=== PATIENT | female | born 1960 | race Caucasian/White ===

== ENCOUNTER → 2020-02-06 08:36 | Outpatient (BNVA) | payer BC, SELFPAY | PROVIDERS: PCP Internal Medicine; Referring Provider Internal Medicine; Visit Provider Student in an Organized Health Care Education/Training Program | DX: Z76.89 Persons encountering health services in other specified circumstances (principal) ==

== ENCOUNTER → 2020-05-09 08:37 | Outpatient (BNVA) | payer BC, SELFPAY | PROVIDERS: PCP Internal Medicine; Referring Provider Internal Medicine; Visit Provider Student in an Organized Health Care Education/Training Program | DX: Z13.89 Encounter for screening for other disorder (principal) | CPT/HCPCS: 20610 ==

== ENCOUNTER 2020-07-23 15:04 | Outpatient (REF) | payer BC, SELFPAY ==
--- NOTE | ~2020-07-23 | XR_ITS ---
EXAMINATION: XR SHOULDER, RIGHT CLINICAL INFORMATION: Rheumatoid arthritis. COMPARISON: None TECHNIQUE: AP external rotation, Grashey, scapular Y, and axillary views of the right shoulder. FINDINGS: Severe glenohumeral joint space narrowing with bony remodeling including flattening of the humeral head and glenoid. Subchondral sclerosis and underlying subchondral cystic change with large marginal osteophytes. No acute fracture or dislocation. No abnormal soft tissue calcification. XR/XR shoulder RT min 2V IMPRESSION: Severe glenohumeral osteoarthritis with prominent bony remodeling.
[2020-07-23 16:40] LABS: MANUAL DIFF FLAG NO
[2020-07-23 16:47] LABS: Basophils Absolute Auto 0.1 X10*3/uL (0.0-0.2); Basophils Percent Auto 0.4 % (0-2); Eosinophils Absolute Auto 0.2 X10*3/uL (0.0-0.4); Eosinophils Percent Auto 1.7 % (0-4); Hematocrit 41.8 % (37-47); Imm Gran Abs Auto 0.08 X10*3/uL (0.00-0.03); Imm Gran Pct Auto 0.7 % (0.0-0.4); Lymphocytes Absolute Auto 1.7 X10*3/uL (1.2-4.9); Lymphocytes Percent Auto 14.9 % (20-40); Mean Corpuscular HGB Conc 31.1 g/dl (31.0-35.0); Mean Corpuscular Hemoglobin 30.1 pg (27.0-33.0); Mean Corpuscular Volume 96.8 fL (80-98); Mean Platelet Volume 9.8 fL (9.4-12.3); Monocytes Absolute Auto 0.8 X10*3/uL (0.1-1.2); Monocytes Percent Auto 7.3 % (2-11); Neutrophils Absolute Auto 8.4 X10*3/uL (2.0-8.3); Platelet Count 311 X10*3/uL (160-400); Red Blood Count 4.32 X10*6/uL (4.20-5.50); Red Cell Distribution Width 12.5 % (11.0-16.0); White Blood Count 11.2 X10*3/uL (4.8-10.8)
[2020-07-23 17:03] LABS: Alanine Aminotransferase 19 U/L (0-31); Albumin Level 4.1 g/dL (3.5-5.0); Alkaline Phosphatase 94 U/L (39-117); Anion Gap 13 (12-20); Aspartate Amino Transferase 17 U/L (5-31); Bilirubin Total 0.4 mg/dL (0.0-1.0); Blood Urea Nitrogen 17 mg/dL (9-16); C Reactive Protein 2.76 mg/dL (< or = 0.50); Calcium 9.7 mg/dL (8.4-10.2); Carbon Dioxide 31 mmol/L (22-29); Chloride 103 mmol/L (96-108); Estimated Glomerular Filt Rate > 60; Glucose Random 81 mg/dL (60-115); Potassium 4.9 mmol/L (3.3-5.1); Sodium 142 mmol/L (135-145); Total Protein 7.2 g/dL (6.5-8.0)
[2020-07-23 17:41] LABS: Erythrocyte Sedimentation Rate 30 MM/HR (0-20)
== END 2020-07-23 15:05 | disposition home or self-care (01) ==
LOC: HO.LAB 15:04
PROVIDERS: PCP Internal Medicine; Visit Provider Student in an Organized Health Care Education/Training Program
DX: M05.9 Rheumatoid arthritis with rheumatoid factor, unspecified (principal)
CPT/HCPCS: 36415; 73030; 80053; 85025; 85652; 86140

== ENCOUNTER 2020-08-01 09:15 | Outpatient (REF) | payer BC, SELFPAY ==
--- NOTE | ~2020-08-01 | XR_ITS ---
EXAMINATION: XR BILATERAL KNEES CLINICAL INFORMATION: Knee pain COMPARISON: None TECHNIQUE: Bilateral knees one view. Right knee 2 views. FINDINGS: Right Knee: Severe medial compartment arthritis, moderate to severe lateral compartment arthritis, mild patellofemoral arthritis. This is characterized by joint space loss, osteophytes, sclerosis. Small suprapatellar joint fluid. No visible acute fracture or dislocation. Osteopenia. Ossific densities projected in the intercondylar region, could reflect osteophytes or loose bodies. Left Knee: Medial and lateral compartment joint spaces are relatively maintained. XR/XR knee standing BI IMPRESSION: Right knee tricompartment osteoarthritis. Severe medial compartment arthritis. Possible loose bodies.
--- NOTE | ~2020-08-01 | XR_ITS ---
EXAMINATION: XR BILATERAL KNEES CLINICAL INFORMATION: Knee pain COMPARISON: None TECHNIQUE: Bilateral knees one view. Right knee 2 views. FINDINGS: Right Knee: Severe medial compartment arthritis, moderate to severe lateral compartment arthritis, mild patellofemoral arthritis. This is characterized by joint space loss, osteophytes, sclerosis. Small suprapatellar joint fluid. No visible acute fracture or dislocation. Osteopenia. Ossific densities projected in the intercondylar region, could reflect osteophytes or loose bodies. Left Knee: Medial and lateral compartment joint spaces are relatively maintained. XR/XR knee RT 2V IMPRESSION: Right knee tricompartment osteoarthritis. Severe medial compartment arthritis. Possible loose bodies.
== END 2020-08-01 09:16 | disposition home or self-care (01) ==
LOC: HO.HOSX 09:15
PROVIDERS: Visit Provider Orthopaedic Surgery
DX: M19.211 Secondary osteoarthritis, right shoulder (principal); M05.9 Rheumatoid arthritis with rheumatoid factor, unspecified; M17.5 Other unilateral secondary osteoarthritis of knee
CPT/HCPCS: 73560; 73565; J1100

== ENCOUNTER 2020-09-23 14:07 | Outpatient (REF) | payer MEDICARE, SELFPAY ==
[2020-09-23 14:42] LABS: MANUAL DIFF FLAG NO
[2020-09-23 14:45] LABS: Basophils Absolute Auto 0.1 X10*3/uL (0.0-0.2); Basophils Percent Auto 0.5 % (0-2); Eosinophils Absolute Auto 0.3 X10*3/uL (0.0-0.4); Eosinophils Percent Auto 2.7 % (0-4); Hematocrit 41.6 % (37-47); Hemoglobin 13.2 g/dl (12.0-16.0); Imm Gran Abs Auto 0.07 X10*3/uL (0.00-0.03); Imm Gran Pct Auto 0.7 % (0.0-0.4); Lymphocytes Absolute Auto 1.3 X10*3/uL (1.2-4.9); Lymphocytes Percent Auto 12.2 % (20-40); Mean Corpuscular HGB Conc 31.7 g/dl (31.0-35.0); Mean Corpuscular Hemoglobin 30.7 pg (27.0-33.0); Mean Corpuscular Volume 96.7 fL (80-98); Mean Platelet Volume 9.8 fL (9.4-12.3); Monocytes Absolute Auto 0.7 X10*3/uL (0.1-1.2); Monocytes Percent Auto 6.9 % (2-11); Neutrophils Absolute Auto 8.2 X10*3/uL (2.0-8.3); Platelet Count 221 X10*3/uL (160-400); Red Cell Distribution Width 13.4 % (11.0-16.0); White Blood Count 10.7 X10*3/uL (4.8-10.8)
[2020-09-23 15:13] LABS: Alanine Aminotransferase 23 U/L (0-31); Albumin Level 4.5 g/dL (3.5-5.0); Alkaline Phosphatase 70 U/L (39-117); Anion Gap 11 (12-20); Aspartate Amino Transferase 21 U/L (5-31); Bilirubin Total 0.4 mg/dL (0.0-1.0); Blood Urea Nitrogen 14 mg/dL (9-16); C Reactive Protein 0.73 mg/dL (< or = 0.50); Calcium 10.1 mg/dL (8.4-10.2); Carbon Dioxide 31 mmol/L (22-29); Chloride 103 mmol/L (96-108); Estimated Glomerular Filt Rate > 60; Glucose Random 90 mg/dL (60-115); Sodium 140 mmol/L (135-145); Total Protein 7.1 g/dL (6.5-8.0)
[2020-09-23 15:29] LABS: Erythrocyte Sedimentation Rate 7 MM/HR (0-20)
== END 2020-09-23 14:08 | disposition home or self-care (01) ==
LOC: HO.LAB 14:07
PROVIDERS: Visit Provider Student in an Organized Health Care Education/Training Program
DX: M05.9 Rheumatoid arthritis with rheumatoid factor, unspecified (principal)
CPT/HCPCS: 36415; 80053; 85025; 85652; 86140

== ENCOUNTER 2020-09-24 09:19 | Outpatient (REF) | payer MEDICARE, SELFPAY ==
[2020-09-24 11:12] LABS: Glucose Urine UA NEG (NEG); Leukocyte Esterase Urine NEG (NEG); Nitrite Urine NEG (NEG); PH 5.5 (5.0-8.0); Specific Gravity - Urine >= 1.030 (1.005-1.025); Urine Blood NEG (NEG); Urine Ketones 5 MG/DL (NEG); Urine Protein NEG (NEG-TRACE)
[2020-09-24 11:18] LABS: Appearance Urine HAZY; Color Urine DARK YELLOW
[2020-09-24 12:32] LABS: Amorphous Sediment Urine 4+ /LPF; RBC Urine 0 /HPF (0); Squamous Epithelial Cell Urine TRACE /LPF; WBC Urine 0 /HPF (0-4)
== END 2020-09-24 09:20 | disposition home or self-care (01) ==
LOC: HO.LAB 09:19
PROVIDERS: PCP Internal Medicine; Visit Provider Student in an Organized Health Care Education/Training Program
DX: M05.9 Rheumatoid arthritis with rheumatoid factor, unspecified (principal); L40.9 Psoriasis, unspecified; Z79.52 Long term (current) use of systemic steroids; Z79.899 Other long term (current) drug therapy
CPT/HCPCS: 81001; 99212

== ENCOUNTER → 2020-11-06 09:57 | Outpatient (BNVA) | payer MEDICARE, MEDICAID, SELFPAY | PROVIDERS: PCP Internal Medicine; Visit Provider Orthopaedic Surgery | DX: Z01.812 Encounter for preprocedural laboratory examination (principal); Z01.810 Encounter for preprocedural cardiovascular examination ==

== ENCOUNTER → 2020-12-06 11:31 | Outpatient (BNVA) | payer MEDICARE, MEDICAID, SELFPAY | PROVIDERS: Visit Provider Physician Assistant | CPT/HCPCS: 99212 ==

== ENCOUNTER 2020-12-10 13:19 | Inpatient (IN) | payer MEDICARE, MEDICAID, SELFPAY ==
[2020-11-27 17:39] LABS: MANUAL DIFF FLAG NO
[2020-11-27 17:45] LABS: Basophils Absolute Auto 0.1 X10*3/uL (0.0-0.2); Basophils Percent Auto 0.5 % (0-2); Eosinophils Absolute Auto 0.2 X10*3/uL (0.0-0.4); Eosinophils Percent Auto 1.8 % (0-4); Hematocrit 38.4 % (37-47); Hemoglobin 11.9 g/dl (12.0-16.0); Imm Gran Abs Auto 0.07 X10*3/uL (0.00-0.03); Imm Gran Pct Auto 0.7 % (0.0-0.4); Lymphocytes Absolute Auto 1.3 X10*3/uL (1.2-4.9); Lymphocytes Percent Auto 13.2 % (20-40); Mean Corpuscular Hemoglobin 30.3 pg (27.0-33.0); Mean Corpuscular Volume 97.7 fL (80-98); Mean Platelet Volume 9.7 fL (9.4-12.3); Monocytes Absolute Auto 0.6 X10*3/uL (0.1-1.2); Monocytes Percent Auto 5.6 % (2-11); Neutrophils Absolute Auto 7.8 X10*3/uL (2.0-8.3); Neutrophils Percent Auto 78.2 % (45-73); Platelet Count 338 X10*3/uL (160-400); Red Blood Count 3.93 X10*6/uL (4.20-5.50); Red Cell Distribution Width 12.1 % (11.0-16.0)
[2020-11-27 18:12] LABS: Alanine Aminotransferase 20 U/L (0-31); Albumin Level 3.9 g/dL (3.5-5.0); Alkaline Phosphatase 84 U/L (39-117); Anion Gap 16 (12-20); Aspartate Amino Transferase 16 U/L (5-31); Bilirubin Total 0.4 mg/dL (0.0-1.0); Blood Urea Nitrogen 10 mg/dL (9-16); C Reactive Protein 3.57 mg/dL (< or = 0.50); Calcium 9.9 mg/dL (8.4-10.2); Carbon Dioxide 29 mmol/L (22-29); Chloride 101 mmol/L (96-108); Estimated Glomerular Filt Rate > 60; Glucose Random 171 mg/dL (60-115); Sodium 141 mmol/L (135-145); Total Protein 6.8 g/dL (6.5-8.0)
[2020-11-27 18:34] LABS: Erythrocyte Sedimentation Rate 44 MM/HR (0-20)
--- NOTE | 2020-12-04 10:55 | ECG_ITS ---
Test Reason : preop Blood Pressure : / mmHG Vent. Rate : 059 BPM Atrial Rate : 059 BPM P-R Int : 158 ms QRS Dur : 090 ms QT Int : 406 ms P-R-T Axes : 063 010 055 degrees QTc Int : 401 ms Sinus bradycardia Otherwise normal ECG No previous ECGs available Referred By: Asher Reese Electronically Signed By:JANIE FULTON
[2020-12-04 11:16] VITALS: BP 166/87; PULSE 61; RESP 20; O2SAT 97; BMI 33.6
--- NOTE | 2020-12-04 11:46 | P.CONAN_ITS ---
Documented by User: Brittany Carrion NP 12/06/20 14:31 HPI - Anesthesia Eval Consult details Narrative: 60yo F for Right Knee Replacement Total PCP cleared Daily prednisone for RA - also Orencia injections weekly Severe PONV *Multiple Med allergies - NSAIDs = Anaphylaxis* PMFSH Active Problems Active Problems: All Active Problems (Updated 12/04/20 @ 11:32 by Stefania Panchal RN) [facility] systemic steroid user (Acute) [facility] methotrexate user (Acute) Tendinopathy of right rotator cuff (Acute) Secondary osteoarthritis of right shoulder (Acute) Psoriasis (Acute) Seropositive rheumatoid arthritis (Acute) Past Medical History Medical History COVID-19 vaccine series completed Hiatal hernia Post-operative nausea and vomiting Psoriasis Seropositive rheumatoid arthritis Family History Family History Mother Diabetes Father Alzheimer disease Family history of problems with anesthesia: No Surgical History Surgical History H/O colonoscopy Hx of appendectomy Hx of right knee surgery Hx of tubal ligation History of Problems with Anesthesia: No Social History Social History Are you a primary director of health care marketing to a significant other at home: No Do you presently have visiting nurse or other home services: No Alcohol intake: never Patient Tobacco Use Status: Former Tobacco user Quit Date: 32 years ago Tobacco use type: Cigarette Cigarettes Per Day: 15 Years Smoked: 10 Use of substances other than those prescribed or required for medical reasons: Yes Substance Use Type Other:: edible for pain control Have you been hit, kicked, punched, or otherwise hurt by someone within the past year? If so, by whom?: No Are you DNR?: No Advance Directives: No Advance Directives Information Provided: Yes (does not have a HCP) Advance Directives on File: No Recently lost weight without trying: No Eating poorly because of decreased appetite: No Nutrition Risks: No Nutritional Risk Patient : No FDLMP: N/A Poor oral hygiene: No Narrative Narrative: No recent illness No CP/SOB with >4 mets Meds Allergies Allergy/AdvReac Type Severity Reaction Status Date / Time amoxicillin [Augmentin] Allergy Severe Anaphylaxis Verified 12/10/20 07:29 clavulanic acid [Augmentin] Allergy Severe Anaphylaxis Verified 12/10/20 07:29 NSAIDS (Non-Steroidal Allergy Severe Anaphylaxis Verified 12/10/20 07:29 Anti-Inflamma penicillin V Allergy Severe Rash Verified 12/10/20 07:29 hydroxychloroquine Allergy Intermediate rash Verified 12/10/20 07:29 [Plaquenil] Home Medications Medication Instructions Recorded Confirmed Last Taken Type calcium carbonate 600 mg calcium 600 mg PO DAILY 02/06/20 12/04/20 Unknown History (1,500 mg) tablet (Calcium) cholecalciferol (vitamin D3) 10 10 mcg PO DAILY 02/06/20 12/04/20 Unknown History mcg (400 unit) chewable tablet (Vitamin D3) acetaminophen 650 mg 1,300 mg PO QAM 12/04/20 12/04/20 Unknown History tablet,extended release multivitamin 1 tab PO DAILY 12/04/20 12/04/20 Unknown History sertraline 25 mg tablet 25 mg PO DAILY 12/04/20 12/04/20 12/10/20 05:30 History Exam Exam Date and Time: December 04, 2020 1146 Height,Weight and Vital Signs: Height 5 ft 7 in Weight 97.522 kg Last Vital Signs Pulse 61 12/04/20 11:16 Resp 20 12/04/20 11:16 BP 166/87 H 12/04/20 11:16 Pulse Ox 97 12/04/20 11:16 Pertinent Lab Results Pertinent Lab Results: Laboratory Tests 11/27/20 11/27/20 11/27/20 16:15 16:15 16:15 WBC 10.0 RBC 3.93 L Hgb 11.9 L Hct 38.4 MCV 97.7 MCH 30.3 MCHC 31.0 RDW 12.1 Plt Count 338 D MPV 9.7 Immature Gran % (Auto) 0.7 H Neut % (Auto) 78.2 H Lymph % (Auto) 13.2 L [place] % (Auto) 5.6 Eos % (Auto) 1.8 Baso % (Auto) 0.5 Lymph # (Auto) 1.3 [place] # (Auto) 0.6 Eos # (Auto) 0.2 Baso # (Auto) 0.1 Abs Immat Gran (auto) 0.07 H Absolute Neuts (auto) 7.8 Absolute Nucleated RBC 0.000 Nucleated RBC % (auto) 0.0 ESR 44 H Sodium 141 Potassium 5.0 Chloride 101 Carbon Dioxide 29 Anion Gap 16 BUN 10 Creatinine 0.78 Estim Creat Clear Calc TNP Estimated GFR > 60 Random Glucose 171 H D Calcium 9.9 Total Bilirubin 0.4 AST 16 ALT 20 Alkaline Phosphatase 84 C-Reactive Protein 3.57 H Total Protein 6.8 Albumin 3.9 Narrative Narrative: EKG 12/04/20 Vent. Rate : 059 BPM ? ? Atrial Rate : 059 BPM ?? P-R Int : 158 ms? QRS Dur : 090 ms ? ? QT Int : 406 ms ? ? ? P-R-T Axes : 063 010 055 degrees ?? QTc Int : 401 ms ? Sinus bradycardia Otherwise normal ECG No previous ECGs available Airway Mallampati Class: I TM Dist: >3cm Neck ROM: Full Loose/Missing/Broken Teeth: No (Capped molars, perm bridge left lower) Heart: RRR Lungs: CTAB Assessment and Plan Assessment Anesthesia Assessment: Anesthesia Plan Discussed and PAT Visit Final Anesthetic Review Family History of Problems with Anesthesia: No History of Problems with Anesthesia: No Documented by User: Griffin Benz MD 12/10/20 10:35 [facility] Past Medical History Medical History COVID-19 vaccine series completed Hiatal hernia Post-operative nausea and vomiting Psoriasis Seropositive rheumatoid arthritis Family History Family History Mother Diabetes Father Alzheimer disease Surgical History Surgical History H/O colonoscopy Hx of appendectomy Hx of right knee surgery Hx of tubal ligation History of Problems with Anesthesia: Yes (PONV) Social History Social History (Reviewed 12/06/20 @ 11:48 by Jessica Louis [facility] Are you a primary director of health care marketing to a significant other at home: No Do you presently have visiting nurse or other home services: No Alcohol intake: never Patient Tobacco Use Status: Former Tobacco user Quit Date: 32 years ago Tobacco use type: Cigarette Cigarettes Per Day: 15 Years Smoked: 10 Use of substances other than those prescribed or required for medical reasons: Yes Substance Use Type Other:: edible for pain control Have you been hit, kicked, punched, or otherwise hurt by someone within the past year? If so, by whom?: No Are you DNR?: No Advance Directives: No Advance Directives Information Provided: Yes (does not have a HCP) Advance Directives on File: No Recently lost weight without trying: No Eating poorly because of decreased appetite: No Nutrition Risks: No Nutritional Risk Patient : No FDLMP: N/A Poor oral hygiene: No Meds Allergies Allergy/AdvReac Type Severity Reaction Status Date / Time amoxicillin [Augmentin] Allergy Severe Anaphylaxis Verified 12/10/20 07:29 clavulanic acid [Augmentin] Allergy Severe Anaphylaxis Verified 12/10/20 07:29 NSAIDS (Non-Steroidal Allergy Severe Anaphylaxis Verified 12/10/20 07:29 Anti-Inflamma penicillin V Allergy Severe Rash Verified 12/10/20 07:29 hydroxychloroquine Allergy Intermediate rash Verified 12/10/20 07:29 [Plaquenil] Home Medications Medication Instructions Recorded Confirmed Last Taken Type calcium carbonate 600 mg calcium 600 mg PO DAILY 02/06/20 12/04/20 Unknown History (1,500 mg) tablet (Calcium) cholecalciferol (vitamin D3) 10 10 mcg PO DAILY 02/06/20 12/04/20 Unknown History mcg (400 unit) chewable tablet (Vitamin D3) acetaminophen 650 mg 1,300 mg PO QAM 12/04/20 12/04/20 Unknown History tablet,extended release multivitamin 1 tab PO DAILY 12/04/20 12/04/20 Unknown History sertraline 25 mg tablet 25 mg PO DAILY 12/04/20 12/04/20 12/10/20 05:30 History Assessment and Plan Final Anesthetic Review History of Problems with Anesthesia: Yes (PONV) NPO: Yes ASA Class: III Final Preanesthetic Review: No Changes in Pt Med Stat, Meds/Allgs Chart Reviewed, Consent Obtained/Reviewed and Anes Risks/Benef Reviewed Patient Risk: Intermediate Procedure Risk: Low Anesthetic Plan Anesthetic Plan: MAC:, Spinal, Regional Block and Agree w/ Assess. and Plan Disposition: Standard PACU
[2020-12-04 15:00] LABS: MRSA Nasal PCR NEGATIVE (Negative); SA Nasal PCR NEGATIVE (Negative)
[2020-12-10] VITALS (17 sets, daily range): BP systolic 116–187; BP diastolic 49–89; PULSE 53–72; RESP 15–20; TEMP 36.1–37.1; O2SAT 94–99
--- NOTE | ~2020-12-10 | XR_ITS ---
EXAMINATION: XR KNEE, RIGHT CLINICAL INFORMATION: Status post right total knee arthroplasty COMPARISON: Radiographs right knee 08/01/2020. TECHNIQUE: AP and 2 cross table lateral views of the right knee are obtained portably for 3 views. FINDINGS: Patient is status post right total knee arthroplasty. The hardware is intact and in expected alignment. There is no fracture or dislocation. No destructive process. There is subcutaneous emphysema and overlying skin jl as expected. XR/XR knee RT 2V IMPRESSION: Status post total right knee arthroplasty. Hardware intact.
[2020-12-10 06:48] LABS: COVID-19 Test Negative (Negative)
[2020-12-10] MEDS: Scopolamine 1.5 MG PATCH.TD.3 TRANSDERMA (07:12)
--- NOTE | 2020-12-10 07:19 | MHC.SHP ---
Pre-Procedural Eval Section A Date of Service: 12/10/20 The patient is an INPATIENT: No Changes since office visit: Yes Patient answered all questions; No Cold of Flu in the past 2 weeks, No New Medical Problems and No Changes in Medication The History & Physical has been completed within 30 days and I have reviewed it.: Yes Section B Chief Complaint: right knee osteoarthritis Allergies: Allergies Allergy/AdvReac Type Severity Reaction Status Date / Time amoxicillin [Augmentin] Allergy Severe Anaphylaxis Verified 12/06/20 11:48 clavulanic acid [Augmentin] Allergy Severe Anaphylaxis Verified 12/06/20 11:48 NSAIDS (Non-Steroidal Allergy Severe Anaphylaxis Verified 12/06/20 11:48 Anti-Inflamma penicillin V Allergy Severe Rash Verified 12/06/20 11:48 hydroxychloroquine Allergy Intermediate rash Verified 12/06/20 11:48 [Plaquenil] Plan I have reviewed the history and physical and performed a pertinent physical examination on my patient. No changes have occurred unless specified.
[2020-12-10] MEDS: Lactated Ringers 1,000 ML 100 ML IVCONT (07:24)
--- NOTE | 2020-12-10 08:15 | PC.NURSE ---
Verified with Leslie from Pharmacy that 1500mg Vanco was the correct dosing for patients weight. Per Leslie, this dose can be mixed with 250ml NS or 500ml NS.
--- NOTE | 2020-12-10 09:24 | PM.OP ---
Brief Operative Note Date of Service: 12/10/20 Pre-op diagnosis: right knee OA Post-op diagnosis: same Procedure: Right TKA Implants: Lucia triathalon press fit CR 06/05/12 Surgeon: Asher Reese MD Anesthesia: GETA and regional Was an Tent Assembler used for this Procedure?: Yes Tent Assembler: Indira Lemus Estimated blood loss (mL): 200 IV fluids (mL): 1,000 Pathology: other Condition: stable Disposition: PACU
--- NOTE | 2020-12-10 09:25 | P.OP_ITS ---
Operative Note Operative Note Date of Service: 12/10/20 Narrative: Pre-op diagnosis: right knee OA Post-op diagnosis: same Procedure: Right TKA Implants: Se[place] triathalon press fit CR 06/05/12 Surgeon: Asher Reese MD Anesthesia: GETA and regional Was an Document Review Specialist used for this Procedure?: Yes Document Review Specialist: Indira Lemus Estimated blood loss (mL): 200 IV fluids (mL): 1,000 Pathology: other Condition: stable Disposition: PACU Procedure in detail: Patient was brought to the operating room and prepped and draped in standard sterile fashion. A time-out was called to identify proper site proper procedure proper surgeon IV antibiotics were administered. 1 g of IV tranexamic acid was also administered. I began by making a midline incision to the retinaculum and performed a sub-vastus approach. The patella was translated laterally and the knee was flexed up. The medial compartment was eburnated. I performed a medial peel and resected the infrapatellar fat pad. Stan's line was then used to drill an intramedullary femoral guide and my distal femur cut was made in 5 de grees of valgus. I then measured a # _3__ femur and placed my cutting guide and made my anterior posterior and chamfer cuts protecting the soft tissues at all times. Once I was satisfied with my cut I turned my attention to the tibia. I removed the meniscus and , using an external cutting guide, in line with the tibial crest and the third ray, I made my distal tibial cut ( 3 deg slope) while protecting the PCL the posterior soft tissues at all times. An extension block was used to confirm appropriate amount of bony resection. I then sized a #_3_ tibia and once I was satisfied that there was good tibial coverage I placed my trial and with the trial femur in place took the knee through range of motion. I was satisfied with the extension and flexion as well as the stability at 0, 30 and 90 degrees. I then turned my attention to the patella where I removed 1 cm from the undersurface of the patella and then trialed a ___29a___ patellar button. Again the knee was taken through range of motion I was satisfied with the tracking. I then returned to the femur and drilled my femoral lug holes and prepared the tibia. Femoral bone plug was then placed and the knee was irrigated copiously. I then press fit the patella, tibia and femur in standard fashion. I trialed different inserts until I selected a #__13__ insert. The final insert was placed and a 3 minutes iodine soak with local TXA was performed. The knee was then closed with a running Quill suture, a 3 0 Vicryl and jl on the skin. Patient was then placed in sterile dressing and brought to recovery room in stable condition there were no known complications.
[2020-12-10] MEDS: Dextrose 5 % and 0.45 % NaCl 1,000 ML 80 ML IVCONT ×2 (11:11→23:28)
[2020-12-10] MEDS: oxyCODONE HCl Immed Release 5 MG TABLET PO ×2 (13:08→17:34)
[2020-12-10] MEDS: HYDROmorphone HCl 0.5 MG/0.5 ML SYRINGE 0.25 MG IVPUSH (13:09)
--- NOTE | 2020-12-10 14:37 | PM.IMCN ---
History of Present Illness Data of Consult Service Date: 12/10/20 Requesting physician: Asher Reese Primary Care Provider: Unknown Physician HPI Reason for consult: Medical Management 60 year old women with history of depression admitted by Orthopedic surgery and is status post right total knee arthroplasty. At this point she is having minimal amount of pain. She has no acute medical problems. Her vital signs are stable. She is currently resting in bed. Medical consultation was placed. Review of Systems Review of Systems: Denies any recent fever chills or decrease in appetite respiratory denies any shortness of breath coverage production cardiovascular is adjustment of any PND or edema gastrointestinal denies any dysphagia abdominal pain nausea vomiting or diarrhea genitourinary denies any dysuria frequency or hematuria musculoskeletal denies any joint pain or swelling neuropsych denies any weakness or seizures all other systems reviewed are negative [facility] Medical History COVID-19 vaccine series completed Hiatal hernia Post-operative nausea and vomiting Psoriasis Seropositive rheumatoid arthritis Family History Mother Diabetes Father Alzheimer disease Surgical History H/O colonoscopy Hx of appendectomy Hx of right knee surgery Hx of tubal ligation Social History Household Members: Spouse Housing: House Are you a primary career discovery teacher to a significant other at home: No Do you presently have visiting nurse or other home services: No Alcohol intake: never Patient Tobacco Use Status: Former Tobacco user Quit Date: 30 years ago Tobacco use type: Cigarette Cigarettes Per Day: 15 Years Smoked: 6 Use of substances other than those prescribed or required for medical reasons: No Substance Use Type Other:: edible for pain control Have you been hit, kicked, punched, or otherwise hurt by someone within the past year? If so, by whom?: No Do you feel safe in your current relationship?: Yes Is there a partner from a previous relationship who is making you feel unsafe now?: No Are you made to feel afraid or neglected: No Restorationist Healthcare Practices: nondenominational Are you DNR?: No Advance Directives: No Advance Directives Information Provided: Yes (does not have a HCP) Advance Directives on File: No Do you have thoughts of harming others: None Do you have a plan to hurt others: No Plan Recently lost weight without trying: No Eating poorly because of decreased appetite: No Nutrition Risks: No Nutritional Risk Patient : No FDLMP: N/A : No Poor oral hygiene: No Meds Allergies Allergy/AdvReac Type Severity Reaction Status Date / Time amoxicillin [Augmentin] Allergy Severe Anaphylaxis Verified 12/10/20 07:29 clavulanic acid [Augmentin] Allergy Severe Anaphylaxis Verified 12/10/20 07:29 NSAIDS (Non-Steroidal Allergy Severe Anaphylaxis Verified 12/10/20 07:29 Anti-Inflamma penicillin V Allergy Severe Rash Verified 12/10/20 07:29 hydroxychloroquine Allergy Intermediate rash Verified 12/10/20 07:29 [Plaquenil] Active Medications: Current Medications Generic Name Dose Route Start Last Admin Trade Name Freq PRN Reason Stop Dose Admin Acetaminophen 650 mg 12/10/20 14:29 Acetaminophen 325 Mg Tablet PO Q6H PRN Pain, Mild (Pain Scale 1-3) Docusate Sodium 100 mg 12/10/20 21:00 Docusate Sodium 100 Mg Capsule PO BID KALIE Folic Acid 1 mg 12/11/20 09:00 Folic Acid 1 Mg Tablet PO DAILY KALIE Hydromorphone HCl 0.25 mg 12/10/20 10:35 12/10/20 13:09 Hydromorphone Hcl 0.5 Mg/0.5 Ml Syringe IVPUSH 0.25 mg Q5M PRN Administration Pain, Severe (Pain Scale 7-10) Protocol Hydromorphone HCl 0.25 mg 12/10/20 14:33 Hydromorphone Hcl 1 Mg/Ml Syringe IVPUSH Q4H PRN Pain, Severe (Pain Scale 7-10) Protocol Promethazine HCl 12.5 mg/ 50.5 mls @ 202 mls/hr 12/10/20 10:35 Sodium Chloride IV ONCE PRN Nausea and Vomiting Dextrose/Sodium Chloride 1,000 mls @ 80 mls/hr 12/10/20 11:08 12/10/20 11:11 D51/2ns IVCONT 80 mls/hr .[id number] KALIE Administration Vancomycin HCl 1,000 mg/ 270 mls @ 270 mls/hr 12/10/20 19:00 Sodium Chloride IV 12/10/20 19:59 POSTOP ONE Ondansetron HCl 4 mg 12/10/20 10:35 Ondansetron Hcl 4 Mg/2 Ml Vial IVPUSH ONCE PRN Nausea and Vomiting Ondansetron HCl 4 mg 12/10/20 14:29 Ondansetron Hcl 4 Mg/2 Ml Vial IVPUSH Q8H PRN Nausea and Vomiting Oxycodone HCl 5 mg 12/10/20 14:29 Oxycodone Hcl Immed Release 5 Mg Tablet PO Q4H PRN Pain, Moderate (Pain Scale 4-6 Oxycodone HCl 10 mg 12/10/20 21:00 Oxycodone Hcl Er 10 Mg Tab.Er.12h PO BID [facility] Sertraline HCl 25 mg 12/11/20 09:00 Sertraline Hcl 25 Mg Tablet PO DAILY [facility] Sodium Chloride 3 ml 12/10/20 16:00 0.9 % Sodium Chloride Flush 3 Ml Syringe IVFLUSH QSHIFT [facility] Home Medications Medication Instructions Recorded Confirmed Last Taken Type calcium carbonate 600 mg calcium 600 mg PO DAILY 02/06/20 12/04/20 Unknown History (1,500 mg) tablet (Calcium) cholecalciferol (vitamin D3) 10 10 mcg PO DAILY 02/06/20 12/04/20 Unknown History mcg (400 unit) chewable tablet (Vitamin D3) acetaminophen 650 mg 1,300 mg PO QAM 12/04/20 12/04/20 Unknown History tablet,extended release multivitamin 1 tab PO DAILY 12/04/20 12/04/20 Unknown History sertraline 25 mg tablet 25 mg PO DAILY 12/04/20 12/04/20 12/10/20 05:30 History Physical Exam Vital Signs and Narrative: Vital Signs: Last Vital Signs Temp 96.9 F 12/10/20 14:07 Pulse 58 12/10/20 14:07 Resp 18 12/10/20 14:07 BP 144/78 H 12/10/20 14:07 Pulse Ox 94 12/10/20 14:07 Body Mass Index 33.6 Appearing in no acute distress head is normocephalic atraumatic eyes pupils are PERRLA sclera is anicteric mouth throat mucous membranes are intact and moist neck is supple no lymphadenopathy, no JVD noted lung sounds are clear to auscultation heart regular rate rhythm, clear S1, S2 positive bowel sounds, abdomen is soft, nontender neuro patient is alert x3, no focal deficits MSK right knee dressing, surgical dressing present, incision of visualized Results Labs CBC and Chem 7: 11/27/20 16:15 11/27/20 16:15 Labs: Laboratory Results - last 24 hr 12/10/20 06:14 COVID-19 ([facility]) Negative COVID-19 Clin Com See Note Imaging Radiologist's Impressions: Impressions Knee X-Ray 12/10/20 09:46 IMPRESSION: Status post total right knee arthroplasty. Hardware intact. Assessment and Plan (1) Osteoarthritis of right knee: Status: Acute (2) Elevated blood pressure reading: Status: Acute (3) Depression: Status: Acute 60 year old women admitted by orthopedic surgery Right TKA Management as per surgical team pain managment Elevated blood pressure reading likely secondary to pain monitor mental health continue zoloft DVT prophylaxis with mechanical compression boots Attending Dr. Villalpando
[2020-12-10] MEDS: Acetaminophen 325 MG TABLET 650 MG PO (14:46)
[2020-12-10] MEDS: vancomycin HCL 1,000 MG in 0.9 % Sodium Chloride 250 ML 270 MG IV (19:34)
[2020-12-10] MEDS: HYDROmorphone HCl 1 MG/ML SYRINGE 0.25 MG IVPUSH ×2 (19:48→23:29)
[2020-12-10] MEDS: Docusate Sodium 100 MG CAPSULE PO (20:16)
[2020-12-10] MEDS: oxyCODONE HCl ER 10 MG TAB.ER.12H PO (20:16)
[2020-12-10] MEDS: 0.9 % Sodium Chloride Flush 3 ML SYRINGE IVFLUSH (23:29)
[2020-12-11] VITALS (11 sets, daily range): BP systolic 129–156; BP diastolic 58–84; PULSE 60–71; RESP 16–20; TEMP 36.3–37.1; O2SAT 92–98
[2020-12-11] MEDS: oxyCODONE HCl Immed Release 5 MG TABLET PO ×4 (00:12→20:31)
[2020-12-11] MEDS: Acetaminophen 325 MG TABLET 650 MG PO ×2 (00:12→06:03)
[2020-12-11 06:30] LABS: MANUAL DIFF FLAG NO
[2020-12-11 06:47] LABS: Anion Gap 15 (12-20); Blood Urea Nitrogen 7 mg/dL (9-16); Carbon Dioxide 27 mmol/L (22-29); Chloride 101 mmol/L (96-108); Creatinine Clr Calc Pharmacy 105.5; Estimated Glomerular Filt Rate > 60; Glucose Fasting 134 mg/dL (60-99); Potassium 4.1 mmol/L (3.3-5.1); Sodium 139 mmol/L (135-145)
[2020-12-11 06:50] LABS: Basophils Percent Auto 0.1 % (0-2); Eosinophils Percent Auto 0.1 % (0-4); Hematocrit 31.5 % (37-47); Hemoglobin 9.8 g/dl (12.0-16.0); Imm Gran Abs Auto 0.09 X10*3/uL (0.00-0.03); Lymphocytes Absolute Auto 1.4 X10*3/uL (1.2-4.9); Lymphocytes Percent Auto 16.5 % (20-40); Mean Corpuscular HGB Conc 31.1 g/dl (31.0-35.0); Mean Corpuscular Hemoglobin 30.3 pg (27.0-33.0); Mean Corpuscular Volume 97.5 fL (80-98); Mean Platelet Volume 9.4 fL (9.4-12.3); Monocytes Absolute Auto 1.1 X10*3/uL (0.1-1.2); Monocytes Percent Auto 12.9 % (2-11); Neutrophils Percent Auto 69.4 % (45-73); Platelet Count 298 X10*3/uL (160-400); Red Blood Count 3.23 X10*6/uL (4.20-5.50); Red Cell Distribution Width 12.1 % (11.0-16.0); White Blood Count 8.7 X10*3/uL (4.8-10.8)
[2020-12-11] MEDS: 0.9 % Sodium Chloride Flush 3 ML SYRINGE IVFLUSH (08:27)
[2020-12-11] MEDS: Enoxaparin Sodium 40 MG/0.4 ML SYRINGE SUBCUT (08:30)
[2020-12-11] MEDS: oxyCODONE HCl ER 10 MG TAB.ER.12H PO ×2 (08:32→20:31)
[2020-12-11] MEDS: Docusate Sodium 100 MG CAPSULE PO ×2 (08:32→20:31)
[2020-12-11] MEDS: Sertraline HCL 25 MG TABLET PO (08:32)
[2020-12-11] MEDS: Folic Acid 1 MG TABLET PO (08:32)
[2020-12-11] MEDS: HYDROmorphone HCl 1 MG/ML SYRINGE 0.25 MG IVPUSH ×3 (08:35→17:53)
--- NOTE | 2020-12-11 08:36 | PC.NURSE ---
Pt with multiple dilaudid orders one Q4 hours prn and one Q5 minutes PRN, pharmacy contacted and Q5 minutes PRN order DC'd. Dilaudid still linked to dc'd order, pharmacy contacted again and gave okay to administer medication using barcode will not scan override option.
--- NOTE | 2020-12-11 08:54 | P.PNOP_ITS ---
Subjective Subjective Date of Service: 12/11/20 Interval history: POD 1 s/p RT tka No overnight events resting in bed, has some discomfort but managing pain ok. Physical Exam Vital Signs: Vital Signs: Last Vital Signs Temp 97.6 F 12/11/20 07:00 Pulse 60 12/11/20 07:00 Resp 18 12/11/20 08:35 BP 145/67 H 12/11/20 07:00 Pulse Ox 94 12/11/20 07:00 Body Mass Index 33.6 Const: General: cooperative, healthy appearing and no acute distress Resp: Effort & Inspection: normal respiratory effort and able to speak in complete sentences Cardio: Rate: regular rate Peripheral pulses: Peripheral pulses 2+ throughout GI: Palpation (GI): Soft to palpation Skin: General skin exam: no rashes or lesions noted Extrem: Other: bandage clean dry and intact. Annette intact. No erythema or joint effusion. Calf supple nontender. Neurovascularly intact. Procedures Date of Service Date of Service: 12/11/20 Progress Note: A&P Assessment and plan (1) Status post total right knee replacement: Status: Acute Assessment and Plan: * Continue pain mgmnt * Begin lovenox for dvt ppx * begin PT for RT TKA * Dispo planning-Pending PT eval, pain mgmnt Fall Risk Details Current Medications: Current Medications Generic Name Dose Route Start Last Admin Trade Name Freq PRN Reason Stop Dose Admin Acetaminophen 650 mg 12/10/20 14:29 12/11/20 06:03 Acetaminophen 325 Mg Tablet PO 650 mg Q6H PRN Administration Pain, Mild (Pain Scale 1-3) Docusate Sodium 100 mg 12/10/20 21:00 12/11/20 08:32 Docusate Sodium 100 Mg Capsule PO 100 mg BID KALIE Administration Enoxaparin Sodium 40 mg 12/11/20 08:00 12/11/20 08:30 Enoxaparin Sodium 40 Mg/0.4 Ml Syringe SUBCUT 40 mg Q24H KALIE Administration Folic Acid 1 mg 12/11/20 09:00 12/11/20 08:32 Folic Acid 1 Mg Tablet PO 1 mg DAILY KALIE Administration Hydromorphone HCl 0.25 mg 12/10/20 14:33 12/11/20 08:35 Hydromorphone Hcl 1 Mg/Ml Syringe IVPUSH 0.25 mg Q4H PRN Administration Pain, Severe (Pain Scale 7-10) Protocol Promethazine HCl 12.5 mg/ 50.5 mls @ 202 mls/hr 12/10/20 10:35 Sodium Chloride IV ONCE PRN Nausea and Vomiting Dextrose/Sodium Chloride 1,000 mls @ 80 mls/hr 12/10/20 11:08 12/10/20 23:28 D51/2ns IVCONT 80 mls/hr .[id number] KALIE Administration Ondansetron HCl 4 mg 12/10/20 10:35 Ondansetron Hcl 4 Mg/2 Ml Vial IVPUSH ONCE PRN Nausea and Vomiting Ondansetron HCl 4 mg 12/10/20 14:29 Ondansetron Hcl 4 Mg/2 Ml Vial IVPUSH Q8H PRN Nausea and Vomiting Oxycodone HCl 5 mg 12/10/20 14:29 12/11/20 06:02 Oxycodone Hcl Immed Release 5 Mg Tablet PO 5 mg Q4H PRN Administration Pain, Moderate (Pain Scale 4-6 Oxycodone HCl 10 mg 12/10/20 21:00 12/11/20 08:32 Oxycodone Hcl Er 10 Mg Tab.Er.12h PO 10 mg BID KALIE Administration Sertraline HCl 25 mg 12/11/20 09:00 12/11/20 08:32 Sertraline Hcl 25 Mg Tablet PO 25 mg DAILY KALIE Administration Sodium Chloride 3 ml 12/10/20 16:00 12/11/20 08:27 0.9 % Sodium Chloride Flush 3 Ml Syringe IVFLUSH 3 ml QSHIFT KALIE Administration Time Spent With Patient Time: Total time spent is greater than 50% in coordination of care (as documented) at patient's floor/unit and/or counseling patient: Time with patient: less than 15 minutes Quality Stroke Does the patient have a stroke diagnosis?: No VTE Prior VTE?: No VTE Risk Level:: Surgical - high VTE Device Contraindication: N/A - Device Ordered VTE Drug Contraindication: N/A - Med Ordered
[2020-12-11] MEDS: predniSONE 5 MG TABLET PO (11:51)
[2020-12-11] MEDS: Dextrose 5 % and 0.45 % NaCl 1,000 ML 80 ML IVCONT (11:54)
--- NOTE | 2020-12-11 15:09 | HO.POSTANES ---
Post Anesthesia Evaluation Post Anesthesia Evaluation Vital Signs: Vital Signs Temp Pulse Resp BP Pulse Ox 12/11/20 13:33 18 12/11/20 11:00 98.6 F 61 20 129/58 L 97 12/11/20 09:06 60 145/67 H 94 12/11/20 08:35 18 12/11/20 07:00 97.6 F 60 18 145/67 H 94 Anesthesia: Spinal and Nerve Block Mental Status: Awake Pain Control: Satisfactory Nausea/Vomiting: None Hydration: Adequate Anesthesia-Related Issues: No Anes. Related Issues
[2020-12-12] VITALS (7 sets, daily range): BP systolic 138–153; BP diastolic 50–68; PULSE 68–86; RESP 14–18; TEMP 36.3–37.1; O2SAT 90–99
[2020-12-12] MEDS: HYDROmorphone HCl 1 MG/ML SYRINGE 0.25 MG IVPUSH ×4 (01:26→23:39)
[2020-12-12] MEDS: Dextrose 5 % and 0.45 % NaCl 1,000 ML 80 ML IVCONT ×3 (01:28→23:34)
[2020-12-12 06:35] LABS: MANUAL DIFF FLAG NO
[2020-12-12 06:48] LABS: Basophils Percent Auto 0.2 % (0-2); Eosinophils Percent Auto 0.4 % (0-4); Hematocrit 27.6 % (37-47); Hemoglobin 8.7 g/dl (12.0-16.0); Imm Gran Abs Auto 0.13 X10*3/uL (0.00-0.03); Imm Gran Pct Auto 1.4 % (0.0-0.4); Lymphocytes Absolute Auto 1.1 X10*3/uL (1.2-4.9); Lymphocytes Percent Auto 11.5 % (20-40); Mean Corpuscular HGB Conc 31.5 g/dl (31.0-35.0); Mean Corpuscular Hemoglobin 30.4 pg (27.0-33.0); Mean Corpuscular Volume 96.5 fL (80-98); Mean Platelet Volume 9.6 fL (9.4-12.3); Monocytes Absolute Auto 1.5 X10*3/uL (0.1-1.2); Monocytes Percent Auto 15.6 % (2-11); Neutrophils Absolute Auto 6.6 X10*3/uL (2.0-8.3); Neutrophils Percent Auto 70.9 % (45-73); Platelet Count 242 X10*3/uL (160-400); Red Blood Count 2.86 X10*6/uL (4.20-5.50); Red Cell Distribution Width 12.2 % (11.0-16.0); White Blood Count 9.3 X10*3/uL (4.8-10.8)
[2020-12-12 07:29] LABS: Anion Gap 10 (12-20); Blood Urea Nitrogen 4 mg/dL (9-16); Calcium 8.6 mg/dL (8.4-10.2); Carbon Dioxide 31 mmol/L (22-29); Chloride 103 mmol/L (96-108); Creatinine Clr Calc Pharmacy 110.3; Estimated Glomerular Filt Rate > 60; Glucose Fasting 133 mg/dL (60-99); Potassium 4.4 mmol/L (3.3-5.1); Sodium 140 mmol/L (135-145)
--- NOTE | 2020-12-12 08:35 | P.PNOP_ITS ---
Subjective Subjective Date of Service: 12/12/20 Interval history: POD 2 s/p RT tka No overnight events resting in bed, has some discomfort but managing pain ok.Has been out of bed with PT and did some stairs. Physical Exam Vital Signs: Vital Signs: Last Vital Signs Temp 97.3 F 12/12/20 07:53 Pulse 86 12/12/20 07:53 Resp 17 12/12/20 07:53 BP 153/68 H 12/12/20 07:53 Pulse Ox 96 12/12/20 07:53 Body Mass Index 33.6 Const: General: cooperative, healthy appearing and no acute distress Resp: Effort & Inspection: normal respiratory effort and able to speak in complete sentences Cardio: Rate: regular rate Peripheral pulses: Peripheral pulses 2+ throughout GI: Palpation (GI): Soft to palpation Skin: General skin exam: no rashes or lesions noted Extrem: Other: bandage clean dry and intact. Annette intact. No erythema or joint effusion. Calf supple nontender. Neurovascularly intact. Procedures Date of Service Date of Service: 12/12/20 Progress Note: A&P Assessment and plan (1) Status post total right knee replacement: Status: Acute Assessment and Plan: * Continue pain mgmnt * contine lovenox for dvt ppx * continue PT for RT TKA * Dispo planning-Pending PT , pain mgmn Fall Risk Details Current Medications: Current Medications Generic Name Dose Route Start Last Admin Trade Name Freq PRN Reason Stop Dose Admin Acetaminophen 650 mg 12/10/20 14:29 12/11/20 06:03 Acetaminophen 325 Mg Tablet PO 650 mg Q6H PRN Administration Pain, Mild (Pain Scale 1-3) Docusate Sodium 100 mg 12/10/20 21:00 12/11/20 20:31 Docusate Sodium 100 Mg Capsule PO 100 mg BID KALIE Administration Enoxaparin Sodium 40 mg 12/11/20 08:00 12/11/20 08:30 Enoxaparin Sodium 40 Mg/0.4 Ml Syringe SUBCUT 40 mg Q24H KALIE Administration Folic Acid 1 mg 12/11/20 09:00 12/11/20 08:32 Folic Acid 1 Mg Tablet PO 1 mg DAILY KALIE Administration Hydromorphone HCl 0.25 mg 12/10/20 14:33 12/12/20 06:48 Hydromorphone Hcl 1 Mg/Ml Syringe IVPUSH 0.25 mg Q4H PRN Administration Pain, Severe (Pain Scale 7-10) Protocol Promethazine HCl 12.5 mg/ 50.5 mls @ 202 mls/hr 12/10/20 10:35 Sodium Chloride IV ONCE PRN Nausea and Vomiting Dextrose/Sodium Chloride 1,000 mls @ 80 mls/hr 12/10/20 11:08 12/12/20 01:28 D51/2ns IVCONT 80 mls/hr .[id number] KALIE Administration Ondansetron HCl 4 mg 12/10/20 10:35 Ondansetron Hcl 4 Mg/2 Ml Vial IVPUSH ONCE PRN Nausea and Vomiting Ondansetron HCl 4 mg 12/10/20 14:29 Ondansetron Hcl 4 Mg/2 Ml Vial IVPUSH Q8H PRN Nausea and Vomiting Oxycodone HCl 5 mg 12/10/20 14:29 12/11/20 20:31 Oxycodone Hcl Immed Release 5 Mg Tablet PO 5 mg Q4H PRN Administration Pain, Moderate (Pain Scale 4-6 Oxycodone HCl 10 mg 12/10/20 21:00 12/11/20 20:31 Oxycodone Hcl Er 10 Mg Tab.Er.12h PO 10 mg BID KALIE Administration Prednisone 5 mg 12/11/20 10:45 12/11/20 11:51 Prednisone 5 Mg Tablet PO 5 mg DAILY KALIE Administration Sertraline HCl 25 mg 12/11/20 09:00 12/11/20 08:32 Sertraline Hcl 25 Mg Tablet PO 25 mg DAILY KALIE Administration Sodium Chloride 3 ml 12/10/20 16:00 12/12/20 07:17 0.9 % Sodium Chloride Flush 3 Ml Syringe IVFLUSH Not Given QSHIFT KALIE Time Spent With Patient Time: Total time spent is greater than 50% in coordination of care (as documented) at patient's floor/unit and/or counseling patient: Time with patient: 15 - 24 minutes Quality Stroke Does the patient have a stroke diagnosis?: No VTE Prior VTE?: No VTE Risk Level:: Surgical - high VTE Device Contraindication: N/A - Device Ordered VTE Drug Contraindication: N/A - Med Ordered
[2020-12-12] MEDS: Folic Acid 1 MG TABLET PO (09:18)
[2020-12-12] MEDS: predniSONE 5 MG TABLET PO (09:18)
[2020-12-12] MEDS: oxyCODONE HCl ER 10 MG TAB.ER.12H PO ×2 (09:18→20:13)
[2020-12-12] MEDS: Sertraline HCL 25 MG TABLET PO (09:18)
[2020-12-12] MEDS: Docusate Sodium 100 MG CAPSULE PO ×2 (09:18→20:14)
[2020-12-12] MEDS: Enoxaparin Sodium 40 MG/0.4 ML SYRINGE SUBCUT (09:19)
[2020-12-12] MEDS: oxyCODONE HCl Immed Release 5 MG TABLET PO ×2 (15:22→20:13)
[2020-12-13] VITALS (7 sets, daily range): BP systolic 126–171; BP diastolic 51–72; PULSE 57–75; RESP 16–20; TEMP 36.3–37.1; O2SAT 93–98
[2020-12-13] MEDS: oxyCODONE HCl Immed Release 5 MG TABLET PO (03:43)
[2020-12-13 05:42] LABS: MANUAL DIFF FLAG NO
[2020-12-13 05:46] LABS: Basophils Percent Auto 0.2 % (0-2); Eosinophils Absolute Auto 0.2 X10*3/uL (0.0-0.4); Eosinophils Percent Auto 2.2 % (0-4); Hematocrit 26.6 % (37-47); Hemoglobin 8.3 g/dl (12.0-16.0); Imm Gran Abs Auto 0.14 X10*3/uL (0.00-0.03); Imm Gran Pct Auto 1.6 % (0.0-0.4); Lymphocytes Absolute Auto 1.2 X10*3/uL (1.2-4.9); Lymphocytes Percent Auto 14.5 % (20-40); Mean Corpuscular HGB Conc 31.2 g/dl (31.0-35.0); Mean Corpuscular Hemoglobin 30.7 pg (27.0-33.0); Mean Corpuscular Volume 98.5 fL (80-98); Monocytes Percent Auto 11.9 % (2-11); Neutrophils Absolute Auto 5.9 X10*3/uL (2.0-8.3); Neutrophils Percent Auto 69.6 % (45-73); Platelet Count 216 X10*3/uL (160-400); Red Cell Distribution Width 12.2 % (11.0-16.0); White Blood Count 8.5 X10*3/uL (4.8-10.8)
[2020-12-13 06:21] LABS: Anion Gap 11 (12-20); Blood Urea Nitrogen 5 mg/dL (9-16); Calcium 8.6 mg/dL (8.4-10.2); Carbon Dioxide 30 mmol/L (22-29); Chloride 103 mmol/L (96-108); Estimated Glomerular Filt Rate > 60; Glucose Fasting 135 mg/dL (60-99); Sodium 140 mmol/L (135-145)
[2020-12-13] MEDS: HYDROmorphone HCl 1 MG/ML SYRINGE 0.25 MG IVPUSH ×4 (08:11→23:57)
[2020-12-13] MEDS: Enoxaparin Sodium 40 MG/0.4 ML SYRINGE SUBCUT (08:14)
[2020-12-13] MEDS: Folic Acid 1 MG TABLET PO (08:17)
[2020-12-13] MEDS: Sertraline HCL 25 MG TABLET PO (08:17)
[2020-12-13] MEDS: oxyCODONE HCl ER 10 MG TAB.ER.12H PO ×2 (08:17→21:12)
[2020-12-13] MEDS: Docusate Sodium 100 MG CAPSULE PO ×2 (08:17→21:12)
[2020-12-13] MEDS: predniSONE 5 MG TABLET PO (08:17)
--- NOTE | 2020-12-13 15:17 | MHC.CM.PN ---
CM met w/pt and spoke w/ortho PA and pt does not feel ready for d/c and will remain inpt tonight w/plan to D/C Home w/new [facility] tomorrow 12/14/20.
--- NOTE | 2020-12-13 16:26 | MHC.CM.PN ---
LATE ENTRY NOTE FOR 12/11/20, IMM 12/11/20, PT ADMITTED S/P R TOTAL KNEE ARTHROPLASTY, CM MET W/PT WHO REPORTS SHE IS INDEPENDENT W/CARE AT BASELINE, HAS NO DME AND NO HOME MODIFICATIONS, NO HOME SERVICES, PT WILL NEED SCRIPT FOR WALKER PRIOR TO D/C, PT IS DECLINING STR D/T FEAR OF COVID AND WOULD LIKE HOME SERVICES, REFERRAL PLACED W/[facility] AND THEY ARE FOLLOWING PT, PT HAS MANISH CABRAL PCP AND REPORTS HER IS HER HCP. TREVOR DUNN [phone], COPY REQUESTED. D/C PLAN: HOME W/[facility] FOR SN AND HOME PT, FAMILY FOR TRANSPORT.
[2020-12-13] MEDS: 0.9 % Sodium Chloride Flush 3 ML SYRINGE IVFLUSH (17:57)
[2020-12-14] VITALS: BP 169/70; PULSE 66; RESP 18; TEMP 36.4; O2SAT 66
[2020-12-14] MEDS: 0.9 % Sodium Chloride Flush 3 ML SYRINGE IVFLUSH ×2 (00:04→07:55)
[2020-12-14 04:00] VITALS: BP 137/71; PULSE 58; RESP 16; TEMP 36.1; O2SAT 95
[2020-12-14 06:30] LABS: MANUAL DIFF FLAG NO
[2020-12-14 06:36] LABS: Basophils Percent Auto 0.4 % (0-2); Eosinophils Absolute Auto 0.4 X10*3/uL (0.0-0.4); Eosinophils Percent Auto 5.1 % (0-4); Hematocrit 25.6 % (37-47); Hemoglobin 8.1 g/dl (12.0-16.0); Imm Gran Abs Auto 0.11 X10*3/uL (0.00-0.03); Imm Gran Pct Auto 1.5 % (0.0-0.4); Lymphocytes Absolute Auto 1.6 X10*3/uL (1.2-4.9); Lymphocytes Percent Auto 21.7 % (20-40); Mean Corpuscular HGB Conc 31.6 g/dl (31.0-35.0); Mean Corpuscular Hemoglobin 30.9 pg (27.0-33.0); Mean Corpuscular Volume 97.7 fL (80-98); Mean Platelet Volume 9.3 fL (9.4-12.3); Monocytes Absolute Auto 0.8 X10*3/uL (0.1-1.2); Monocytes Percent Auto 11.1 % (2-11); Neutrophils Absolute Auto 4.5 X10*3/uL (2.0-8.3); Neutrophils Percent Auto 60.2 % (45-73); Platelet Count 252 X10*3/uL (160-400); Red Blood Count 2.62 X10*6/uL (4.20-5.50); Red Cell Distribution Width 11.9 % (11.0-16.0); White Blood Count 7.5 X10*3/uL (4.8-10.8)
[2020-12-14] MEDS: oxyCODONE HCl Immed Release 5 MG TABLET PO (06:45)
[2020-12-14 06:49] LABS: Anion Gap 10 (12-20); Blood Urea Nitrogen 5 mg/dL (9-16); Calcium 8.5 mg/dL (8.4-10.2); Carbon Dioxide 33 mmol/L (22-29); Chloride 103 mmol/L (96-108); Creatinine Clr Calc Pharmacy 119.5; Estimated Glomerular Filt Rate > 60; Glucose Fasting 100 mg/dL (60-99); Sodium 142 mmol/L (135-145)
[2020-12-14] MEDS: Acetaminophen 325 MG TABLET 650 MG PO (07:52)
[2020-12-14] MEDS: Folic Acid 1 MG TABLET PO (07:53)
[2020-12-14] MEDS: oxyCODONE HCl ER 10 MG TAB.ER.12H PO (07:53)
[2020-12-14] MEDS: predniSONE 5 MG TABLET PO (07:53)
[2020-12-14] MEDS: Docusate Sodium 100 MG CAPSULE PO (07:53)
[2020-12-14] MEDS: Enoxaparin Sodium 40 MG/0.4 ML SYRINGE SUBCUT (07:53)
[2020-12-14] MEDS: Sertraline HCL 25 MG TABLET PO (07:53)
[2020-12-14 08:00] VITALS: BP 157/87; PULSE 69; RESP 18; TEMP 36.3; O2SAT 97
--- NOTE | 2020-12-14 08:31 | MHC.CM.PN ---
PT CLEARED TO DC HOME TODAY WITH [facility]. FAMILY TO TRANSPORT
--- NOTE | 2020-12-14 10:56 | P.DS_ITS ---
DS: Providers Provider Date of Service: 12/14/20 Date of admission: 12/10/20 13:19 Primary care physician: Ming Leung MD Consults: 12/10/20 14:29 Consult to Hospitalist Routine Consulting Provider: Hospitalist Reason For Exam: medical management DS: Diagnosis Discharge Diagnosis (1) Status post total right knee replacement: Status: Acute DS: Summary Hospital Course Hospital Course: The patient underwent a successful righttotal knee arthroplasty, they were transferred to PACU and then to the floor to recover. During their stay, their vitals were stable, afebrile at 97.4. Labs were unremarkable, H/H 8.1/25.6. POD 1 they were started on Lovenox for DVT ppx, they also received Physical Therapy services twice a day. Prior to discharge, their dressing was changed, incision clean dry and intact, new Aquacel dressing applied and the plan was to be discharged home with VNA services. Time Spent with Patient Time attestation: Total time spent providing and/or coordinating discharge services: Discharge coordination time: Less than 30 minutes Quality: Stroke Does the patient have a stroke diagnosis?: No Physical Exam Vital Signs: Vital Signs: Last Vital Signs Temp 97.4 F 12/14/20 08:00 Pulse 69 12/14/20 08:00 Resp 18 12/14/20 08:00 BP 157/87 H 12/14/20 08:00 Pulse Ox 97 12/14/20 08:00 Body Mass Index 33.6 Const: General: cooperative, healthy appearing and no acute distress Resp: Effort & Inspection: normal respiratory effort and able to speak in complete sentences Cardio: Rate: regular rate Peripheral pulses: Peripheral pulses 2+ throughout GI: Palpation (GI): Soft to palpation Skin: Lesions: no lesions Rashes: no rashes Extrem: Other: Right knee Aquacel clean dry and intact.? Annette intact.? No erythema or joint effusion.? Calf supple nontender.? Neurovascularly intact. DS: Data Data Completed and Pending Completed studies during hospitalization [Text1]: Pending at discharge 12/10/20 09:06 Surgical [PTH] Routine Labs on day of discharge: Laboratory Results - last 24 hr 12/14/20 12/14/20 06:02 06:02 WBC 7.5 RBC 2.62 L Hgb 8.1 L Hct 25.6 L MCV 97.7 MCH 30.9 MCHC 31.6 RDW 11.9 Plt Count 252 MPV 9.3 L Immature Gran % (Auto) 1.5 H Neut % (Auto) 60.2 Lymph % (Auto) 21.7 [place] % (Auto) 11.1 H Eos % (Auto) 5.1 H Baso % (Auto) 0.4 Lymph # (Auto) 1.6 [place] # (Auto) 0.8 Eos # (Auto) 0.4 Baso # (Auto) 0.0 Abs Immat Gran (auto) 0.11 H Absolute Neuts (auto) 4.5 Absolute Nucleated RBC 0.000 Nucleated RBC % (auto) 0.0 Sodium 142 Potassium 4.0 Chloride 103 Carbon Dioxide 33 H Anion Gap 10 L BUN 5 L Creatinine 0.60 Estim Creat Clear Calc 119.5 Estimated GFR > 60 Fasting Glucose 100 H Calcium 8.5 Discharge Plan Discharge Patient Disposition: Home Health Service Discharge Diagnosis: s/p RT TKA Referrals: Gaby EDMOND [Outside] - 1 Week Indira Lemus PA-C [Physician Input Output Clerk] - 2 Weeks (12/26/20 12:45 [facility] Indira Lemus PA-C) Discharge Medications: New acetaminophen 325 mg Tablet 650 mg PO Q6H PRN (Reason: Pain, Mild (Pain Scale 1-3)) 30 Days Qty: 240 RF: 0 docusate sodium 100 mg Capsule 100 mg PO BID 15 Days Qty: 30 RF: 0 oxycodone 5 mg Tablet 5 mg PO Q4H PRN (Reason: Pain, Moderate (Pain Scale 4-6) 7 Days Qty: 42 RF: 0 enoxaparin 40 mg/0.4 mL Syringe 40 mg subcut Q24H 42 Days Qty: 16.8 RF: 0 Continued folic acid 1 mg tablet 1 mg PO DAILY Qty: 90 RF: 1 prednisone 5 mg tablet 5 mg PO DAILY Qty: 90 RF: 1 multivitamin Tablet 1 tab PO DAILY RF: 0 sertraline 25 mg Tablet 25 mg PO DAILY RF: 0 cholecalciferol (vitamin D3) [Vitamin D3] 10 mcg (400 unit) tablet,chewable 10 mcg PO DAILY RF: 0 calcium carbonate [Calcium 600] 600 mg calcium (1,500 mg) tablet 600 mg PO DAILY RF: 0 (DME[facility] See [facility] Instructions .MEDSUPPLY Qty: 1 RF: 0 Held Orencia ClickJect 125 mg/mL auto-injector 125 mg subcut QWEEK Qty: 4 RF: 2 Hold Instructions: Resume on 12/31/20. 1-2 weeks Discontinued acetaminophen [Tylenol Arthritis] 650 mg Tablet Extended Release 1,300 mg PO QAM RF: 0 Discharge Orders: Discharge Order (Routine); Ordered 12/14/20 Ordered By: Indira Lemus Diet: regular diet Activity on Discharge: Use cane or walker Stand Alone Forms: Patient Portal Discharge page Care Plan Goals: Restore function of joint Health Concerns: none Plan of Treatment: Physical Therapy Pain management DVT prophylaxis Hold RA medications x 2 weeks Assessment: * Physical Therapy for Total knee arthroplasty: gait training, ROM 0-12, quad strength * Limit stair climbing * No showering, no tub bath-keep dressing clean, dry and intact * No driving x6 weeks * Continue Aspirin twice a day x 4 weeks * Follow up with [facility] in 2 weeks Discharge Date/Time: 12/14/20 11:02
--- NOTE | 2020-12-14 10:57 | W.MHC.F2F ---
Service Date Service Date: 12/14/20 Reasons for Services Reason for physical therapy: home safety and mobility, therapeutic exercises, restore joint function, gait/transfer training, assess need for DME and ADL training Reason for occupational therapy: home safety and mobility, therapeutic exercises, restore joint function, gait/transfer training, assess need for DME and ADL training Homebound: Leaving the home is medically contraindicated at this time without the asist of a device and/or another person due th the listed conditions above and below. Reason homebound: unsteady gait / fall risk, leg weakness, pain with ambulation, pain with transfers and unable to drive Homebound supporting statement: Pt. is considered homebound due to recent surgery. Unable to drive, poor balance, poor gait mechanics. Certification: Based on the above findings, I certify that this patient is confined to the home and needs intermittent assisted care, physical therapy and/or speech therapy, or continues to need occupational therapy. The patient is under my care, and I have initiated the establishment of the plan of care. The patient will be followed by a physician who will periodically review the plan of care.
== END 2020-12-14 11:02 | disposition home health service (06) | DRG 470 ==
LOC: HO.S3 13:20
PROVIDERS: Physician Assistant; Student in an Organized Health Care Education/Training Program; Admitting Provider Orthopaedic Surgery; PCP Internal Medicine; Visit Provider Orthopaedic Surgery
PROC: 0SRC0JA Replacement of Right Knee Joint with Synthetic Substitute, Uncemented, Open Approach (ICD-10-PCS; CPT 27447; principal; 2020-12-10 07:30)
DX: M17.11 Unilateral primary osteoarthritis, right knee (principal); F32.9 Major depressive disorder, single episode, unspecified; M05.9 Rheumatoid arthritis with rheumatoid factor, unspecified; Z87.891 Personal history of nicotine dependence; Z20.822 Contact with and (suspected) exposure to COVID-19; Z88.0 Allergy status to penicillin; Z88.6 Allergy status to analgesic agent; Z79.52 Long term (current) use of systemic steroids; Z79.899 Other long term (current) drug therapy
CPT/HCPCS: 36415; 73560; 80048; 80053; 85025; 85652; 86140; 86850; 86900; 86901; 87635; 87640; 87641; 88305; 88311; 93005; 97110; 97116; 97161; C1776; J1100; J1170; J1650; J2250; J2405; J3370

== ENCOUNTER → 2020-12-26 12:55 | Outpatient (BNVA) | payer MEDICARE, MEDICAID, SELFPAY | PROVIDERS: PCP Internal Medicine; Visit Provider Physician Assistant | DX: Z47.1 Aftercare following joint replacement surgery (principal); Z96.651 Presence of right artificial knee joint | CPT/HCPCS: 99212 ==

== ENCOUNTER 2021-02-06 12:27 | Outpatient (REF) | payer MEDICARE, MEDICAID, SELFPAY ==
[2021-02-06 13:07] LABS: MANUAL DIFF FLAG NO
[2021-02-06 13:37] LABS: Basophils Absolute Auto 0.1 X10*3/uL (0.0-0.2); Basophils Percent Auto 0.4 % (0-2); Eosinophils Absolute Auto 0.1 X10*3/uL (0.0-0.4); Eosinophils Percent Auto 1.1 % (0-4); Hematocrit 39.4 % (37.0-47.0); Hemoglobin 11.9 g/dl (12.0-16.0); Imm Gran Abs Auto 0.08 X10*3/uL (0.00-0.03); Imm Gran Pct Auto 0.7 % (0.0-0.4); Lymphocytes Absolute Auto 1.3 X10*3/uL (1.2-4.9); Lymphocytes Percent Auto 11.5 % (20-40); Mean Corpuscular HGB Conc 30.2 g/dl (31.0-35.0); Mean Corpuscular Hemoglobin 28.3 pg (27.0-33.0); Mean Corpuscular Volume 93.8 fL (80.0-98.0); Monocytes Absolute Auto 0.4 X10*3/uL (0.1-1.2); Monocytes Percent Auto 3.5 % (2-11); Neutrophils Absolute Auto 9.54 x10*3/uL (2.0-8.3); Neutrophils Percent Auto 82.8 % (45-73); Platelet Count 430 X10*3/uL (160-400); Red Cell Distribution Width 13.1 % (11.0-16.0); White Blood Count 11.5 X10*3/uL (4.8-10.8)
[2021-02-06 14:05] LABS: Alanine Aminotransferase 18 U/L (0-31); Albumin Level 4.1 g/dL (3.5-5.0); Alkaline Phosphatase 81 U/L (39-117); Anion Gap 14 (12-20); Aspartate Amino Transferase 15 U/L (5-31); Bilirubin Total 0.4 mg/dL (0.0-1.0); Blood Urea Nitrogen 12 mg/dL (9-16); C Reactive Protein 4.42 mg/dL (< or = 0.50); Calcium 10.1 mg/dL (8.4-10.2); Carbon Dioxide 31 mmol/L (22-29); Chloride 101 mmol/L (96-108); Estimated Glomerular Filt Rate > 60; Glucose Random 106 mg/dL (60-115); Potassium 4.9 mmol/L (3.3-5.1); Sodium 141 mmol/L (135-145); Total Protein 7.6 g/dL (6.5-8.0)
[2021-02-06 14:19] LABS: Erythrocyte Sedimentation Rate 51 MM/HR (0-20)
== END 2021-02-06 12:28 | disposition home or self-care (01) ==
LOC: HO.LAB 12:27
PROVIDERS: Nurse Practitioner Family; Absent Provider Student in an Organized Health Care Education/Training Program; Visit Provider Orthopaedic Surgery
DX: Z47.1 Aftercare following joint replacement surgery (principal); Z96.651 Presence of right artificial knee joint; M05.9 Rheumatoid arthritis with rheumatoid factor, unspecified
CPT/HCPCS: 36415; 80053; 85025; 85652; 86140; 99212

== ENCOUNTER 2021-02-24 09:27 | Outpatient (REF) | payer MEDICARE, MEDICAID, SELFPAY ==
[2021-02-24 10:41] LABS: MANUAL DIFF FLAG NO
[2021-02-24 10:48] LABS: Basophils Absolute Auto 0.1 X10*3/uL (0.0-0.2); Basophils Percent Auto 0.5 % (0-2); Eosinophils Absolute Auto 0.3 X10*3/uL (0.0-0.4); Eosinophils Percent Auto 2.5 % (0-4); Hematocrit 38.9 % (37.0-47.0); Imm Gran Abs Auto 0.05 X10*3/uL (0.00-0.03); Imm Gran Pct Auto 0.4 % (0.0-0.4); Lymphocytes Absolute Auto 1.3 X10*3/uL (1.2-4.9); Lymphocytes Percent Auto 11.4 % (20-40); Mean Corpuscular HGB Conc 30.8 g/dl (31.0-35.0); Mean Corpuscular Hemoglobin 28.2 pg (27.0-33.0); Mean Corpuscular Volume 91.3 fL (80.0-98.0); Monocytes Absolute Auto 0.8 X10*3/uL (0.1-1.2); Neutrophils Absolute Auto 8.8 x10*3/uL (2.0-8.3); Neutrophils Percent Auto 78.2 % (45-73); Platelet Count 373 X10*3/uL (160-400); Red Blood Count 4.26 X10*6/uL (4.20-5.50); Red Cell Distribution Width 13.4 % (11.0-16.0); White Blood Count 11.3 X10*3/uL (4.8-10.8)
[2021-02-24 11:17] LABS: Alanine Aminotransferase 17 U/L (0-31); Albumin Level 3.9 g/dL (3.5-5.0); Alkaline Phosphatase 84 U/L (39-117); Anion Gap 14 (12-20); Aspartate Amino Transferase 16 U/L (5-31); Bilirubin Total 0.2 mg/dL (0.0-1.0); Blood Urea Nitrogen 11 mg/dL (9-16); C Reactive Protein 4.86 mg/dL (< or = 0.50); Carbon Dioxide 29 mmol/L (22-29); Chloride 103 mmol/L (96-108); Estimated Glomerular Filt Rate > 60; Glucose Random 128 mg/dL (60-115); Potassium 4.6 mmol/L (3.3-5.1); Sodium 141 mmol/L (135-145); Total Protein 7.3 g/dL (6.5-8.0)
[2021-02-24 11:37] LABS: Erythrocyte Sedimentation Rate 66 MM/HR (0-20)
[2021-02-24 11:42] LABS: HBsAGNum1 0.17 S/CO (0.00-0.99); Hepatitis B Surface Antigen Negative (Negative)
[2021-02-24 11:51] LABS: HBc Num1 0.06 S/CO (0.00-0.79); Hepatitis B Core Antibody Nonreactive (Nonreactive); ~HepC Num1 0.38 S/CO (0.00-0.79); ~Hepatitis B Surface Antibody NONREACTIVE (Nonreactive); ~Hepatitis C Antibody Nonreactive (Nonreactive)
[2021-02-26 04:15] LABS: Hepatitis A Antibody IgM 0.15 Index (0-0.79); ~Hepatitis A Antibody IgM Nonreactive (Nonreactive)
[2021-02-26 20:56] LABS: TS Negative Control Passed; TS Panel A 1; TS Panel B 0; TS Positive Control Passed; TSpotTB Negative (Negative)
== END 2021-02-24 09:28 | disposition home or self-care (01) ==
LOC: HO.LAB 09:27
PROVIDERS: PCP Internal Medicine; Visit Provider Nurse Practitioner Family
DX: M05.9 Rheumatoid arthritis with rheumatoid factor, unspecified (principal); L40.9 Psoriasis, unspecified; Z79.899 Other long term (current) drug therapy; Z87.891 Personal history of nicotine dependence; Z79.52 Long term (current) use of systemic steroids
CPT/HCPCS: 36415; 80053; 85025; 85652; 86140; 86481; 86704; 86706; 86709; 86803; 87340; 99212

== ENCOUNTER → 2021-02-26 11:05 | Outpatient (BNVA) | payer MEDICAID, SELFPAY | PROVIDERS: PCP Internal Medicine; Visit Provider Orthopaedic Surgery | DX: Z47.1 Aftercare following joint replacement surgery (principal); Z96.651 Presence of right artificial knee joint | CPT/HCPCS: 99212 ==

== ENCOUNTER → 2021-03-14 10:32 | Outpatient (BNVA) | payer MEDICAID, SELFPAY | PROVIDERS: PCP Internal Medicine; Visit Provider Nurse Practitioner Family ==

== ENCOUNTER 2021-04-07 08:35 | Outpatient (REF) | payer MEDICAID, SELFPAY | END 2021-04-07 08:36 | disposition home or self-care (01) | LOC: HO.HOSX 08:35 | PROVIDERS: Visit Provider Orthopaedic Surgery | DX: Z13.89 Encounter for screening for other disorder (principal) ==

== ENCOUNTER 2021-05-01 14:18 | Outpatient (REF) | payer MEDICAID, SELFPAY ==
[2021-05-01 14:46] LABS: MANUAL DIFF FLAG NO
[2021-05-01 15:08] LABS: Basophils Percent Auto 0.5 % (0-2); Eosinophils Absolute Auto 0.4 X10*3/uL (0.0-0.4); Eosinophils Percent Auto 5.2 % (0-4); Hematocrit 38.9 % (37.0-47.0); Hemoglobin 11.8 g/dl (12.0-16.0); Imm Gran Abs Auto 0.07 X10*3/uL (0.00-0.03); Imm Gran Pct Auto 0.8 % (0.0-0.4); Lymphocytes Absolute Auto 1.2 X10*3/uL (1.2-4.9); Lymphocytes Percent Auto 14.3 % (20-40); Mean Corpuscular HGB Conc 30.3 g/dl (31.0-35.0); Mean Corpuscular Hemoglobin 28.8 pg (27.0-33.0); Mean Corpuscular Volume 94.9 fL (80.0-98.0); Mean Platelet Volume 9.4 fL (9.4-12.3); Monocytes Absolute Auto 0.4 X10*3/uL (0.1-1.2); Monocytes Percent Auto 5.2 % (2-11); Neutrophils Absolute Auto 6.1 x10*3/uL (2.0-8.3); Platelet Count 294 X10*3/uL (160-400); Red Cell Distribution Width 15.7 % (11.0-16.0); White Blood Count 8.3 X10*3/uL (4.8-10.8)
[2021-05-01 15:26] LABS: Alanine Aminotransferase 19 U/L (0-31); Albumin Level 3.7 g/dL (3.5-5.0); Alkaline Phosphatase 83 U/L (39-117); Anion Gap 12 (12-20); Aspartate Amino Transferase 19 U/L (5-31); Bilirubin Total 0.2 mg/dL (0.0-1.0); Blood Urea Nitrogen 11 mg/dL (9-16); C Reactive Protein 1.05 mg/dL (< or = 0.50); Calcium 9.8 mg/dL (8.4-10.2); Carbon Dioxide 32 mmol/L (22-29); Chloride 102 mmol/L (96-108); Cholesterol 217 mg/dL; Estimated Glomerular Filt Rate 56; Glucose Random 216 mg/dL (60-115); HDL Cholesterol 56 mg/dL; LDL Cholesterol Calculated 107 mg/dl; Potassium 5.2 mmol/L (3.3-5.1); Sodium 141 mmol/L (135-145); Total Protein 6.8 g/dL (6.5-8.0); Triglycerides 272 mg/dL
[2021-05-01 15:52] LABS: Erythrocyte Sedimentation Rate 25 MM/HR (0-20)
[2021-05-01 16:04] LABS: Reflex LDLD? No
== END 2021-05-01 14:19 | disposition home or self-care (01) ==
LOC: HO.LAB 14:18
PROVIDERS: PCP Internal Medicine; Visit Provider Nurse Practitioner Family
DX: M05.9 Rheumatoid arthritis with rheumatoid factor, unspecified (principal)
CPT/HCPCS: 36415; 80053; 80061; 85025; 85652; 86140

== ENCOUNTER → 2021-05-05 09:52 | Outpatient (BNVA) | payer MEDICARE, MEDICAID, SELFPAY | PROVIDERS: PCP Internal Medicine; Visit Provider Nurse Practitioner Family | DX: M05.9 Rheumatoid arthritis with rheumatoid factor, unspecified (principal); L40.9 Psoriasis, unspecified; Z79.52 Long term (current) use of systemic steroids; Z79.899 Other long term (current) drug therapy | CPT/HCPCS: 99212 ==

== ENCOUNTER 2021-05-12 08:38 | Outpatient (REF) | payer MEDICAID, SELFPAY | END 2021-05-12 08:39 | disposition home or self-care (01) | LOC: HO.HOSX 08:38 | PROVIDERS: Visit Provider Orthopaedic Surgery | DX: Z13.89 Encounter for screening for other disorder (principal) ==

== ENCOUNTER 2021-05-21 09:31 | Outpatient (REF) | payer MEDICAID, SELFPAY ==
--- NOTE | ~2021-05-21 | MM_ITS ---
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 COMPARISON: Previous BD dated 01/24/2019 and baseline BD dated 04/20/2011. TECHNIQUE: Using a BioIQ DXA System (software version: 13.1) manufactured by [employer], dual-energy x-ray absorptiometry was performed of the lumbar spine and left hip. The images are of good technical quality. Summary results are attached. FINDINGS: AP SPINE L1-L3 (excluding L4): The data of L1-L4 has been changed to exclude the L4 vertebral body, because degenerative changes at this level may cause overestimation of lumbar spine density. Current: BMD 0.993 g/cm2, Z-score -1.1, T-score -1.5, osteopenia, 5.3% decrease from previous, 12.6% decrease from baseline (<5% change is not significant). Prior: BMD 1.049 g/cm2. Baseline: BMD 1.136 g/cm2. LEFT FEMUR, NECK: Current: BMD 0.766 g/cm2, Z-score -1.3, T-score -2.0, osteopenia. Prior: BMD 0.917 g/cm2. Baseline: BMD 1.048 g/cm2. LEFT FEMUR, TOTAL: Current: BMD 0.858 g/cm2, Z-score -0.9, T-score -1.2, osteopenia, 10.4% decrease from previous, 23.0% decrease from baseline (<5% change is not significant). Prior: BMD 0.958 g/cm2. Baseline: BMD 1.115 g/cm2. IDENTIFIED RISK FACTORS: Menopause, family history (parent hip fracture), glucocorticoids (chronic), history of fracture (adult), rheumatoid arthritis. HISTORY OF FRACTURE: Elbow. MEDICATIONS: Calcium or multivitamin. Vitamin D. MM/XR DEXA axial skeleton IMPRESSION: 1. DIAGNOSIS: Osteopenia based on the lowest T-score value of -2.0 in the femoral neck applying World Health Organization criteria. 2. 10-YEAR FRACTURE RISK PREDICTION, FRAX: Major osteoporotic fracture (clinical spine, forearm, hip or shoulder) 50.5%. Hip fracture 5.4%. 3. Treatment Recommendations: NOF guidelines recommend consideration for treatment in postmenopausal women and men age 50 and older presenting with the following: -A hip or vertebral (clinical or morphometric) fracture. -T-score less than or equal to -2.5 at the femoral neck or spine after appropriate evaluation to exclude secondary causes. -Low bone mass at the hip or spine and a 10-year fracture probability by FRAX of greater than or equal to 3% for hip fracture or greater than or equal to 20% for major osteoporotic fracture based on the [place] adapted WHO algorithm. 4. Other Recommendations: All treatment decisions require clinical judgment and consideration of individual patient factors, including patient preferences, comorbidities, previous drug use, risk factors not captured in the FRAX model (e.g. frailty, falls, vitamin D deficiency, increased bone turnover, interval significant decline in bone density) and possible under or overestimation of fracture risk by FRAX. Additional medical evaluation for secondary cause of low bone mineral density may be appropriate. FUTURE SCAN RECOMMENDATION: People with diagnosed cases of osteoporosis or at high risk for fracture should have regular bone mineral density tests. For patients eligible for Medicare, routine testing is allowed once every 2 years. The testing frequency can be increased to one year for patients who have rapidly progressing disease, those who are receiving or discontinuing medical therapy to restore bone mass, or have additional risk factors.
== END 2021-05-21 09:32 | disposition home or self-care (01) ==
LOC: HO.MAMMO 09:31
PROVIDERS: PCP Nurse Practitioner Family; Visit Provider Nurse Practitioner Family
DX: Z13.820 Encounter for screening for osteoporosis (principal); Z79.52 Long term (current) use of systemic steroids; Z78.0 Asymptomatic menopausal state; M85.80 Other specified disorders of bone density and structure, unspecified site
CPT/HCPCS: 77080

== ENCOUNTER 2021-07-01 15:11 | Outpatient (REF) | payer MEDICAID, SELFPAY ==
--- NOTE | ~2021-07-01 | XR_ITS ---
EXAMINATION: BILATERAL HAND AND WRIST X-RAY CLINICAL INFORMATION: Rheumatoid arthritis. COMPARISON: Previous exam, most recent January 2019. TECHNIQUE: 4 views of each hand and wrist. FINDINGS: Right: There is periarticular osteopenia. No fracture or dislocation is seen. There is osteoarthritis at the 1st LONG-TERM joint and DIP joints of the 2nd, 3rd and 5th fingers with joint space narrowing and osteophyte formation. There is periarticular soft tissue swelling adjacent to the MCP joints. MCP joints are otherwise normal. There is bony remodeling adjacent to the distal radial ulnar joint. Left: There is periarticular osteopenia. There is osteoarthritis of the IP joints and 1st LONG-TERM joint with joint space narrowing and osteophyte formation. There is extension at the MCP joint of the thumb. There is periarticular soft tissue swelling adjacent to the 2nd and 3rd MCP joints. No erosions are seen. There is widening of the scapholunate distance. There is ulnar-minus variance degenerative change at the distal radial ulnar joint. XR/XR hand wrist RT IMPRESSION: RIGHT: Periarticular osteopenia and soft tissue swelling at the MCP joint. 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 Bony remodeling at the distal radial ulnar joint. LEFT: Periarticular osteopenia and soft tissue swelling at the 2nd and 3rd MCP joints. Osteoarthritis at the IP and 1st LONG-TERM joint. Question widened scapholunate distance.
--- NOTE | ~2021-07-01 | XR_ITS ---
EXAMINATION: BILATERAL HAND AND WRIST X-RAY CLINICAL INFORMATION: Rheumatoid arthritis. COMPARISON: Previous exam, most recent January 2019. TECHNIQUE: 4 views of each hand and wrist. FINDINGS: Right: There is periarticular osteopenia. No fracture or dislocation is seen. There is osteoarthritis at the 1st RESIDENTIAL joint and DIP joints of the 2nd, 3rd and 5th fingers with joint space narrowing and osteophyte formation. There is periarticular soft tissue swelling adjacent to the MCP joints. MCP joints are otherwise normal. There is bony remodeling adjacent to the distal radial ulnar joint. Left: There is periarticular osteopenia. There is osteoarthritis of the IP joints and 1st RESIDENTIAL joint with joint space narrowing and osteophyte formation. There is extension at the MCP joint of the thumb. There is periarticular soft tissue swelling adjacent to the 2nd and 3rd MCP joints. No erosions are seen. There is widening of the scapholunate distance. There is ulnar-minus variance degenerative change at the distal radial ulnar joint. XR/XR hand wrist LT IMPRESSION: RIGHT: Periarticular osteopenia and soft tissue swelling at the MCP joint. Osteoarthritis at the 1st RESIDENTIAL and DIP joints. Bony remodeling at the distal radial ulnar joint. LEFT: Periarticular osteopenia and soft tissue swelling at the 2nd and 3rd MCP joints. Osteoarthritis at the IP and 1st RESIDENTIAL joint. Question widened scapholunate distance.
[2021-07-01 15:21] LABS: MANUAL DIFF FLAG NO
[2021-07-01 15:39] LABS: Basophils Absolute Auto 0.1 X10*3/uL (0.0-0.2); Basophils Percent Auto 0.7 % (0-2); Eosinophils Absolute Auto 0.5 X10*3/uL (0.0-0.4); Eosinophils Percent Auto 5.3 % (0-4); Hematocrit 43.4 % (37.0-47.0); Hemoglobin 13.8 g/dl (12.0-16.0); Imm Gran Abs Auto 0.05 X10*3/uL (0.00-0.03); Imm Gran Pct Auto 0.5 % (0.0-0.4); Lymphocytes Absolute Auto 1.5 X10*3/uL (1.2-4.9); Lymphocytes Percent Auto 16.2 % (20-40); Mean Corpuscular HGB Conc 31.8 g/dl (31.0-35.0); Mean Corpuscular Hemoglobin 30.9 pg (27.0-33.0); Mean Corpuscular Volume 97.3 fL (80.0-98.0); Mean Platelet Volume 9.2 fL (9.4-12.3); Monocytes Absolute Auto 0.5 X10*3/uL (0.1-1.2); Monocytes Percent Auto 5.7 % (2-11); Neutrophils Absolute Auto 6.6 x10*3/uL (2.0-8.3); Neutrophils Percent Auto 71.6 % (45-73); Platelet Count 275 X10*3/uL (160-400); Red Blood Count 4.46 X10*6/uL (4.20-5.50); Red Cell Distribution Width 13.2 % (11.0-16.0); White Blood Count 9.2 X10*3/uL (4.8-10.8)
[2021-07-01 16:13] LABS: Alanine Aminotransferase 34 U/L (0-31); Albumin Level 4.5 g/dL (3.5-5.0); Alkaline Phosphatase 67 U/L (39-117); Anion Gap 15 (12-20); Aspartate Amino Transferase 24 U/L (5-31); Bilirubin Total 0.4 mg/dL (0.0-1.0); Blood Urea Nitrogen 13 mg/dL (9-16); C Reactive Protein 0.05 mg/dL (< or = 0.50); Calcium 10.2 mg/dL (8.4-10.2); Carbon Dioxide 28 mmol/L (22-29); Chloride 102 mmol/L (96-108); Estimated Glomerular Filt Rate > 60; Glucose Random 95 mg/dL (60-115); Sodium 140 mmol/L (135-145); Total Protein 7.5 g/dL (6.5-8.0)
[2021-07-01 16:54] LABS: Erythrocyte Sedimentation Rate 11 MM/HR (0-20)
== END 2021-07-01 15:12 | disposition home or self-care (01) ==
LOC: HO.XRAY 15:11
PROVIDERS: Visit Provider Nurse Practitioner Family
DX: M05.9 Rheumatoid arthritis with rheumatoid factor, unspecified (principal); M25.561 Pain in right knee; M25.562 Pain in left knee
CPT/HCPCS: 36415; 73110; 73130; 80053; 85025; 85652; 86140

== ENCOUNTER → 2021-07-03 09:54 | Outpatient (BNVA) | payer MEDICAID, SELFPAY | PROVIDERS: PCP Internal Medicine; Visit Provider Nurse Practitioner Family | DX: M05.9 Rheumatoid arthritis with rheumatoid factor, unspecified (principal); L40.9 Psoriasis, unspecified; K13.0 Diseases of lips; Z79.52 Long term (current) use of systemic steroids; Z79.899 Other long term (current) drug therapy | CPT/HCPCS: 99212 ==

== ENCOUNTER 2021-07-07 13:58 | Outpatient (REF) | payer MEDICAID, SELFPAY ==
--- NOTE | ~2021-07-07 | XR_ITS ---
EXAMINATION: XR BOTH KNEES AP STANDING XR RIGHT KNEE, 2 VIEWS CLINICAL INFORMATION: Right total knee arthroplasty follow-up. COMPARISON: None. TECHNIQUE: Standing AP view of both knees and lateral and sunrise views of the right knee. FINDINGS: LEFT KNEE: Mild lateral compartment joint space narrowing. No fracture or malalignment. Bones are osteopenic. RIGHT KNEE: Prosthetic components of the total knee arthroplasty are appropriately aligned without periprosthetic fracture or abnormal lucency. No component migration. No joint effusion. Small chronic osseous fragments are present just lateral to the patella. Bones are mildly osteopenic. XR/XR knee RT 2V IMPRESSION: Status post right total knee arthroplasty without evidence of complications. Alignment is appropriate. Mild lateral compartment joint space narrowing in the left knee.
--- NOTE | ~2021-07-07 | XR_ITS ---
EXAMINATION: XR BOTH KNEES AP STANDING XR RIGHT KNEE, 2 VIEWS CLINICAL INFORMATION: Right total knee arthroplasty follow-up. COMPARISON: None. TECHNIQUE: Standing AP view of both knees and lateral and sunrise views of the right knee. FINDINGS: LEFT KNEE: Mild lateral compartment joint space narrowing. No fracture or malalignment. Bones are osteopenic. RIGHT KNEE: Prosthetic components of the total knee arthroplasty are appropriately aligned without periprosthetic fracture or abnormal lucency. No component migration. No joint effusion. Small chronic osseous fragments are present just lateral to the patella. Bones are mildly osteopenic. XR/XR knee standing BI IMPRESSION: Status post right total knee arthroplasty without evidence of complications. Alignment is appropriate. Mild lateral compartment joint space narrowing in the left knee.
--- NOTE | ~2021-07-07 | XR_ITS ---
EXAMINATION: XR HIP, LEFT CLINICAL INFORMATION: Left hip pain x8 months, right knee surgery follow up. COMPARISON: None TECHNIQUE: AP and frog-leg lateral views of the left hip and AP view of the pelvis. FINDINGS: Hip joints appear relatively well-preserved without significant joint space narrowing. No erosions. There is mild to moderate osteoarthritis in the pubic symphysis and more mild osteoarthritis in the SI joints bilaterally. Degenerative spondylosis is noted in the lower lumbar spine. Bones are osteopenic. There is a 6 mm focus of calcific tendinitis at the gluteus medius insertion on the right greater trochanter. A 1.5 cm focus of calcific tendinosis is evident at the right greater trochanter. No acute soft tissue findings. XR/XR hip LT w PEL1V IMPRESSION: 1. No acute osseous abnormalities or significant osteoarthritis in the hips. 2. 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 3. Calcific tendinosis at the bilateral greater trochanters.
== END 2021-07-07 13:59 | disposition home or self-care (01) ==
LOC: HO.XRAY 13:58
PROVIDERS: PCP Internal Medicine; Visit Provider Nurse Practitioner Family
DX: M05.9 Rheumatoid arthritis with rheumatoid factor, unspecified (principal); M53.3 Sacrococcygeal disorders, not elsewhere classified; M25.552 Pain in left hip; M25.561 Pain in right knee
CPT/HCPCS: 73502; 73560; 73565

== ENCOUNTER → 2021-10-02 09:55 | Outpatient (BNVA) | payer MEDICAID, SELFPAY | PROVIDERS: PCP Internal Medicine; Visit Provider Nurse Practitioner Family | DX: M05.9 Rheumatoid arthritis with rheumatoid factor, unspecified (principal); M53.3 Sacrococcygeal disorders, not elsewhere classified; M25.552 Pain in left hip; K13.0 Diseases of lips; L40.9 Psoriasis, unspecified; Z79.52 Long term (current) use of systemic steroids; Z79.899 Other long term (current) drug therapy | CPT/HCPCS: 99212 ==

== ENCOUNTER 2021-10-09 08:46 | Outpatient (REF) | payer MEDICAID, SELFPAY ==
[2021-10-09 08:58] LABS: MANUAL DIFF FLAG NO
[2021-10-09 09:32] LABS: Basophils Absolute Auto 0.1 X10*3/uL (0.0-0.2); Basophils Percent Auto 1.2 % (0-2); Eosinophils Absolute Auto 0.5 X10*3/uL (0.0-0.4); Eosinophils Percent Auto 8.3 % (0-4); Hematocrit 41.3 % (37.0-47.0); Hemoglobin 13.2 g/dl (12.0-16.0); Imm Gran Abs Auto 0.03 X10*3/uL (0.00-0.03); Imm Gran Pct Auto 0.5 % (0.0-0.4); Lymphocytes Percent Auto 34.5 % (20-40); Mean Corpuscular Hemoglobin 32.1 pg (27.0-33.0); Mean Corpuscular Volume 100.5 fL (80.0-98.0); Mean Platelet Volume 9.9 fL (9.4-12.3); Monocytes Absolute Auto 0.5 X10*3/uL (0.1-1.2); Monocytes Percent Auto 8.4 % (2-11); Neutrophils Absolute Auto 2.8 x10*3/uL (2.0-8.3); Neutrophils Percent Auto 47.1 % (45-73); Platelet Count 226 X10*3/uL (160-400); Red Blood Count 4.11 X10*6/uL (4.20-5.50); Red Cell Distribution Width 12.2 % (11.0-16.0); White Blood Count 5.9 X10*3/uL (4.8-10.8)
[2021-10-09 09:57] LABS: Alanine Aminotransferase 28 U/L (0-31); Alkaline Phosphatase 64 U/L (39-117); Anion Gap 13 (12-20); Aspartate Amino Transferase 20 U/L (5-31); Bilirubin Total 0.6 mg/dL (0.0-1.0); Blood Urea Nitrogen 13 mg/dL (9-16); C Reactive Protein 0.03 mg/dL (< or = 0.50); Calcium 9.2 mg/dL (8.4-10.2); Carbon Dioxide 28 mmol/L (22-29); Chloride 104 mmol/L (96-108); Estimated Glomerular Filt Rate > 60; Glucose Random 139 mg/dL (60-115); Potassium 4.4 mmol/L (3.3-5.1); Sodium 141 mmol/L (135-145); Total Protein 6.5 g/dL (6.5-8.0)
[2021-10-09 10:11] LABS: Erythrocyte Sedimentation Rate 2 MM/HR (0-20)
== END 2021-10-09 08:47 | disposition home or self-care (01) ==
LOC: HO.LAB 08:46
PROVIDERS: PCP Internal Medicine; Visit Provider Nurse Practitioner Family
DX: M05.9 Rheumatoid arthritis with rheumatoid factor, unspecified (principal)
CPT/HCPCS: 36415; 80053; 85025; 85652; 86140

== ENCOUNTER → 2021-11-10 13:36 | Outpatient (BNVA) | payer MEDICAID, SELFPAY | PROVIDERS: PCP Internal Medicine; Visit Provider Internal Medicine | DX: M46.1 Sacroiliitis, not elsewhere classified (principal); M47.816 Spondylosis without myelopathy or radiculopathy, lumbar region; M70.60 Trochanteric bursitis, unspecified hip | CPT/HCPCS: 99202 ==

== ENCOUNTER → 2021-12-09 13:20 | Outpatient (BNVA) | payer MEDICAID, SELFPAY | PROVIDERS: PCP Internal Medicine; Visit Provider Nurse Practitioner Family | DX: M05.9 Rheumatoid arthritis with rheumatoid factor, unspecified (principal); M53.3 Sacrococcygeal disorders, not elsewhere classified; K13.0 Diseases of lips; L40.9 Psoriasis, unspecified; Z79.52 Long term (current) use of systemic steroids; Z79.899 Other long term (current) drug therapy | CPT/HCPCS: 99212 ==

== ENCOUNTER 2021-12-10 06:22 | Outpatient (REF) | payer MEDICAID, SELFPAY ==
--- NOTE | ~2021-12-10 | FL_ITS ---
EXAMINATION: XR FLUOROSCOPY WITH IMAGES CLINICAL INFORMATION: Sacroiliitis. COMPARISON: None. TECHNIQUE: Fluoroscopy performed by Sada Cope. Fluoroscopy time: 0.2 minutes. Cumulative Dose: 8.53 mGy. DAP: 0.953 Gy-cm2. Images: 2. FINDINGS: 2 digital images obtained reveal needle positioned in the left SI joint. No gross bony abnormality. FL/FL guidance in treatment room IMPRESSION: Fluoroscopy guidance was provided to the referrer for pain management.
== END 2021-12-10 06:23 | disposition home or self-care (01) ==
LOC: HO.RADIR 06:22
PROVIDERS: Visit Provider Internal Medicine
DX: M46.1 Sacroiliitis, not elsewhere classified (principal)
CPT/HCPCS: 27096; J1020; J1040; Q9965

== ENCOUNTER 2022-01-27 14:41 | Outpatient (REF) | payer MEDICAID, SELFPAY ==
[2022-01-27 14:52] LABS: MANUAL DIFF FLAG NO
[2022-01-27 15:06] LABS: Basophils Absolute Auto 0.1 X10*3/uL (0.0-0.2); Basophils Percent Auto 0.6 % (0-2); Eosinophils Absolute Auto 0.4 X10*3/uL (0.0-0.4); Eosinophils Percent Auto 3.6 % (0-4); Hematocrit 43.2 % (37.0-47.0); Hemoglobin 13.7 g/dl (12.0-16.0); Imm Gran Abs Auto 0.05 X10*3/uL (0.00-0.03); Imm Gran Pct Auto 0.5 % (0.0-0.4); Lymphocytes Absolute Auto 1.2 X10*3/uL (1.2-4.9); Lymphocytes Percent Auto 10.8 % (20-40); Mean Corpuscular HGB Conc 31.7 g/dl (31.0-35.0); Mean Corpuscular Hemoglobin 31.2 pg (27.0-33.0); Mean Corpuscular Volume 98.4 fL (80.0-98.0); Mean Platelet Volume 9.4 fL (9.4-12.3); Monocytes Absolute Auto 0.5 X10*3/uL (0.1-1.2); Monocytes Percent Auto 4.7 % (2-11); Neutrophils Absolute Auto 8.5 x10*3/uL (2.0-8.3); Neutrophils Percent Auto 79.8 % (45-73); Platelet Count 278 X10*3/uL (160-400); Red Blood Count 4.39 X10*6/uL (4.20-5.50); Red Cell Distribution Width 11.9 % (11.0-16.0); White Blood Count 10.6 X10*3/uL (4.8-10.8)
[2022-01-27 15:32] LABS: Alanine Aminotransferase 25 U/L (0-31); Aspartate Amino Transferase 21 U/L (5-31); C Reactive Protein 0.22 mg/dL (< or = 0.50); Estimated Glomerular Filt Rate > 60
[2022-01-27 15:49] LABS: Erythrocyte Sedimentation Rate 11 MM/HR (0-20)
== END 2022-01-27 14:42 | disposition home or self-care (01) ==
LOC: HO.LAB 14:41
PROVIDERS: PCP Internal Medicine; Visit Provider Nurse Practitioner Family
DX: M05.9 Rheumatoid arthritis with rheumatoid factor, unspecified (principal); Z79.899 Other long term (current) drug therapy
CPT/HCPCS: 36415; 82565; 84450; 84460; 85025; 85652; 86140

== ENCOUNTER → 2022-04-08 08:27 | Outpatient (BNVA) | payer MEDICAID, SELFPAY | PROVIDERS: PCP Internal Medicine; Visit Provider Nurse Practitioner Family | DX: M05.9 Rheumatoid arthritis with rheumatoid factor, unspecified (principal); M53.3 Sacrococcygeal disorders, not elsewhere classified; K13.0 Diseases of lips; L40.9 Psoriasis, unspecified; Z79.52 Long term (current) use of systemic steroids; Z79.899 Other long term (current) drug therapy | CPT/HCPCS: 99212 ==

== ENCOUNTER 2022-06-17 14:18 | Outpatient (REF) | payer MEDICAID, SELFPAY ==
--- NOTE | ~2022-06-17 | XR_ITS ---
EXAMINATION: XR WRIST/HAND, RIGHT CLINICAL INFORMATION: Pain in right wrist COMPARISON: None available. TECHNIQUE: PA, lateral, and oblique views of the right wrist and PA, lateral, and oblique views of the right hand FINDINGS: RIGHT WRIST: There is loss of first carpometacarpal joint space with mild periapical spurring. Rest of the carpometacarpal joint space are normal. The intercarpal joint spaces are normal. RIGHT HAND: There is loss of PIP and DIP joints spaces of all digits with periarticular spurring in the second third digits and mild flexion deformities of second second, third and fifth digit. No visible acute fracture, dislocation or lytic process seen. The soft tissues are normal. XR/XR hand wrist RT IMPRESSION: 1. Degenerative arthritic changes first carpometacarpal joint. 2. Degenerative arthritic changes PIP and DIP joints of all digits. No visible acute fracture, dislocation or subluxation seen.
[2022-06-17 14:30] LABS: MANUAL DIFF FLAG NO
[2022-06-17 14:42] LABS: Basophils Absolute Auto 0.1 X10*3/uL (0.0-0.2); Eosinophils Absolute Auto 0.3 X10*3/uL (0.0-0.4); Eosinophils Percent Auto 5.3 % (0-4); Hemoglobin 13.6 g/dl (12.0-16.0); Imm Gran Abs Auto 0.03 X10*3/uL (0.00-0.03); Imm Gran Pct Auto 0.6 % (0.0-0.4); Lymphocytes Absolute Auto 1.2 X10*3/uL (1.2-4.9); Lymphocytes Percent Auto 24.6 % (20-40); Mean Corpuscular HGB Conc 31.6 g/dl (31.0-35.0); Mean Corpuscular Hemoglobin 30.9 pg (27.0-33.0); Mean Corpuscular Volume 97.7 fL (80.0-98.0); Mean Platelet Volume 9.2 fL (9.4-12.3); Monocytes Absolute Auto 0.4 X10*3/uL (0.1-1.2); Monocytes Percent Auto 8.1 % (2-11); Neutrophils Percent Auto 60.4 % (45-73); Platelet Count 254 X10*3/uL (160-400); Red Cell Distribution Width 12.6 % (11.0-16.0); White Blood Count 4.9 X10*3/uL (4.8-10.8)
[2022-06-17 15:21] LABS: Erythrocyte Sedimentation Rate 13 MM/HR (0-20)
[2022-06-17 16:18] LABS: Alanine Aminotransferase 23 U/L (0-31); Albumin Level 4.1 g/dL (3.5-5.0); Alkaline Phosphatase 65 U/L (39-117); Anion Gap 16 (12-20); Aspartate Amino Transferase 19 U/L (5-31); Bilirubin Total 0.3 mg/dL (0.0-1.0); Blood Urea Nitrogen 15 mg/dL (9-16); C Reactive Protein 0.35 mg/dL (< or = 0.50); Calcium 9.7 mg/dL (8.4-10.2); Carbon Dioxide 31 mmol/L (22-29); Chloride 102 mmol/L (96-108); Estimated Glomerular Filt Rate > 60; Glucose Random 91 mg/dL (60-115); Potassium 5.1 mmol/L (3.3-5.1); Sodium 144 mmol/L (135-145); Total Protein 6.9 g/dL (6.5-8.0)
== END 2022-06-17 14:19 | disposition home or self-care (01) ==
LOC: HO.LAB 14:18
PROVIDERS: PCP Internal Medicine; Visit Provider Nurse Practitioner Family
DX: M05.9 Rheumatoid arthritis with rheumatoid factor, unspecified (principal); M25.531 Pain in right wrist; Z79.899 Other long term (current) drug therapy
CPT/HCPCS: 36415; 73110; 73130; 80053; 85025; 85652; 86140

== ENCOUNTER → 2022-08-28 09:15 | Outpatient (BNVA) | payer MEDICAID, SELFPAY | PROVIDERS: PCP Internal Medicine; Visit Provider Nurse Practitioner Family | DX: M05.9 Rheumatoid arthritis with rheumatoid factor, unspecified (principal); M85.80 Other specified disorders of bone density and structure, unspecified site; R07.81 Pleurodynia; K13.0 Diseases of lips; L40.9 Psoriasis, unspecified; Z79.899 Other long term (current) drug therapy | CPT/HCPCS: 99212 ==

== ENCOUNTER 2022-11-20 15:15 | Outpatient (REF) | payer MEDICAID, SELFPAY ==
[2022-11-20 15:22] LABS: MANUAL DIFF FLAG NO
[2022-11-20 16:15] LABS: Basophils Absolute Auto 0.1 X10*3/uL (0.0-0.2); Basophils Percent Auto 1.2 % (0-2); Eosinophils Absolute Auto 0.4 X10*3/uL (0.0-0.4); Eosinophils Percent Auto 5.6 % (0-4); Hematocrit 43.9 % (37.0-47.0); Hemoglobin 14.2 g/dl (12.0-16.0); Imm Gran Abs Auto 0.03 X10*3/uL (0.00-0.03); Imm Gran Pct Auto 0.4 % (0.0-0.4); Lymphocytes Absolute Auto 1.8 X10*3/uL (1.2-4.9); Lymphocytes Percent Auto 23.7 % (20-40); Mean Corpuscular HGB Conc 32.3 g/dl (31.0-35.0); Mean Corpuscular Hemoglobin 31.9 pg (27.0-33.0); Mean Corpuscular Volume 98.7 fL (80.0-98.0); Mean Platelet Volume 10.2 fL (9.4-12.3); Monocytes Absolute Auto 0.6 X10*3/uL (0.1-1.2); Monocytes Percent Auto 8.7 % (2-11); Neutrophils Absolute Auto 4.5 x10*3/uL (2.0-8.3); Neutrophils Percent Auto 60.4 % (45-73); Platelet Count 233 X10*3/uL (160-400); Red Blood Count 4.45 X10*6/uL (4.20-5.50); Red Cell Distribution Width 12.3 % (11.0-16.0); White Blood Count 7.4 X10*3/uL (4.8-10.8)
[2022-11-20 17:00] LABS: Erythrocyte Sedimentation Rate 2 MM/HR (0-20)
[2022-11-20 17:01] LABS: Alanine Aminotransferase 29 U/L (0-31); Albumin Level 4.5 g/dL (3.5-5.0); Alkaline Phosphatase 62 U/L (39-117); Anion Gap 12 (12-20); Aspartate Amino Transferase 25 U/L (5-31); Bilirubin Total 0.5 mg/dL (0.0-1.0); Blood Urea Nitrogen 14 mg/dL (9-16); C Reactive Protein < 0.04 mg/dL (< or = 0.50); Calcium 10.8 mg/dL (8.4-10.2); Carbon Dioxide 30 mmol/L (22-29); Chloride 103 mmol/L (96-108); Estimated Glomerular Filt Rate > 60; Glucose Random 89 mg/dL (60-115); Potassium 4.4 mmol/L (3.3-5.1); Sodium 141 mmol/L (135-145); Total Protein 7.5 g/dL (6.5-8.0)
== END 2022-11-20 15:16 | disposition home or self-care (01) ==
LOC: HO.LAB 15:15
PROVIDERS: Visit Provider Nurse Practitioner Family
DX: M05.9 Rheumatoid arthritis with rheumatoid factor, unspecified (principal)
CPT/HCPCS: 36415; 80053; 85025; 85652; 86140

== ENCOUNTER 2022-11-27 13:03 | Outpatient (AMB) | payer MEDICAID, SELFPAY ==
[2022-11-27 13:09] VITALS: BP 152/80; PULSE 57; TEMP 36.4; O2SAT 97; BMI 32.8
--- NOTE | 2022-11-27 13:09 | MHC.OFFVIS ---
Intake Vital Signs 11/27/22 13:09 Height 5 ft 7 in Weight 209 lb 7.026 oz BMI 32.8 BP 152/80 H Blood Pressure Location Rt brachial Position Sitting Pulse 57 Pulse Source Pulse Oximeter Temp 97.5 F Temp Source Skin Pulse Oximetry (%) 97 Intake Visit Reasons: rheumatoid arthritis Intake Note: constant shoulder pain Stage Hand Required: No Accompanied by: Self / Same As Patient Allergies amoxicillin [Augmentin] Allergy (Severe, Verified 11/27/22 13:11) Anaphylaxis clavulanic acid [Augmentin] Allergy (Severe, Verified 11/27/22 13:11) Anaphylaxis NSAIDS (Non-Steroidal Anti-Inflamma Allergy (Severe, Verified 11/27/22 13:11) Anaphylaxis penicillin V Allergy (Severe, Verified 11/27/22 13:11) Rash hydroxychloroquine [Plaquenil] Allergy (Intermediate, Verified 11/27/22 13:11) rash sarilumab [From Kevzara] Allergy (Verified 11/27/22 13:11) injection site reaction Medication List - Last Reconciled 11/27/22 by Camilo Butts MD acetaminophen 650 mg (2 x 325 mg) PO Q6H PRN 30 days calcium carbonate (Calcium) 600 mg PO DAILY cholecalciferol (vitamin D3) (Vitamin D3) 10 mcg PO DAILY folic acid 1 mg PO DAILY methotrexate sodium 25 mg (10 x 2.5 mg) PO QWEEK multivitamin 1 tab PO DAILY prednisone 4 mg (4 x 1 mg) PO DAILY sertraline 75 mg PO DAILY tocilizumab (Actemra ACTPen) 162 mg (0.9 mL) subcut QWEEK walker Folding Front wheeled walker HPI HPI Comments History of Present Illness Details This is a 62-year-old female with seropositive RA who returns for follow-up. She was last evaluated by Penelope Parikh 08/2022. This is her 1st visit with me. She is on methotrexate 10 tabs once weekly and Actemra once weekly. She also takes prednisone 4 mg 6 days a week and 3 mg 1 day a week. She states that she continues to have diffuse pain especially in her shoulders intermittent pain in her hands sometimes the pain is in the wrists and sometimes it in the DI DIPs. Over the last 2-3 months she has been getting episodes where her right hand fingers lock up. She has a rash on both feet that she believes came from doing pedicure. She states that when evaluated by Dr. Reese 2 years ago she was told that she will need both shoulders replaced as well as a right knee replacement. She had a right knee replacement then patient has been putting off doing shoulder replacement. She denies any cough or shortness of breath. Over the last 8 months she has been having a lesion on the aspect of her left nostril. She worries about skin malignancy. [facility] Medical History (Updated 11/27/22 @ 14:14 by Camilo Butts MD) COVID-19 vaccine series completed Depression Elevated blood pressure reading Hiatal hernia Osteoarthritis of right knee Post-operative nausea and vomiting Psoriasis Surgical History H/O colonoscopy Hx of appendectomy Hx of right knee surgery Hx of tubal ligation Status post right knee replacement Family History Mother Diabetes Father Alzheimer disease Social History Household Members: Spouse Housing: House Are you a primary nonfarm animal caretaker to a significant other at home: No Do you presently have visiting nurse or other home services: No Alcohol intake: current Alcohol intake frequency: 0-2 drinks per day Patient Tobacco Use Status: Former Tobacco user Quit Date: 30 years ago Tobacco use type: Cigarette Cigarettes Per Day: 15 Years Smoked: 6 service: No Current occupational status: disabled Review of Systems Card Denies dyspnea Resp Denies cough and Denies dyspnea Musc Reports arthralgias, Reports limited range of motion and Reports stiffness Skin/Breast Reports skin ulcer Physical Exam Vital Signs: Last Vital Signs Temp 97.5 F 11/27/22 13:09 Pulse 57 11/27/22 13:09 BP 152/80 H 11/27/22 13:09 Pulse Ox 97 11/27/22 13:09 BMI result Body Mass Index 32.8 Const General: cooperative, healthy appearing and comfortable Nutritional Appearance: obese Orientation/consciousness: patient oriented x3 Limitations: no limitations HEENT Head: Yes normocephalic and Yes atraumatic Mouth: moist mucous membranes Resp Effort & Inspection: normal respiratory effort and able to speak in complete sentences Auscultation: clear to auscultation bilaterally Cardio Rate: regular rate Skin Other: A small circular ulcerating lesion on the outside of her left nostril, measuring around 1 mm Neuro General: patient oriented x3 Extrem Other: Osteoarthritic changes of both hands without any significantly swollen joints Few tender MCPs and PIP is bilaterally without swelling Few tender Heberden's nodes bilaterally Bilateral limited shoulder abduction Right foot is flat and she has fibular deviation of her right foot. Office Procedures Joint Injection/Drain Joint Injection/Drain Primary Site: left shoulder Prep: site was prepped using sterile technique and ethochloride spray was applied Injected: 40 mg of, Kenalog and other (2 mL of 1% lidocaine) Approach Used: posterolateral Procedure: The patient tolerated the procedure well Coding Details: With the patient's consent the left shoulder was prepped with ChloraPrep and alcohol. Under a topical ethyl chloride spray the left subacromial space was injected with 40 mg of triamcinolone and 2 cc of 1% lidocaine. The patient tolerated the procedure without any acute adverse effects. - Large joint Procedure code (CPT) selection complete Assessment & Plan Assessment & Plan (1) Seropositive rheumatoid arthritis: Comment: ++RF++CCP Dx in 2010. Humira- injection site reaction Enbrel- injection site reaction- prior to 2013 Orencia- 02/2014-07/2020 discontinued due to active synovitis 09/23-02/2021 Kevzara - 09/2020 -injection site reaction and was started back on Orencia Actemra - 02/2021- present MTX for many years Code(s): M05.9 - Rheumatoid arthritis with rheumatoid factor, unspecified Plan: This is a 62-year-old female with seropositive RA who presents for follow-up. Her RA is well controlled on current management, Actemra weekly, methotrexate 25 mg weekly and prednisone 4 mg 6 days a week and 3 mg 1 day a week. Continue current management, advised patient to try to take prednisone 3 mg 2 days a week for 1 month then 3 days a week. Labs before next visit in 3 months (2) Osteopenia with high risk of fracture: Comment: DEXA 05/2021 osteopenia T-score of -2.0 femoral neck, major osteoporotic fracture risk 50.5%, hip fracture risk 5.4%. Reinforced recommendation to start Alendronate 12/2021, 04/2022, 08/2022 Code(s): M85.80 - Other specified disorders of bone density and structure, unspecified site Plan: Patient on long-term steroids. DEXA January 2019 normal. Repeat DEXA 05/2021 osteopenia T-score of -2.0 femoral neck, major osteoporotic fracture risk 50.5%, hip fracture risk 5.4%. Need for antiresorptive agents was discussed before. Patient declined to start Fosamax. Patient did not want to discuss it today. 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 Will monitor patient? for side effects with frequent lab work. Advised patient to take folic acid daily to prevent complications of methotrexate. (4) Osteoarthritis of shoulders, bilateral: Code(s): M19.011 - Primary osteoarthritis, right shoulder; M19.012 - Primary osteoarthritis, left shoulder Qualifiers: Osteoarthritis type: other secondary Qualified Code(s): M19.211 - Secondary osteoarthritis, right shoulder; M19.212 - Secondary osteoarthritis, left shoulder Plan: With patient's consent, Left shoulder injected with Kenalog today. Inform patient that if she gets significant improvement in a couple of weeks, she can call our office and we can schedule injection for the right shoulder (5) Tinea pedis: Code(s): B35.3 - Tinea pedis Plan: Prescribed clotrimazole/betamethasone cream. The rash looks like a fungal infection to me, psoriasis is another possibility (6) Skin ulcer: Code(s): L98.499 - Non-pressure chronic ulcer of skin of other sites with unspecified severity Plan: Small circular ulcer on the outer aspect of her left nostril, present for the last 8 months. Advised patient to follow-up with health information clerk for evaluation to rule out skin cancer (7) Osteoarthritis of hands, bilateral: Code(s): M19.041 - Primary osteoarthritis, right hand; M19.042 - Primary osteoarthritis, left hand Qualifiers: Osteoarthritis type: primary Qualified Code(s): M19.041 - Primary osteoarthritis, right hand; M19.042 - Primary osteoarthritis, left hand Plan: Referred to occupational therapy (8) Trigger finger, right middle finger: Code(s): M65.331 - Trigger finger, right middle finger Plan: Referred to occupational therapy. Can consider a steroid injection next visit if no improvement with occupational therapy Plan I spent 61 minutes reviewing patient's chart, evaluating patient, ordering diagnostic workup, counseling patient and documenting in the chart Orders: Orders OT Evaluation and Treatment Today M19.041 - Primary osteoarthritis, right hand, M19.042 - Primary osteoarthritis, left hand, M65.311 - Trigger thumb, right thumb, M65.321 - Trigger finger, right index finger, M65.331 - Trigger finger, right middle finger, M65.341 - Trigger finger, right ring finger, M65.351 - Trigger finger, right little finger Complete Blood Count Auto Diff 3 Months Z79.899 - Other 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 Panel 3 Months Z79.899 - Other snf (current) drug therapy C Reactive Protein 3 Months Z79.899 - Other snf (current) drug therapy Erythrocyte Sedimentation Rate 3 Months Z79.899 - Other snf (current) drug therapy Hepatitis A,B,C Profile 3 Months Z11.59 - Encounter for screening for other viral diseases T Spot TB 3 Months Z11.7 - Encounter for testing for latent tuberculosis infection AMB Joint Injection/Aspiration Today M19.011 - Primary osteoarthritis, right shoulder, M19.012 - Primary osteoarthritis, left shoulder Medications: New clotrimazole-betamethasone 1-0.05 % for 3 weeks 1 appl topical BID 15 grams 0RF Coding Level of Care Code Est Pt Level 5 (24426) Diagnoses Seropositive rheumatoid arthritis M05.9 Osteopenia with high risk of fracture M85.80 roasterman methotrexate user Z79.899 Osteoarthritis of shoulders, bilateral M19.211; M19.212 Osteoarthritis type: other secondary Tinea pedis B35.3 Skin ulcer L98.499 Osteoarthritis of hands, bilateral M19.041; M19.042 Osteoarthritis type: primary Trigger finger, right middle finger M65.331 CPT Codes Coding - 09019 Large joint: 63342 - Large joint ([id number])
== END 2022-11-27 13:46 | disposition home or self-care (01) ==
PROVIDERS: PCP Internal Medicine; Visit Provider Student in an Organized Health Care Education/Training Program
DX: M05.79 Rheumatoid arthritis with rheumatoid factor of multiple sites without organ or systems involvement (principal); M85.80 Other specified disorders of bone density and structure, unspecified site; Z79.899 Other long term (current) drug therapy; M19.211 Secondary osteoarthritis, right shoulder; M19.212 Secondary osteoarthritis, left shoulder; B35.3 Tinea pedis; L98.499 Non-pressure chronic ulcer of skin of other sites with unspecified severity; M19.041 Primary osteoarthritis, right hand; M19.042 Primary osteoarthritis, left hand; M65.331 Trigger finger, right middle finger
CPT/HCPCS: 20610; 99215

== ENCOUNTER → 2022-11-27 13:03 | Outpatient (BNVA) | payer MEDICAID, SELFPAY | PROVIDERS: PCP Internal Medicine; Visit Provider Student in an Organized Health Care Education/Training Program | DX: M05.9 Rheumatoid arthritis with rheumatoid factor, unspecified (principal); M19.212 Secondary osteoarthritis, left shoulder; M19.211 Secondary osteoarthritis, right shoulder; M85.80 Other specified disorders of bone density and structure, unspecified site; B35.3 Tinea pedis; L98.499 Non-pressure chronic ulcer of skin of other sites with unspecified severity; M19.041 Primary osteoarthritis, right hand; M19.042 Primary osteoarthritis, left hand; M65.331 Trigger finger, right middle finger; Z79.631 Long term (current) use of antimetabolite agent | CPT/HCPCS: 20610; 99212; J3301 ==

== ENCOUNTER 2023-02-05 10:19 | Outpatient (REF) | payer MEDICAID, SELFPAY ==
[2023-02-05 10:31] LABS: MANUAL DIFF FLAG NO
[2023-02-05 10:56] LABS: Basophils Absolute Auto 0.1 X10*3/uL (0.0-0.2); Basophils Percent Auto 1.1 % (0-2); Eosinophils Absolute Auto 0.4 X10*3/uL (0.0-0.4); Eosinophils Percent Auto 7.5 % (0-4); Hematocrit 43.7 % (37.0-47.0); Hemoglobin 14.4 g/dl (12.0-16.0); Imm Gran Abs Auto 0.03 X10*3/uL (0.00-0.03); Imm Gran Pct Auto 0.5 % (0.0-0.4); Lymphocytes Absolute Auto 1.5 X10*3/uL (1.2-4.9); Lymphocytes Percent Auto 26.7 % (20-40); Mean Corpuscular Hemoglobin 32.9 pg (27.0-33.0); Mean Corpuscular Volume 99.8 fL (80.0-98.0); Mean Platelet Volume 10.1 fL (9.4-12.3); Monocytes Absolute Auto 0.4 X10*3/uL (0.1-1.2); Monocytes Percent Auto 7.9 % (2-11); Neutrophils Absolute Auto 3.1 x10*3/uL (2.0-8.3); Neutrophils Percent Auto 56.3 % (45-73); Platelet Count 220 X10*3/uL (160-400); Red Blood Count 4.38 X10*6/uL (4.20-5.50); Red Cell Distribution Width 11.9 % (11.0-16.0); White Blood Count 5.5 X10*3/uL (4.8-10.8)
[2023-02-05 11:25] LABS: Alanine Aminotransferase 27 U/L (0-31); Albumin Level 4.1 g/dL (3.5-5.0); Alkaline Phosphatase 56 U/L (39-117); Anion Gap 11 (12-20); Aspartate Amino Transferase 25 U/L (5-31); Bilirubin Total 0.5 mg/dL (0.0-1.0); Blood Urea Nitrogen 13 mg/dL (9-16); C Reactive Protein < 0.10 mg/dL (< or = 0.50); Calcium 9.9 mg/dL (8.4-10.2); Carbon Dioxide 33 mmol/L (22-29); Chloride 101 mmol/L (96-108); Estimated Glomerular Filt Rate > 60; Glucose Random 127 mg/dL (60-115); Potassium 4.7 mmol/L (3.3-5.1); Sodium 140 mmol/L (135-145); Total Protein 6.9 g/dL (6.5-8.0)
[2023-02-05 11:40] LABS: Erythrocyte Sedimentation Rate 2 MM/HR (0-20)
[2023-02-07 18:18] LABS: TS Negative Control Passed; TS Panel A 0; TS Panel B 0; TS Positive Control Passed; TSpotTB Negative (Negative)
[2023-02-08 04:57] LABS: HBc Num1 0.08 S/CO (0.00-0.79); HBsAGNum1 0.43 S/CO (0.00-0.99); Hepatitis B Core Antibody Nonreactive (Nonreactive); Hepatitis B Surface Antigen Negative (Negative); ~HepC Num1 0.08 S/CO (0.00-0.79); ~Hepatitis A Antibody IgM Nonreactive (Nonreactive); ~Hepatitis B Surface Antibody NONREACTIVE (Nonreactive); ~Hepatitis C Antibody Nonreactive (Nonreactive)
== END 2023-02-05 10:20 | disposition home or self-care (01) ==
LOC: HO.LAB 10:19
PROVIDERS: PCP Internal Medicine; Visit Provider Student in an Organized Health Care Education/Training Program
DX: Z79.899 Other long term (current) drug therapy (principal); Z11.59 Encounter for screening for other viral diseases; Z11.7 Encounter for testing for latent tuberculosis infection
CPT/HCPCS: 36415; 80053; 85025; 85652; 86140; 86481; 86704; 86706; 86709; 86803; 87340

== ENCOUNTER 2023-02-09 09:17 | Outpatient (AMB) | payer MEDICAID, SELFPAY ==
[2023-02-09 09:28] VITALS: BP 140/86; PULSE 65; TEMP 36.4; O2SAT 96; BMI 33.4
--- NOTE | 2023-02-09 09:28 | MHC.OFFVIS ---
Intake Vital Signs 02/09/23 09:28 Height 5 ft 7 in Weight 213 lb 2.992 oz BMI 33.4 BP 140/86 H Blood Pressure Location Rt brachial Position Sitting Pulse 65 Pulse Source Pulse Oximeter Temp 97.5 F Temp Source Skin Pulse Oximetry (%) 96 Intake Visit Reasons: RA Intake Note: Pt last seen 11/27/22, presents today for follow up and test results. She is currently on Actemra weekly, methotrexate 25 mg weekly and prednisone 4 mg 6 days a week and 3 mg 1 day a week. Has not scheduled OT yet, on 02/02 pt was called and voicemail was left advising to call for OT appt, number provided. Surgical Manager Required: No Accompanied by: Self / Same As Patient Allergies amoxicillin [Augmentin] Allergy (Severe, Verified 02/09/23 09:31) Anaphylaxis clavulanic acid [Augmentin] Allergy (Severe, Verified 02/09/23 09:31) Anaphylaxis NSAIDS (Non-Steroidal Anti-Inflamma Allergy (Severe, Verified 02/09/23 09:31) Anaphylaxis penicillin V Allergy (Severe, Verified 02/09/23 09:31) Rash hydroxychloroquine [Plaquenil] Allergy (Intermediate, Verified 02/09/23 09:31) rash sarilumab [From Kevzara] Allergy (Verified 02/09/23 09:31) injection site reaction Medication List - Last Reconciled 02/09/23 by Camilo Butts MD acetaminophen 650 mg (2 x 325 mg) PO Q6H PRN 30 days calcium carbonate (Calcium) 600 mg PO DAILY cholecalciferol (vitamin D3) (Vitamin D3) 10 mcg PO DAILY clotrimazole-betamethasone 1-0.05 % 1 appl topical BID folic acid 1 mg PO DAILY methotrexate sodium 25 mg (10 x 2.5 mg) PO QWEEK multivitamin 1 tab PO DAILY prednisone 4 mg (4 x 1 mg) PO DAILY sertraline 75 mg PO DAILY tocilizumab (Actemra ACTPen) 162 mg (0.9 mL) subcut QWEEK walker Folding Front wheeled walker HPI HPI Comments History of Present Illness Details This is a 62-year-old female with seropositive RA who returns for follow-up. She is on methotrexate 10 tabs once weekly and Actemra once weekly. She currently takes prednisone 4 mg daily. States that she feels about the same as last visit. States that the left shoulder injection helped for at least 1 month. She did not go to occupational therapy for her right hand trigger finger as it does not bother her too much. [facility] Medical History Depression Elevated blood pressure reading Osteoarthritis of right knee Post-operative nausea and vomiting Hiatal hernia COVID-19 vaccine series completed Psoriasis Surgical History Status post right knee replacement H/O colonoscopy Hx of appendectomy Hx of right knee surgery Hx of tubal ligation Family History Mother Diabetes Father Alzheimer disease Social History Household Members: Spouse Housing: House Are you a primary inpatient care manager rn to a significant other at home: No Do you presently have visiting nurse or other home services: No Alcohol intake: current Alcohol intake frequency: 0-2 drinks per day Patient Tobacco Use Status: Former Tobacco user Quit Date: 30 years ago Tobacco use type: Cigarette Cigarettes Per Day: 15 Years Smoked: 6 service: No Current occupational status: disabled Review of Systems Musc Reports arthralgias, Reports limited range of motion and Reports stiffness Physical Exam Vital Signs: Last Vital Signs Temp 97.5 F 02/09/23 09:28 Pulse 65 02/09/23 09:28 BP 140/86 H 02/09/23 09:28 Pulse Ox 96 02/09/23 09:28 BMI result Body Mass Index 33.4 Const General: cooperative, healthy appearing and comfortable Nutritional Appearance: obese Orientation/consciousness: patient oriented x3 Limitations: no limitations HEENT Head: Yes normocephalic and Yes atraumatic Mouth: moist mucous membranes Resp Effort & Inspection: normal respiratory effort and able to speak in complete sentences Auscultation: clear to auscultation bilaterally Cardio Rate: regular rate Neuro General: patient oriented x3 Extrem Other: Osteoarthritic changes of both hands without any significantly swollen joints Few tender MCPs and PIP is bilaterally without swelling Few tender Heberden's nodes bilaterally Bilateral limited shoulder abduction Right foot is flat and she has fibular deviation of her right foot. Results Reviewed Results Reviewed: Laboratory Tests Date of Service: 06/17/22 Procedure(s): XR hand wrist RT Accession Number(s): [id number] EXAMINATION: XR WRIST/HAND, RIGHT CLINICAL INFORMATION: Pain in right wrist? COMPARISON: None available.? TECHNIQUE: PA, lateral, and oblique views of the right wrist and PA, lateral, and oblique views of the right hand FINDINGS: RIGHT WRIST: There is loss of first carpometacarpal joint space with mild periapical spurring. Rest of the carpometacarpal joint space are normal. The intercarpal joint spaces are normal.? RIGHT HAND: There is loss of PIP and DIP joints spaces of all digits with periarticular spurring in the second third digits and mild flexion deformities of second second, third and fifth digit. No visible acute fracture, dislocation or lytic process seen. The soft tissues are normal.? XR/XR hand wrist RT IMPRESSION: 1.? Degenerative arthritic changes first carpometacarpal joint. 2.? Degenerative arthritic changes PIP and DIP joints of all digits. No visible acute fracture, dislocation or subluxation seen. ? 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 COMPARISON: Previous BD dated 01/24/2019 and baseline BD dated 04/20/2011. TECHNIQUE: Using a [employer] DXA System (software version: 13.1) manufactured by [employer], dual-energy x-ray absorptiometry was performed of the lumbar spine and left hip. The images are of good technical quality. Summary results are attached. FINDINGS: AP SPINE L1-L3 (excluding L4): The data of L1-L4 has been changed to exclude the L4 vertebral body, because degenerative changes at this level may cause overestimation of lumbar spine density. Current: BMD 0.993 g/cm2, Z-score -1.1, T-score -1.5, osteopenia, 5.3% decrease from previous, 12.6% decrease from baseline (<5% change is not significant). Prior: BMD 1.049 g/cm2. Baseline: BMD 1.136 g/cm2. LEFT FEMUR, NECK: Current: BMD 0.766 g/cm2, Z-score -1.3, T-score -2.0, osteopenia. Prior: BMD 0.917 g/cm2. Baseline: BMD 1.048 g/cm2. LEFT FEMUR, TOTAL: Current: BMD 0.858 g/cm2, Z-score -0.9, T-score -1.2, osteopenia, 10.4% decrease from previous, 23.0% decrease from baseline (<5% change is not significant). Prior: BMD 0.958 g/cm2. Baseline: BMD 1.115 g/cm2. IDENTIFIED RISK FACTORS: Menopause, family history (parent hip fracture), glucocorticoids (chronic), history of fracture (adult), rheumatoid arthritis. HISTORY OF FRACTURE: Elbow. MEDICATIONS: Calcium or multivitamin. Vitamin D. MM/XR DEXA axial skeleton IMPRESSION: 1. DIAGNOSIS: Osteopenia based on the lowest T-score value of -2.0 in the femoral neck applying World Health Organization criteria.? ? 2. 10-YEAR FRACTURE RISK PREDICTION, FRAX: Major osteoporotic fracture (clinical spine, forearm, hip or shoulder) 50.5%. Hip fracture 5.4%. Assessment & Plan Assessment & Plan (1) Seropositive rheumatoid arthritis: Comment: ++RF++CCP Dx in 2010. Humira- injection site reaction Enbrel- injection site reaction- prior to 2013 Orencia- 02/2014-07/2020 discontinued due to active synovitis 09/23-02/2021 Kevzara - 09/2020 -injection site reaction and was started back on Orencia Actemra - 02/2021- present MTX for many years Code(s): M05.9 - Rheumatoid arthritis with rheumatoid factor, unspecified Plan: This is a 62-year-old female with seropositive RA who presents for follow-up. Her RA is well controlled on current management, Actemra weekly, methotrexate 25 mg weekly and prednisone 4 mg daily. Continue current management, advised patient to try to take prednisone 3 mg for 1 or 2 days a week. Continue current management otherwise Labs before next visit in 3 months (2) Osteopenia with high risk of fracture: Comment: DEXA 05/2021 osteopenia T-score of -2.0 femoral neck, major osteoporotic fracture risk 50.5%, hip fracture risk 5.4%. Reinforced recommendation to start Alendronate 12/2021, 04/2022, 08/2022 Code(s): M85.80 - Other specified disorders of bone density and structure, unspecified site Plan: Patient on long-term steroids. DEXA January 2019 normal. Repeat DEXA 05/2021 osteopenia T-score of -2.0 femoral neck, major osteoporotic fracture risk 50.5%, hip fracture risk 5.4%. Today we discussed the importance of antiresorptive therapy. Discussed risks and benefits of alendronate. Patient agreed to proceed. Start alendronate 70 mg weekly. Patient has a history of a hiatal hernia. If there is any significant side effects. 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 Injections can be repeated in the future as needed (5) Trigger finger, right middle finger: Code(s): M65.331 - Trigger finger, right middle finger Plan: I referred her to OT last visit. Patient did not go. States that it does not bother her too much (6) Immunization counseling: Code(s): Z71.85 - Encounter for immunization safety counseling Plan: Discussed ACR vaccination guidelines for all those with autoimmune rheumatic disease. I suggested that patient get the new COVID booster and flu vaccine for this season. Patient stated that she never took the flu vaccine. She will think about it. Advised patient to hold methotrexate for 2 doses after vaccination Plan I spent 45 minutes reviewing patient's chart, evaluating patient, ordering diagnostic workup, counseling patient and documenting in the chart Orders: Orders Complete Blood Count Auto Diff 3 Months M05.9 - Rheumatoid arthritis with rheumatoid factor, unspecified, Z79.899 - Other termite control service representative (current) drug therapy Erythrocyte Sedimentation Rate 3 Months M05.9 - Rheumatoid arthritis with rheumatoid factor, unspecified, Z79.899 - Other termite control service representative (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 Panel 3 Months M05.9 - Rheumatoid arthritis with rheumatoid factor, unspecified, Z79.899 - Other termite control service representative (current) drug therapy C Reactive Protein 3 Months M05.9 - Rheumatoid arthritis with rheumatoid factor, unspecified, Z79.899 - Other termite control service representative (current) drug therapy Medications: New alendronate Take 1 tab once weekly, 1st thing in the morning, on an empty stomach, with a large glass of water (at least 6 oz) and stay upright for 30 minutes 70 mg PO QWEEK 12 tabs 1RF Refilled prednisone 4 mg (4 x 1 mg) PO DAILY 120 tabs 2RF M05.9 - Rheumatoid arthritis with rheumatoid factor, unspecified Coding Level of Care Code Est Pt Level 5 (19886) Diagnoses Seropositive rheumatoid arthritis M05.9 Osteopenia with high risk of fracture 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
== END 2023-02-09 10:06 | disposition home or self-care (01) ==
PROVIDERS: PCP Internal Medicine; Visit Provider Student in an Organized Health Care Education/Training Program
DX: M05.79 Rheumatoid arthritis with rheumatoid factor of multiple sites without organ or systems involvement (principal); M85.80 Other specified disorders of bone density and structure, unspecified site; Z79.899 Other long term (current) drug therapy; M19.211 Secondary osteoarthritis, right shoulder; M19.212 Secondary osteoarthritis, left shoulder; M65.331 Trigger finger, right middle finger; Z71.85 Encounter for immunization safety counseling
CPT/HCPCS: 99215

== ENCOUNTER → 2023-02-09 09:17 | Outpatient (BNVA) | payer MEDICAID, SELFPAY | PROVIDERS: PCP Internal Medicine; Visit Provider Student in an Organized Health Care Education/Training Program | DX: M05.9 Rheumatoid arthritis with rheumatoid factor, unspecified (principal); M85.80 Other specified disorders of bone density and structure, unspecified site; M19.211 Secondary osteoarthritis, right shoulder; M19.212 Secondary osteoarthritis, left shoulder; M65.331 Trigger finger, right middle finger; Z79.899 Other long term (current) drug therapy; Z71.85 Encounter for immunization safety counseling | CPT/HCPCS: 99212 ==

== ENCOUNTER 2023-05-31 10:29 | Outpatient (REF) | payer MEDICAID, SELFPAY ==
[2023-05-31 10:41] LABS: MANUAL DIFF FLAG NO
[2023-05-31 11:09] LABS: Basophils Absolute Auto 0.1 X10*3/uL (0.0-0.2); Basophils Percent Auto 1.1 % (0-2); Eosinophils Absolute Auto 0.4 X10*3/uL (0.0-0.4); Hematocrit 41.4 % (37.0-47.0); Hemoglobin 13.5 g/dl (12.0-16.0); Imm Gran Abs Auto 0.03 X10*3/uL (0.00-0.03); Imm Gran Pct Auto 0.5 % (0.0-0.4); Lymphocytes Absolute Auto 1.6 X10*3/uL (1.2-4.9); Lymphocytes Percent Auto 29.3 % (20-40); Mean Corpuscular HGB Conc 32.6 g/dl (31.0-35.0); Mean Corpuscular Hemoglobin 31.7 pg (27.0-33.0); Mean Corpuscular Volume 97.2 fL (80.0-98.0); Mean Platelet Volume 9.7 fL (9.4-12.3); Monocytes Absolute Auto 0.5 X10*3/uL (0.1-1.2); Monocytes Percent Auto 9.5 % (2-11); Neutrophils Absolute Auto 2.9 x10*3/uL (2.0-8.3); Neutrophils Percent Auto 52.6 % (45-73); Platelet Count 235 X10*3/uL (160-400); Red Blood Count 4.26 X10*6/uL (4.20-5.50); Red Cell Distribution Width 12.1 % (11.0-16.0); White Blood Count 5.6 X10*3/uL (4.8-10.8)
[2023-05-31 11:45] LABS: Alanine Aminotransferase 28 U/L (0-31); Albumin Level 4.1 g/dL (3.5-5.0); Alkaline Phosphatase 56 U/L (39-117); Anion Gap 11 (12-20); Aspartate Amino Transferase 28 U/L (5-31); Bilirubin Total 0.5 mg/dL (0.0-1.0); Blood Urea Nitrogen 12 mg/dL (9-16); C Reactive Protein < 0.04 mg/dL (< or = 0.50); Calcium 9.7 mg/dL (8.4-10.2); Carbon Dioxide 29 mmol/L (22-29); Chloride 103 mmol/L (96-108); Estimated Glomerular Filt Rate > 60; Glucose Random 140 mg/dL (60-115); Potassium 3.8 mmol/L (3.3-5.1); Sodium 139 mmol/L (135-145); Total Protein 6.7 g/dL (6.5-8.0)
[2023-05-31 11:46] LABS: Erythrocyte Sedimentation Rate 2 MM/HR (0-20)
== END 2023-05-31 10:30 | disposition home or self-care (01) ==
LOC: HO.LAB 10:29
PROVIDERS: Visit Provider Student in an Organized Health Care Education/Training Program
DX: M05.9 Rheumatoid arthritis with rheumatoid factor, unspecified (principal); Z79.899 Other long term (current) drug therapy
CPT/HCPCS: 36415; 80053; 85025; 85652; 86140

== ENCOUNTER 2023-06-02 09:19 | Outpatient (AMB) | payer MEDICAID, SELFPAY ==
--- NOTE | 2023-06-02 09:23 | MHC.OFFVIS ---
Intake Vital Signs 06/02/23 09:25 Height 5 ft 7 in Weight 208 lb 15.971 oz BMI 32.7 BP 122/74 Blood Pressure Location Rt brachial Position Sitting Pulse 64 Pulse Source Pulse Oximeter Temp 97.7 F Temp Source Skin Pulse Oximetry (%) 98 Oxygen Delivery Method Room Air Intake Visit Reasons: RA Intake Note: Patient last seen 02/09/23 presents today for follow up and test results. 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 Accompanied by: Self / Same As Patient Allergies amoxicillin [Augmentin] Allergy (Severe, Verified 06/02/23 09:31) Anaphylaxis clavulanic acid [Augmentin] Allergy (Severe, Verified 06/02/23 09:31) Anaphylaxis NSAIDS (Non-Steroidal Anti-Inflamma Allergy (Severe, Verified 06/02/23 09:31) Anaphylaxis penicillin V Allergy (Severe, Verified 06/02/23 09:31) Rash hydroxychloroquine [Plaquenil] Allergy (Intermediate, Verified 06/02/23 09:31) rash sarilumab [From Kevzara] Allergy (Verified 06/02/23 09:31) injection site reaction Medication List - Last Reconciled 06/02/23 by Camilo Butts MD acetaminophen 650 mg (2 x 325 mg) PO Q6H PRN 30 days Actemra ACTPen (tocilizumab) 162 mg (0.9 mL) subcut QWEEK NS alendronate 70 mg PO QWEEK amlodipine-benazepril 2.5-10 mg 2 caps PO DAILY calcium carbonate (Calcium) 600 mg PO DAILY cholecalciferol (vitamin D3) (Vitamin D3) 10 mcg PO DAILY clotrimazole-betamethasone 1-0.05 % 1 appl topical BID folic acid 1 mg PO DAILY methotrexate sodium 25 mg (10 x 2.5 mg) PO QWEEK multivitamin 1 tab PO DAILY prednisone 3 mg PO DAILY sertraline 75 mg PO DAILY walker Folding Front wheeled walker HPI HPI Comments History of Present Illness Details This is a 62-year-old female with seropositive RA who returns for follow-up. She is on Actemra weekly and she lowered her prednisone to 3 mg daily since last visit. She has been doing fairly well. No major changes, except for slightly worsening left shoulder pain for the last 2 months. She has not picked up the alendronate. Patient had discontinued methotrexate over a year ago. Patient states that she was told she needs bilateral shoulder replacements by Dr. Reese a while ago. She also had right knee replacement, she held her RA medications for about 5 weeks and that resulted in a significant flare the took many months to resolve. She is worried about getting another surgery for fear of another RA flare [facility] Medical History (Updated 06/02/23 @ 09:58 by Camilo Butts MD) Depression Elevated blood pressure reading Osteoarthritis of right knee Post-operative nausea and vomiting Hiatal hernia COVID-19 vaccine series completed Psoriasis Surgical History Status post right knee replacement H/O colonoscopy Hx of appendectomy Hx of right knee surgery Hx of tubal ligation Family History Mother Diabetes Father Alzheimer disease Social History Household Members: Spouse Housing: House Are you a primary healthcare financial analyst to a significant other at home: No Do you presently have visiting nurse or other home services: No Alcohol intake: current Alcohol intake frequency: 0-2 drinks per day Patient Tobacco Use Status: Former Tobacco user Quit Date: 30 years ago Tobacco use type: Cigarette Cigarettes Per Day: 15 Years Smoked: 6 service: No Current occupational status: disabled Review of Systems Musc Reports arthralgias, Reports limited range of motion and Reports stiffness Physical Exam Vital Signs: Last Vital Signs Temp 97.7 F 06/02/23 09:25 Pulse 64 06/02/23 09:25 BP 122/74 06/02/23 09:25 Pulse Ox 98 06/02/23 09:25 Oxygen Delivery Method Room Air 06/02/23 09:25 BMI result Body Mass Index 32.7 Const General: cooperative, healthy appearing and comfortable Nutritional Appearance: obese Orientation/consciousness: patient oriented x3 Limitations: no limitations HEENT Head: Yes normocephalic and Yes atraumatic Mouth: moist mucous membranes Resp Effort & Inspection: normal respiratory effort and able to speak in complete sentences Cardio Rate: regular rate Neuro General: patient oriented x3 Extrem Other: Osteoarthritic changes of both hands without any significantly swollen joints Few tender MCPs and PIPs bilaterally without swelling Few tender Heberden's nodes bilaterally Bilateral limited shoulder abduction Right foot is flat and she has fibular deviation of her right foot. Results Reviewed Results Reviewed: Laboratory Tests Date of Service: 06/17/22 Procedure(s): XR hand wrist RT Accession Number(s): [id number] EXAMINATION: XR WRIST/HAND, RIGHT CLINICAL INFORMATION: Pain in right wrist? COMPARISON: None available.? TECHNIQUE: PA, lateral, and oblique views of the right wrist and PA, lateral, and oblique views of the right hand FINDINGS: RIGHT WRIST: There is loss of first carpometacarpal joint space with mild periapical spurring. Rest of the carpometacarpal joint space are normal. The intercarpal joint spaces are normal.? RIGHT HAND: There is loss of PIP and DIP joints spaces of all digits with periarticular spurring in the second third digits and mild flexion deformities of second second, third and fifth digit. No visible acute fracture, dislocation or lytic process seen. The soft tissues are normal.? XR/XR hand wrist RT IMPRESSION: 1.? Degenerative arthritic changes first carpometacarpal joint. 2.? Degenerative arthritic changes PIP and DIP joints of all digits. No visible acute fracture, dislocation or subluxation seen. ? Date of Service: 05/21/21 Procedure(s): XR DEXA axial skeleton Accession Number(s): [id number] EXAMINATION: BONE DENSITOMETRY CLINICAL INDICATION: longterm (current) use of systemic steroids. COMPARISON: Previous BD dated 01/24/2019 and baseline BD dated 04/20/2011. TECHNIQUE: Using a Personalis DXA System (software version: 13.1) manufactured by [employer], dual-energy x-ray absorptiometry was performed of the lumbar spine and left hip. The images are of good technical quality. Summary results are attached. FINDINGS: AP SPINE L1-L3 (excluding L4): The data of L1-L4 has been changed to exclude the L4 vertebral body, because degenerative changes at this level may cause overestimation of lumbar spine density. Current: BMD 0.993 g/cm2, Z-score -1.1, T-score -1.5, osteopenia, 5.3% decrease from previous, 12.6% decrease from baseline (<5% change is not significant). Prior: BMD 1.049 g/cm2. Baseline: BMD 1.136 g/cm2. LEFT FEMUR, NECK: Current: BMD 0.766 g/cm2, Z-score -1.3, T-score -2.0, osteopenia. Prior: BMD 0.917 g/cm2. Baseline: BMD 1.048 g/cm2. LEFT FEMUR, TOTAL: Current: BMD 0.858 g/cm2, Z-score -0.9, T-score -1.2, osteopenia, 10.4% decrease from previous, 23.0% decrease from baseline (<5% change is not significant). Prior: BMD 0.958 g/cm2. Baseline: BMD 1.115 g/cm2. IDENTIFIED RISK FACTORS: Menopause, family history (parent hip fracture), glucocorticoids (chronic), history of fracture (adult), rheumatoid arthritis. HISTORY OF FRACTURE: Elbow. MEDICATIONS: Calcium or multivitamin. Vitamin D. MM/XR DEXA axial skeleton IMPRESSION: 1. DIAGNOSIS: Osteopenia based on the lowest T-score value of -2.0 in the femoral neck applying World Health Organization criteria.? ? 2. 10-YEAR FRACTURE RISK PREDICTION, FRAX: Major osteoporotic fracture (clinical spine, forearm, hip or shoulder) 50.5%. Hip fracture 5.4%. Assessment & Plan Assessment & Plan (1) Seropositive rheumatoid arthritis: Comment: ++RF++CCP Dx in 2010. Humira- injection site reaction Enbrel- injection site reaction- prior to 2013 Orencia- 02/2014-07/2020 discontinued due to active synovitis 09/23-02/2021 Kevzara - 09/2020 -injection site reaction and was started back on Orencia Actemra - 02/2021- present MTX self DC 2022 with no resultant flare Code(s): M05.9 - Rheumatoid arthritis with rheumatoid factor, unspecified Plan: This is a 62-year-old female with seropositive RA who presents for follow-up. Her RA is well controlled on current management, Actemra weekly and prednisone 3 mg daily Advised patient to alternate prednisone 3 mg with 2 mg daily for a few weeks then remain on 2 mg daily Continue with Actemra weekly Labs before next visit in 3 months (2) Osteopenia with high risk of fracture: Comment: DEXA 05/2021 osteopenia T-score of -2.0 femoral neck, major osteoporotic fracture risk 50.5%, hip fracture risk 5.4%. Reinforced recommendation to start Alendronate 12/2021, 04/2022, 08/2022 Code(s): M85.80 - Other specified disorders of bone density and structure, unspecified site Plan: Patient on long-term steroids. DEXA January 2019 normal. Repeat DEXA 05/2021 osteopenia T-score of -2.0 femoral neck, major osteoporotic fracture risk 50.5%, hip fracture risk 5.4%. We discussed alendronate treatment last visit, patient did not pick it up however. Advised patient to start alendronate as discussed. Patient has history of hiatal hernia, if she develops GI upset, will DC alendronate and switch to other forms of therapy (3) Osteoarthritis of shoulders, bilateral: Code(s): M19.011 - Primary osteoarthritis, right shoulder; M19.012 - Primary osteoarthritis, left shoulder Qualifiers: Osteoarthritis type: other secondary Qualified Code(s): M19.211 - Secondary osteoarthritis, right shoulder; M19.212 - Secondary osteoarthritis, left shoulder Plan: Left shoulder was injected 11/2022 which gave her about 1 month relief. Her left shoulder has been more painful over the last 2 months. She has severe bilateral shoulder osteoarthritis and was told that she will need bilateral shoulder replacements. Patient is worried about the procedure as when she had her right knee replacement, her DMARDs were held for 5 weeks which resulted in an RA flare that resolved in many months. Will discuss perioperative DMARD management with Dr. Reese and let patient know Plan I spent 25 minutes reviewing patient's chart, evaluating patient, ordering diagnostic workup, counseling patient and documenting in the chart Orders: Orders Complete Blood Count Auto Diff 3 Months M05.9 - Rheumatoid arthritis with rheumatoid factor, unspecified Comprehensive Met. Panel 3 Months M05.9 - Rheumatoid arthritis with rheumatoid factor, unspecified C Reactive Protein 3 Months M05.9 - Rheumatoid arthritis with rheumatoid factor, unspecified Erythrocyte Sedimentation Rate 3 Months M05.9 - Rheumatoid arthritis with rheumatoid factor, unspecified Medications: Refilled alendronate Take 1 tab once weekly, 1st thing in the morning, on an empty stomach, with a large glass of water (at least 6 oz) and stay upright for 30 minutes 70 mg PO QWEEK 12 tabs 1RF Discontinued methotrexate sodium Discontinued Reason: Patient no longer taking 25 mg (10 x 2.5 mg) PO QWEEK 40 tabs 2RF Coding Level of Care Code Est Pt Level 4 (60412) Diagnoses Seropositive rheumatoid arthritis M05.9 Osteopenia with high risk of fracture M85.80 Other secondary osteoarthritis of both shoulders M19.211; M19.212 Osteoarthritis type: other secondary
[2023-06-02 09:25] VITALS: BP 122/74; PULSE 64; TEMP 36.5; O2SAT 98; BMI 32.7
== END 2023-06-02 09:50 | disposition home or self-care (01) ==
PROVIDERS: PCP Internal Medicine; Visit Provider Student in an Organized Health Care Education/Training Program
DX: M05.79 Rheumatoid arthritis with rheumatoid factor of multiple sites without organ or systems involvement (principal); M85.80 Other specified disorders of bone density and structure, unspecified site; M19.211 Secondary osteoarthritis, right shoulder; M19.212 Secondary osteoarthritis, left shoulder
CPT/HCPCS: 99214

== ENCOUNTER → 2023-06-02 09:19 | Outpatient (BNVA) | payer MEDICAID, SELFPAY | PROVIDERS: PCP Internal Medicine; Visit Provider Student in an Organized Health Care Education/Training Program | DX: M05.9 Rheumatoid arthritis with rheumatoid factor, unspecified (principal); M85.80 Other specified disorders of bone density and structure, unspecified site; M19.211 Secondary osteoarthritis, right shoulder; M19.121 Post-traumatic osteoarthritis, right elbow | CPT/HCPCS: 99212 ==

== ENCOUNTER 2023-06-14 07:40 | Outpatient (REF) | payer MEDICAID, SELFPAY ==
--- NOTE | ~2023-06-14 | XR_ITS ---
EXAMINATION: XR SHOULDER, LEFT CLINICAL INFORMATION: Pain in unspecified shoulder. COMPARISON: Right shoulder of 07/23/2020. TECHNIQUE: 3 views of the left shoulder and 3 views of the right shoulder. FINDINGS: RIGHT SHOULDER: The bones are diffusely demineralized. Mild degenerative changes in the acromioclavicular joint with joint space narrowing and hypertrophic change. Severe degenerative changes in the right acromioclavicular joint with hypertrophic change, remodeling and subchondral sclerosis. Humeral head is somewhat low in position relative to the glenoid. Possible soft tissue calcification adjacent to the superolateral aspect of the humeral head. Multiple soft tissue calcifications along the superolateral aspect of the humeral head. Dense calcification along the medial aspect of the glenoid. LEFT SHOULDER: Bones are diffusely demineralized. Degenerative changes on limited views of the upper thoracic spine. Advanced degenerative changes in the glenohumeral joint with obliteration of the joint space, remodeling of periarticular sclerotic and lucent areas. Minimal degenerative changes in the left acromioclavicular joint. XR/XR shoulder LT min 2V IMPRESSION: Severe degenerative changes in the bilateral shoulders as detailed above.
--- NOTE | ~2023-06-14 | XR_ITS ---
EXAMINATION: XR SHOULDER, RIGHT CLINICAL INFORMATION: Pain in unspecified shoulder. COMPARISON: Right shoulder of 07/23/2020. TECHNIQUE: 3 views of the right shoulder. FINDINGS: RIGHT SHOULDER: The bones are diffusely demineralized. Mild degenerative changes in the acromioclavicular joint with joint space narrowing and hypertrophic change. Severe degenerative changes in the right acromioclavicular joint with hypertrophic change, remodeling and subchondral sclerosis. Humeral head is somewhat low in position relative to the glenoid. Possible soft tissue calcification adjacent to the superolateral aspect of the humeral head. Multiple soft tissue calcifications along the superolateral aspect of the humeral head. Dense calcification along the medial aspect of the glenoid. XR/XR shoulder RT min 2V IMPRESSION: Severe degenerative changes in the right shoulder as detailed above.
== END 2023-06-14 07:41 | disposition home or self-care (01) ==
LOC: HO.HOSX 07:40
PROVIDERS: Visit Provider Orthopaedic Surgery
DX: M19.211 Secondary osteoarthritis, right shoulder (principal); M19.212 Secondary osteoarthritis, left shoulder; M06.9 Rheumatoid arthritis, unspecified
CPT/HCPCS: 73030; 99212

== ENCOUNTER 2023-06-14 08:46 | Outpatient (AMB) | payer MEDICAID, SELFPAY ==
--- NOTE | 2023-06-14 08:57 | MHC.OFFVIS ---
Intake Vital Signs 06/14/23 08:58 Height 5 ft 7 in Weight 208 lb BMI 32.6 Intake Visit Reasons: New Prob - Bilateral Shoulder OA Intake Note: Mercedes is a 62 year old right hand dominant female who presents today for a new problem visit with complaints of bilateral shoulder pain. Patient reports that she was seen about 2 years ago for the shoulders and was recommended TSA. She has history of RA. She has equal pain in both of the shoulders that increases with activity. 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 She has rheumatoid arthritis and underwent a successful right knee replacement. She describes bilateral shoulder pain. They are both equally bad. She is able, however, to function. She can use her arms over head but has to be careful and can not do any lifting. If she over does it she has pain for several days that keeps her up at night. She does not feel like this significantly impacts the quality of her life however as she is very used to pain given her longstanding rheumatoid arthritis. I spoke with her telecommunications line mechanic who gave me a good picture of her antirheumatic agents and how they would be modified in the perioperative. [facility] Medical History (Updated 06/02/23 @ 09:58 by Camilo Butts MD) Depression Elevated blood pressure reading Osteoarthritis of right knee Post-operative nausea and vomiting Hiatal hernia COVID-19 vaccine series completed Psoriasis Surgical History Status post right knee replacement H/O colonoscopy Hx of appendectomy Hx of right knee surgery Hx of tubal ligation Family History Mother Diabetes Father Alzheimer disease Social History Household Members: Spouse Housing: House Are you a primary ocular care aide to a significant other at home: No Do you presently have visiting nurse or other home services: No Alcohol intake: current Alcohol intake frequency: 0-2 drinks per day Patient Tobacco Use Status: Former Tobacco user Quit Date: 30 years ago Tobacco use type: Cigarette Cigarettes Per Day: 15 Years Smoked: 6 service: No Current occupational status: disabled Physical Exam Vital Signs: BMI result Body Mass Index 32.6 Extrem Other: Minimal external rotation bilateral upper extremities. Positive Rizvi and Neer bilaterally active abduction to 90 bilaterally with scapular recruitment. Forward flexion 120 bilaterally internal rotation to hip pocket bilateral Results Reviewed Results Reviewed: I personally reviewed relevant radiographs. Severe bilateral shoulder arthritis left greater than right Assessment & Plan Assessment & Plan (1) Osteoarthritis of shoulders, bilateral: Code(s): M19.011 - Primary osteoarthritis, right shoulder; M19.012 - Primary osteoarthritis, left shoulder Qualifiers: Osteoarthritis type: other secondary Qualified Code(s): M19.211 - Secondary osteoarthritis, right shoulder; M19.212 - Secondary osteoarthritis, left shoulder Plan: This is a very pleasant 62-year-old rheumatoid patient with bilateral osteoarthritis of the shoulders. She has had injections in the past and these have been helpful and her rheumatoid arthritis is controlled with medication and she is being followed closely by her telecommunications line mechanic Dr. Butts. I had a long discussion with Mercedes regarding her shoulders. At this point she does not feel like the quality of her life is impaired. I reviewed her x-rays and while there is some deterioration over the last 3-4 years it is not worrisome. I do think she would benefit from arthroplasty but given her relatively young age I would wait until she feels the quality of her life is significantly diminished or her function drastically deteriorates. She understands this and will follow up as needed. Orders: Orders XR shoulder LT min 2V Today M25.519 - Pain in unspecified shoulder XR shoulder RT min 2V Today M25.519 - Pain in unspecified shoulder Coding Level of Care Code Est Pt Level 4 (75907) Diagnoses Other secondary osteoarthritis of both shoulders M19.211; M19.212 Osteoarthritis type: other secondary
[2023-06-14 08:58] VITALS: BMI 32.6
== END 2023-06-14 14:43 ==
PROVIDERS: PCP Internal Medicine; Visit Provider Orthopaedic Surgery
DX: M19.211 Secondary osteoarthritis, right shoulder (principal); M19.212 Secondary osteoarthritis, left shoulder
CPT/HCPCS: 99214

== ENCOUNTER 2023-08-18 14:38 | Outpatient (REF) | payer MEDICAID, SELFPAY ==
[2023-08-18 14:58] LABS: MANUAL DIFF FLAG NO
[2023-08-18 15:30] LABS: Basophils Absolute Auto 0.1 X10*3/uL (0.0-0.2); Eosinophils Absolute Auto 0.4 X10*3/uL (0.0-0.4); Eosinophils Percent Auto 6.4 % (0-4); Hematocrit 41.7 % (37.0-47.0); Hemoglobin 13.6 g/dl (12.0-16.0); Imm Gran Abs Auto 0.04 X10*3/uL (0.00-0.03); Imm Gran Pct Auto 0.7 % (0.0-0.4); Lymphocytes Absolute Auto 1.6 X10*3/uL (1.2-4.9); Lymphocytes Percent Auto 26.1 % (20-40); Mean Corpuscular HGB Conc 32.6 g/dl (31.0-35.0); Mean Corpuscular Hemoglobin 32.1 pg (27.0-33.0); Mean Corpuscular Volume 98.3 fL (80.0-98.0); Mean Platelet Volume 9.7 fL (9.4-12.3); Monocytes Absolute Auto 0.6 X10*3/uL (0.1-1.2); Monocytes Percent Auto 9.2 % (2-11); Neutrophils Absolute Auto 3.5 x10*3/uL (2.0-8.3); Neutrophils Percent Auto 56.6 % (45-73); Platelet Count 248 X10*3/uL (160-400); Red Blood Count 4.24 X10*6/uL (4.20-5.50); Red Cell Distribution Width 12.1 % (11.0-16.0); White Blood Count 6.1 X10*3/uL (4.8-10.8)
[2023-08-18 15:52] LABS: Alanine Aminotransferase 27 U/L (0-31); Albumin Level 4.4 g/dL (3.5-5.0); Alkaline Phosphatase 58 U/L (39-117); Anion Gap 17 (12-20); Aspartate Amino Transferase 24 U/L (5-31); Bilirubin Total 0.4 mg/dL (0.0-1.0); Blood Urea Nitrogen 13 mg/dL (9-16); C Reactive Protein < 0.04 mg/dL (< or = 0.50); Calcium 10.6 mg/dL (8.4-10.2); Carbon Dioxide 28 mmol/L (22-29); Chloride 102 mmol/L (96-108); Estimated Glomerular Filt Rate > 60; Glucose Random 96 mg/dL (60-115); Potassium 5.5 mmol/L (3.3-5.1); Sodium 141 mmol/L (135-145); Total Protein 7.1 g/dL (6.5-8.0)
[2023-08-18 16:36] LABS: Erythrocyte Sedimentation Rate 6 MM/HR (0-20)
== END 2023-08-18 14:39 | disposition home or self-care (01) ==
LOC: HO.LAB 14:38
PROVIDERS: Visit Provider Student in an Organized Health Care Education/Training Program
DX: M05.9 Rheumatoid arthritis with rheumatoid factor, unspecified (principal)
CPT/HCPCS: 36415; 80053; 85025; 85652; 86140

== ENCOUNTER 2023-08-24 09:23 | Outpatient (AMB) | payer MEDICAID, SELFPAY ==
[2023-08-24 09:29] VITALS: BP 120/62; PULSE 64; O2SAT 97; BMI 33.3
--- NOTE | 2023-08-24 09:29 | MHC.OFFVIS ---
Vital Signs 08/24/23 09:29 Height 5 ft 7 in Weight 212 lb 8.41 oz BMI 33.3 BP 120/62 Blood Pressure Location Rt brachial Position Sitting Pulse 64 Pulse Source Pulse Oximeter Pulse Oximetry (%) 97 Oxygen Delivery Method Room Air Intake Visit Reasons: RA/lvm Intake Note: Patient last seen 06/02/23 presents today for follow up and test results. 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 Accompanied by: Self / Same As Patient Allergies amoxicillin [Augmentin] Allergy (Severe, Verified 08/24/23 09:29) Anaphylaxis clavulanic acid [Augmentin] Allergy (Severe, Verified 08/24/23 09:29) Anaphylaxis NSAIDS (Non-Steroidal Anti-Inflamma Allergy (Severe, Verified 08/24/23 09:29) Anaphylaxis penicillin V Allergy (Severe, Verified 08/24/23 09:29) Rash hydroxychloroquine [Plaquenil] Allergy (Intermediate, Verified 08/24/23 09:29) rash sarilumab [From Kevzara] Allergy (Verified 08/24/23 09:29) injection site reaction Medication List - Last Reconciled 08/24/23 by Camilo Butts MD acetaminophen 650 mg (2 x 325 mg) PO Q6H PRN 30 days Actemra ACTPen (tocilizumab) 162 mg (0.9 mL) subcut QWEEK NS alendronate 70 mg PO QWEEK amlodipine-benazepril 5-10 mg 1 cap PO DAILY calcium carbonate (Calcium 600) 600 mg PO DAILY cholecalciferol (vitamin D3) (Vitamin D3) 10 mcg PO DAILY clotrimazole-betamethasone 1-0.05 % 1 appl topical BID folic acid 1 mg PO DAILY multivitamin 1 tab PO DAILY prednisone 3 mg PO DAILY sertraline 75 mg PO DAILY walker Folding Front wheeled walker HPI Comments Details: This is a 62-year-old female with seropositive RA who returns for follow-up. She is on Actemra weekly and prednisone 3 mg daily. She lowered her prednisone from 4 mg daily to mg daily over the last 3-4 months. She has been doing fairly well. No major changes, she was evaluated for potential shoulder replacements by Dr. Reese due to her severe bilateral shoulder osteoarthritis. Patient elected to postpone it as she remains quite functional. Her blood pressure is better controlled now that her blood pressure medication dose has been adjusted. [facility] Medical History Depression Elevated blood pressure reading Osteoarthritis of right knee Post-operative nausea and vomiting Hiatal hernia COVID-19 vaccine series completed Psoriasis Surgical History Status post right knee replacement H/O colonoscopy Hx of appendectomy Hx of right knee surgery Hx of tubal ligation Family History Mother Diabetes Father Alzheimer disease Social History Household Members: Spouse Housing: House Are you a primary director career to a significant other at home: No Do you presently have visiting nurse or other home services: No Alcohol intake: current Alcohol intake frequency: 0-2 drinks per day Patient Tobacco Use Status: Former Tobacco user Quit Date: 30 years ago Tobacco use type: Cigarette Cigarettes Per Day: 15 Years Smoked: 6 service: No Current occupational status: disabled Review of Systems Musc Denies joint swelling, Reports limited range of motion and Reports stiffness Physical Exam Vital Signs: Last Vital Signs Pulse 64 08/24/23 09:29 BP 120/62 08/24/23 09:29 Pulse Ox 97 08/24/23 09:29 Oxygen Delivery Method Room Air 08/24/23 09:29 BMI result Body Mass Index 33.3 Const General: cooperative, healthy appearing and comfortable Nutritional Appearance: obese Orientation/consciousness: patient oriented x3 Limitations: no limitations HEENT Head: Yes normocephalic and Yes atraumatic Mouth: moist mucous membranes Resp Effort & Inspection: normal respiratory effort and able to speak in complete sentences Cardio Rate: regular rate Neuro General: patient oriented x3 Extrem Other: Osteoarthritic changes of both hands without any significantly swollen joints No active synovitis Few tender Heberden's nodes bilaterally Able to fully abduct both shoulders but with significant stiffness Right foot is flat and she has fibular deviation of her right foot. Assessment & Plan Assessment & Plan (1) Seropositive rheumatoid arthritis: Comment: ++RF++CCP Dx in 2010. Humira- injection site reaction Enbrel- injection site reaction- prior to 2013 Orencia- 02/2014-07/2020 discontinued due to active synovitis 09/23-02/2021 Kevzara - 09/2020 -injection site reaction and was started back on Orencia Actemra - 02/2021- present MTX self DC 2022 with no resultant flare Code(s): M05.9 - Rheumatoid arthritis with rheumatoid factor, unspecified Category: Medical Plan: This is a 62-year-old female with seropositive RA who presents for follow-up. Her RA is well controlled on current management, Actemra weekly and prednisone 3 mg daily Advised patient to alternate prednisone 3 mg with 2 mg daily for a few weeks then remain on 2 mg daily Continue with Actemra weekly Labs before next visit in 4 months (2) Osteopenia with high risk of fracture: Comment: DEXA 05/2021 osteopenia T-score of -2.0 femoral neck, major osteoporotic fracture risk 50.5%, hip fracture risk 5.4%. Reinforced recommendation to start Alendronate 12/2021, 04/2022, 08/2022, 08/2023 Code(s): M85.80 - Other specified disorders of bone density and structure, unspecified site Category: Medical Plan: Patient on long-term steroids. DEXA January 2019 normal. Repeat DEXA 05/2021 osteopenia T-score of -2.0 femoral neck, major osteoporotic fracture risk 50.5%, hip fracture risk 5.4%. We discussed alendronate treatment in the past. Patient was in the process of getting dental work. She recently had a crown placed but the tooth still hurts. She will be going going back to her dentist. She did not want to start it as his in the process of getting dental work. Advised patient to start alendronate as soon as she is done with her dental work (3) Osteoarthritis of shoulders, bilateral: Code(s): M19.011 - Primary osteoarthritis, right shoulder; M19.012 - Primary osteoarthritis, left shoulder Category: Medical Qualifiers: Osteoarthritis type: other secondary Qualified Code(s): M19.211 - Secondary osteoarthritis, right shoulder; M19.212 - Secondary osteoarthritis, left shoulder Plan: Severe bilateral shoulder osteoarthritis. Recently evaluated by Dr. Reese and she elected to not pursue shoulder replacement at this time as she remains quite functional. (4) Hyperkalemia: Code(s): E87.5 - Hyperkalemia Category: Medical Plan: Mild hyperkalemia 5.5. No REVA. Recently amlodipine was increased from 2.5 mg daily to 5 mg daily. Possible culprit. Possible lab error. Will repeat basic metabolic panel in 1 week. Plan I spent 25 minutes reviewing patient's chart, evaluating patient, ordering diagnostic workup, counseling patient and documenting in the chart Orders: Orders Basic Metabolic Panel 1 Week E87.5 - Hyperkalemia Complete Blood Count Auto Diff 4 Months M05.9 - Rheumatoid arthritis with rheumatoid factor, unspecified Comprehensive Met. Panel 4 Months M05.9 - Rheumatoid arthritis with rheumatoid factor, unspecified C Reactive Protein 4 Months M05.9 - Rheumatoid arthritis with rheumatoid factor, unspecified Erythrocyte Sedimentation Rate 4 Months M05.9 - Rheumatoid arthritis with rheumatoid factor, unspecified Coding Level of Care Code Est Pt Level 4 (64080) Complex EM visit Add On G2211 Diagnoses Seropositive rheumatoid arthritis M05.9 Osteopenia with high risk of fracture M85.80 Other secondary osteoarthritis of both shoulders M19.211; M19.212 Osteoarthritis type: other secondary Hyperkalemia E87.5
== END 2023-08-24 10:00 | disposition home or self-care (01) ==
PROVIDERS: PCP Internal Medicine; Referring Provider Internal Medicine; Visit Provider Student in an Organized Health Care Education/Training Program
DX: M05.79 Rheumatoid arthritis with rheumatoid factor of multiple sites without organ or systems involvement (principal); M85.80 Other specified disorders of bone density and structure, unspecified site; M19.211 Secondary osteoarthritis, right shoulder; M19.212 Secondary osteoarthritis, left shoulder; E87.5 Hyperkalemia
CPT/HCPCS: 99214; G2211

== ENCOUNTER → 2023-08-24 09:23 | Outpatient (BNVA) | payer MEDICAID, SELFPAY | PROVIDERS: PCP Internal Medicine; Visit Provider Student in an Organized Health Care Education/Training Program | DX: M05.9 Rheumatoid arthritis with rheumatoid factor, unspecified (principal); M85.80 Other specified disorders of bone density and structure, unspecified site; M19.211 Secondary osteoarthritis, right shoulder; M19.212 Secondary osteoarthritis, left shoulder; E87.5 Hyperkalemia | CPT/HCPCS: 99212 ==

== ENCOUNTER 2023-12-15 14:10 | Outpatient (REF) | payer MEDICAID, SELFPAY ==
[2023-12-15 14:22] LABS: MANUAL DIFF FLAG NO
[2023-12-15 15:11] LABS: Basophils Absolute Auto 0.1 X10*3/uL (0.0-0.2); Basophils Percent Auto 1.2 % (0-2); Eosinophils Absolute Auto 0.5 X10*3/uL (0.0-0.4); Eosinophils Percent Auto 7.7 % (0-4); Hematocrit 43.4 % (37.0-47.0); Imm Gran Abs Auto 0.04 X10*3/uL (0.00-0.03); Imm Gran Pct Auto 0.6 % (0.0-0.4); Lymphocytes Absolute Auto 1.7 X10*3/uL (1.2-4.9); Lymphocytes Percent Auto 25.7 % (20-40); Mean Corpuscular HGB Conc 32.3 g/dl (31.0-35.0); Mean Corpuscular Hemoglobin 31.4 pg (27.0-33.0); Mean Corpuscular Volume 97.3 fL (80.0-98.0); Mean Platelet Volume 10.1 fL (9.4-12.3); Monocytes Absolute Auto 0.6 X10*3/uL (0.1-1.2); Monocytes Percent Auto 9.8 % (2-11); Neutrophils Absolute Auto 3.6 x10*3/uL (2.0-8.3); Platelet Count 235 X10*3/uL (160-400); Red Blood Count 4.46 X10*6/uL (4.20-5.50); Red Cell Distribution Width 12.1 % (11.0-16.0); White Blood Count 6.5 X10*3/uL (4.8-10.8)
[2023-12-15 15:51] LABS: Erythrocyte Sedimentation Rate 4 MM/HR (0-20)
== END 2023-12-15 14:11 | disposition home or self-care (01) ==
LOC: HO.LAB 14:10
PROVIDERS: PCP Internal Medicine; Visit Provider Student in an Organized Health Care Education/Training Program
DX: M05.9 Rheumatoid arthritis with rheumatoid factor, unspecified (principal)
CPT/HCPCS: 36415; 85025; 85652

== ENCOUNTER 2023-12-27 09:28 | Outpatient (AMB) | payer MEDICAID, SELFPAY ==
[2023-12-27 09:33] VITALS: BP 120/60; PULSE 65; O2SAT 98; BMI 33.5
--- NOTE | 2023-12-27 09:33 | A.OFFVIS_ITS ---
Vital Signs 12/27/23 09:33 Height 5 ft 7 in Weight 214 lb 1.102 oz BMI 33.5 BP 120/60 Blood Pressure Location Lt brachial Position Sitting Pulse 65 Pulse Source Pulse Oximeter Pulse Oximetry (%) 98 Oxygen Delivery Method Room Air Intake Visit Reasons: RA Intake Note: Patient last seen by Doctor Camilo Butts on 08/24/23. Patient presents today for RA follow up and test results. Allergies amoxicillin [Augmentin] Allergy (Severe, Verified 12/27/23 09:38) Anaphylaxis clavulanic acid [Augmentin] Allergy (Severe, Verified 12/27/23 09:38) Anaphylaxis NSAIDS (Non-Steroidal Anti-Inflamma Allergy (Severe, Verified 12/27/23 09:38) Anaphylaxis penicillin V Allergy (Severe, Verified 12/27/23 09:38) Rash hydroxychloroquine [Plaquenil] Allergy (Intermediate, Verified 12/27/23 09:38) rash sarilumab [From Kevzara] Allergy (Verified 12/27/23 09:38) injection site reaction Medication List - Last Reconciled 12/27/23 by Camilo Butts MD acetaminophen 650 mg (2 x 325 mg) PO Q6H PRN 30 days Actemra ACTPen (tocilizumab) 162 mg (0.9 mL) subcut QWEEK NS alendronate 70 mg PO QWEEK amlodipine-benazepril 5-10 mg 1 cap PO DAILY calcium carbonate (Calcium 600) 600 mg PO DAILY cetirizine (Zyrtec) 10 mg PO DAILY PRN cholecalciferol (vitamin D3) (Vitamin D3) 10 mcg PO DAILY clotrimazole-betamethasone 1-0.05 % 1 appl topical BID folic acid 1 mg PO DAILY multivitamin 1 tab PO DAILY prednisone 2 mg (2 x 1 mg) PO DAILY sertraline 75 mg PO DAILY walker Folding Front wheeled walker HPI Comments Details: This is a 63-year-old female with seropositive RA who returns for follow-up. She is on Actemra weekly and prednisone 2 mg daily. She alternated prednisone 2 and 3 mg for a few weeks then stay on 2 mg daily. She did not notice much of a difference. She has been doing fairly well. No major changes, her shoulders have been somewhat sore lately because she had done some yard work recently. She has been having dental problems. She states that she might need another root canal. Has not had any recent illnesses. Has not had any falls or fractures. She has been having some urinary incontinence and will be evaluated by a urologist [facility] Medical History (Updated 12/27/23 @ 10:18 by Camilo Butts MD) Urinary incontinence Depression Elevated blood pressure reading Osteoarthritis of right knee Post-operative nausea and vomiting Hiatal hernia COVID-19 vaccine series completed Psoriasis Surgical History Status post right knee replacement H/O colonoscopy Hx of appendectomy Hx of right knee surgery Hx of tubal ligation Family History Mother Diabetes Father Alzheimer disease Social History Household Members: Spouse Housing: House Are you a primary healthcare social worker to a significant other at home: No Do you presently have visiting nurse or other home services: No Alcohol intake: current Alcohol intake frequency: 0-2 drinks per day Patient Tobacco Use Status: Former Tobacco user Tobacco use type: Cigarette Cigarettes Per Day: 15 Years Smoked: 6 service: No Current occupational status: disabled Review of Systems ENT Reports dental pain Reports urinary incontinence and Reports urinary urgency Musc Denies joint swelling, Reports limited range of motion and Reports stiffness Physical Exam Vital Signs: Last Vital Signs Pulse 65 12/27/23 09:33 BP 120/60 12/27/23 09:33 Pulse Ox 98 12/27/23 09:33 Oxygen Delivery Method Room Air 12/27/23 09:33 BMI result Body Mass Index 33.5 Const General: cooperative, healthy appearing and comfortable Nutritional Appearance: obese Orientation/consciousness: patient oriented x3 Limitations: no limitations HEENT Head: Yes normocephalic and Yes atraumatic Mouth: moist mucous membranes Resp Effort & Inspection: normal respiratory effort and able to speak in complete sentences Cardio Rate: regular rate Neuro General: patient oriented x3 Extrem Other: Osteoarthritic changes of both hands without any significantly swollen joints No active synovitis Few tender Heberden's nodes bilaterally Able to fully abduct both shoulders but with significant stiffness Right foot is flat and she has fibular deviation of her right foot. Results Reviewed Results Reviewed: Laboratory Tests Date of Service: 06/17/22 Procedure(s): XR hand wrist RT Accession Number(s): [id number] EXAMINATION: XR WRIST/HAND, RIGHT CLINICAL INFORMATION: Pain in right wrist? COMPARISON: None available.? TECHNIQUE: PA, lateral, and oblique views of the right wrist and PA, lateral, and oblique views of the right hand FINDINGS: RIGHT WRIST: There is loss of first carpometacarpal joint space with mild periapical spurring. Rest of the carpometacarpal joint space are normal. The intercarpal joint spaces are normal.? RIGHT HAND: There is loss of PIP and DIP joints spaces of all digits with periarticular spurring in the second third digits and mild flexion deformities of second second, third and fifth digit. No visible acute fracture, dislocation or lytic process seen. The soft tissues are normal.? XR/XR hand wrist RT IMPRESSION: 1.? Degenerative arthritic changes first carpometacarpal joint. 2.? Degenerative arthritic changes PIP and DIP joints of all digits. No visible acute fracture, dislocation or subluxation seen. ? Date of Service: 05/21/21 Procedure(s): XR DEXA axial skeleton Accession Number(s): [id number] EXAMINATION: BONE DENSITOMETRY CLINICAL INDICATION: lighter (current) use of systemic steroids. COMPARISON: Previous BD dated 01/24/2019 and baseline BD dated 04/20/2011. TECHNIQUE: Using a [employer] DXA System (software version: 13.1) manufactured by [employer], dual-energy x-ray absorptiometry was performed of the lumbar spine and left hip. The images are of good technical quality. Summary results are attached. FINDINGS: AP SPINE L1-L3 (excluding L4): The data of L1-L4 has been changed to exclude the L4 vertebral body, because degenerative changes at this level may cause overestimation of lumbar spine density. Current: BMD 0.993 g/cm2, Z-score -1.1, T-score -1.5, osteopenia, 5.3% decrease from previous, 12.6% decrease from baseline (<5% change is not significant). Prior: BMD 1.049 g/cm2. Baseline: BMD 1.136 g/cm2. LEFT FEMUR, NECK: Current: BMD 0.766 g/cm2, Z-score -1.3, T-score -2.0, osteopenia. Prior: BMD 0.917 g/cm2. Baseline: BMD 1.048 g/cm2. LEFT FEMUR, TOTAL: Current: BMD 0.858 g/cm2, Z-score -0.9, T-score -1.2, osteopenia, 10.4% decrease from previous, 23.0% decrease from baseline (<5% change is not significant). Prior: BMD 0.958 g/cm2. Baseline: BMD 1.115 g/cm2. IDENTIFIED RISK FACTORS: Menopause, family history (parent hip fracture), glucocorticoids (chronic), history of fracture (adult), rheumatoid arthritis. HISTORY OF FRACTURE: Elbow. MEDICATIONS: Calcium or multivitamin. Vitamin D. MM/XR DEXA axial skeleton IMPRESSION: 1. DIAGNOSIS: Osteopenia based on the lowest T-score value of -2.0 in the femoral neck applying World Health Organization criteria.? ? 2. 10-YEAR FRACTURE RISK PREDICTION, FRAX: Major osteoporotic fracture (clinical spine, forearm, hip or shoulder) 50.5%. Hip fracture 5.4%. Assessment & Plan Assessment & Plan (1) Seropositive rheumatoid arthritis: Comment: ++RF++CCP Dx in 2010. Humira- injection site reaction Enbrel- injection site reaction- prior to 2013 Orencia- 02/2014-07/2020 discontinued due to active synovitis 09/23-02/2021 Kevzara - 09/2020 -injection site reaction and was started back on Orencia Actemra - 02/2021- present MTX self DC 2022 with no resultant flare Code(s): M05.9 - Rheumatoid arthritis with rheumatoid factor, unspecified Category: Medical Plan: This is a 62-year-old female with seropositive RA who presents for follow-up. Her RA is well controlled on current management, Actemra weekly and prednisone 3 mg daily Advised patient to alternate prednisone 3 mg with 2 mg daily for a few weeks then remain on 2 mg daily Continue with Actemra weekly Labs before next visit in 4 months (2) Osteopenia with high risk of fracture: Comment: DEXA 05/2021 osteopenia T-score of -2.0 femoral neck, major osteoporotic fracture risk 50.5%, hip fracture risk 5.4%. Reinforced recommendation to start Alendronate 12/2021, 04/2022, 08/2022, 08/2023 Code(s): M85.80 - Other specified disorders of bone density and structure, unspecified site Category: Medical Plan: Patient on long-term steroids. DEXA January 2019 normal. Repeat DEXA 05/2021 osteopenia T-score of -2.0 femoral neck, major osteoporotic fracture risk 50.5%, hip fracture risk 5.4%. We discussed alendronate treatment in the past. Patient was in the process of getting dental work. She recently had a crown placed but the tooth still hurts. Her dental work is not yet complete. She will be going back to see her dentist next month. Will repeat DEXA scan May of 2024. (3) Osteoarthritis of shoulders, bilateral: Code(s): M19.011 - Primary osteoarthritis, right shoulder; M19.012 - Primary osteoarthritis, left shoulder Category: Medical Qualifiers: Osteoarthritis type: other secondary Qualified Code(s): M19.211 - Secondary osteoarthritis, right shoulder; M19.212 - Secondary osteoarthritis, left shoulder Plan: Severe bilateral shoulder osteoarthritis. Recently evaluated by Dr. Reese and she elected to not pursue shoulder replacement at this time as she remains quite functional. Plan I spent 25 minutes reviewing patient's chart, evaluating patient, ordering diagnostic workup, counseling patient and documenting in the chart Medications: Refilled prednisone 2 mg (2 x 1 mg) PO DAILY 180 tabs 1RF M05.9 - Rheumatoid arthritis with rheumatoid factor, unspecified Coding Level of Care Code Est Pt Level 4 (99895) Diagnoses Seropositive rheumatoid arthritis M05.9 Osteopenia with high risk of fracture M85.80 Other secondary osteoarthritis of both shoulders M19.211; M19.212 Osteoarthritis type: other secondary
== END 2023-12-27 10:14 | disposition home or self-care (01) ==
PROVIDERS: PCP Internal Medicine; Visit Provider Student in an Organized Health Care Education/Training Program
DX: M05.79 Rheumatoid arthritis with rheumatoid factor of multiple sites without organ or systems involvement (principal); M85.80 Other specified disorders of bone density and structure, unspecified site; M19.211 Secondary osteoarthritis, right shoulder; M19.212 Secondary osteoarthritis, left shoulder
CPT/HCPCS: 99214

== ENCOUNTER → 2023-12-27 09:28 | Outpatient (BNVA) | payer MEDICAID, SELFPAY | PROVIDERS: PCP Internal Medicine; Visit Provider Student in an Organized Health Care Education/Training Program | DX: M05.9 Rheumatoid arthritis with rheumatoid factor, unspecified (principal); M85.80 Other specified disorders of bone density and structure, unspecified site; M19.211 Secondary osteoarthritis, right shoulder; M19.212 Secondary osteoarthritis, left shoulder | CPT/HCPCS: 99212 ==

== ENCOUNTER 2024-06-06 08:11 | Outpatient (REF) | payer MEDICAID, SELFPAY ==
--- NOTE | ~2024-06-06 | MM_ITS ---
EXAMINATION: DXA BONE DENSITY AXIAL HISTORY: Estrogen deficiency TECHNIQUE: [employer] Dual energy absorptiometry (DEXA) of the lumbar spine, total left hip, and femoral neck was performed. COMPARISON: Comparison is made with the prior examination dated 05/21/2021. FINDINGS: The bone mineral density of the lumbar spine is 0.957 with a T-score of -1.7, and a Z-score of -1.3. This represents a BMD change of -0.1% compared to the prior exam. This is not statistically significant. The bone mineral density of the left total hip is 0.896 with a T-score of -0.9, and a Z-score of -0.5. This represents BMD change of 4.4% compared to the prior exam. This is statistically significant. The bone mineral density of the left femoral neck is 0.827 with a T-score of -1.5, and a Z-score of -0.8. This represents BMD change of 8.0% compared to the prior exam. FRACTURE RISK: The FRAX index suggests a ten year probability of major osteoporotic fracture of 27.2%, and of hip fracture 3.6%. MM/XR DEXA axial skeleton IMPRESSION: Based on bone mineral density, and according to World Health Organization (WHO) criteria, the diagnosis is consistent with osteopenia. All bone density values are in grams per centimeter squared (g/cm2). Statistically, 68% of repeat scans fall within 1 SD (+/- 0.010 g/cm2 for AP spine L1-L4) and 1 SD (+/- 0.012 g/cm2 for femur total) FRAX is a trademark of the [employer], a World Health Organization (WHO) Collaborating Center. Electronically signed by: Christ Turner MD 06/09/2024 06:59 AM [facility]
== END 2024-06-06 08:12 | disposition home or self-care (01) ==
LOC: HO.MAMMO 08:11
PROVIDERS: PCP Nurse Practitioner; Visit Provider Student in an Organized Health Care Education/Training Program
DX: Z13.820 Encounter for screening for osteoporosis (principal); M85.80 Other specified disorders of bone density and structure, unspecified site; E28.39 Other primary ovarian failure
CPT/HCPCS: 77080

== ENCOUNTER → 2024-06-06 08:15 | Outpatient (BNV) | payer MEDICAID, SELFPAY | PROVIDERS: PCP Nurse Practitioner; Visit Provider Radiology Diagnostic Radiology | DX: E28.39 Other primary ovarian failure (principal) | CPT/HCPCS: 77080 ==

== ENCOUNTER 2024-06-06 08:42 | Outpatient (REF) | payer MEDICAID, SELFPAY ==
[2024-06-06 09:03] LABS: MANUAL DIFF FLAG NO
[2024-06-06 09:27] LABS: Basophils Percent Auto 0.8 % (0-2); Eosinophils Absolute Auto 0.3 X10*3/uL (0.0-0.4); Eosinophils Percent Auto 5.5 % (0-4); Hemoglobin 13.8 g/dl (12.0-16.0); Imm Gran Abs Auto 0.04 X10*3/uL (0.00-0.03); Imm Gran Pct Auto 0.8 % (0.0-0.4); Lymphocytes Absolute Auto 1.7 X10*3/uL (1.2-4.9); Lymphocytes Percent Auto 32.9 % (20-40); Mean Corpuscular HGB Conc 32.1 g/dl (31.0-35.0); Mean Corpuscular Hemoglobin 31.7 pg (27.0-33.0); Mean Corpuscular Volume 98.6 fL (80.0-98.0); Mean Platelet Volume 9.7 fL (9.4-12.3); Monocytes Absolute Auto 0.4 X10*3/uL (0.1-1.2); Monocytes Percent Auto 7.9 % (2-11); Neutrophils Absolute Auto 2.7 x10*3/uL (2.0-8.3); Neutrophils Percent Auto 52.1 % (45-73); Platelet Count 207 X10*3/uL (160-400); Red Blood Count 4.36 X10*6/uL (4.20-5.50); Red Cell Distribution Width 12.2 % (11.0-16.0); White Blood Count 5.1 X10*3/uL (4.8-10.8)
[2024-06-06 10:09] LABS: Alanine Aminotransferase 38 U/L (0-31); Albumin Level 4.2 g/dL (3.5-5.0); Alkaline Phosphatase 55 U/L (39-117); Anion Gap 11 (12-20); Aspartate Amino Transferase 29 U/L (5-31); Bilirubin Total 0.3 mg/dL (0.0-1.0); Blood Urea Nitrogen 13 mg/dL (9-16); C Reactive Protein < 0.04 mg/dL (< or = 0.50); Calcium 9.5 mg/dL (8.4-10.2); Carbon Dioxide 31 mmol/L (22-29); Chloride 106 mmol/L (96-108); Estimated Glomerular Filt Rate > 60; Glucose Random 115 mg/dL (60-115); Potassium 4.6 mmol/L (3.3-5.1); Sodium 143 mmol/L (135-145); Total Protein 7.2 g/dL (6.5-8.0)
[2024-06-06 10:10] LABS: Erythrocyte Sedimentation Rate 3 MM/HR (0-20)
== END 2024-06-06 08:43 | disposition home or self-care (01) ==
LOC: HO.LAB 08:42
PROVIDERS: PCP Nurse Practitioner; Visit Provider Student in an Organized Health Care Education/Training Program
DX: M05.9 Rheumatoid arthritis with rheumatoid factor, unspecified (principal)
CPT/HCPCS: 36415; 80053; 85025; 85652; 86140

== ENCOUNTER 2024-09-12 11:13 | Outpatient (AMB) | payer MEDICAID, SELFPAY ==
--- NOTE | 2024-09-12 11:22 | MHC.OFFVIS ---
Vital Signs 09/12/24 11:26 Height 5 ft 7 in Weight 209 lb 14.081 oz BMI 32.9 BP 134/82 Blood Pressure Location Lt brachial Position Sitting Pulse 72 Pulse Source Pulse Oximeter Pulse Oximetry (%) 98 Oxygen Delivery Method Room Air Intake Visit Reasons: RA Intake Note: Patient presents for RA follow up. Allergies amoxicillin [Augmentin] Allergy (Severe, Verified 09/12/24 11:25) Anaphylaxis clavulanic acid [Augmentin] Allergy (Severe, Verified 09/12/24 11:25) Anaphylaxis NSAIDS (Non-Steroidal Anti-Inflamma Allergy (Severe, Verified 09/12/24 11:25) Anaphylaxis penicillin V Allergy (Severe, Verified 09/12/24 11:25) Rash hydroxychloroquine [Plaquenil] Allergy (Intermediate, Verified 09/12/24 11:25) rash sarilumab [From Kevzara] Allergy (Verified 09/12/24 11:25) injection site reaction Medication List - Last Reconciled 09/12/24 by Mary Ellen Rodríguez MD acetaminophen 650 mg (2 x 325 mg) PO Q6H PRN 30 days alendronate 70 mg PO QWEEK amlodipine-benazepril 5-10 mg 1 cap PO DAILY calcium carbonate (Calcium 600) 600 mg PO DAILY cetirizine (Zyrtec) 10 mg PO DAILY PRN cholecalciferol (vitamin D3) (Vitamin D3) 10 mcg PO DAILY clotrimazole-betamethasone 1-0.05 % 1 appl topical BID folic acid 1 mg PO DAILY multivitamin 1 tab PO DAILY prednisone 2 mg (2 x 1 mg) PO DAILY sertraline 75 mg PO DAILY tocilizumab (Actemra ACTPen) 162 mg (0.9 mL) subcut QWEEK walker Folding Front wheeled walker HPI Comments Details: Patient is a 63-year-old female with hypertension, osteopenia with high fracture risk, polyarticular osteoarthritis (bilateral shoulder OA) and seropositive rheumatoid arthritis here today for follow up Interval History: Patient last seen 12/27/[address] Butts. At that time she was following up for her seropositive rheumatoid arthritis on Actemra weekly and prednisone 2 mg daily. Had no significant complaints at that exam. Was being evaluated by Dentistry for a root canal. 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 Humira- injection site reaction Enbrel- injection site reaction- prior to 2013 Orencia- 02/2014-07/2020 discontinued due to active synovitis 09/23-02/2021 Kevzara - 09/2020 -injection site reaction and was started back on Orencia Actemra - 02/2021- present MTX self DC 2022 with no resultant flare Current Rheumatology Medication(s): Actemra 162mg weekly SC Prenisone 2mg daily PFSH Medical History (Updated 09/12/24 @ 12:35 by Mary Ellen Rodríguez MD) Urinary incontinence Depression Elevated blood pressure reading Osteoarthritis of right knee Post-operative nausea and vomiting Hiatal hernia COVID-19 vaccine series completed Psoriasis Surgical History History of cancer surgery Status post right knee replacement H/O colonoscopy Hx of appendectomy Hx of right knee surgery Hx of tubal ligation Family History Mother Diabetes Father Alzheimer disease Social History Household Members: Spouse Housing: House Are you a primary healthcare architect to a significant other at home: No Do you presently have visiting nurse or other home services: No Alcohol intake: current Alcohol intake frequency: 0-2 drinks per day Patient Tobacco Use Status: Former Tobacco user Tobacco use type: Cigarette Cigarettes Per Day: 15 Years Smoked: 6 service: No Current occupational status: disabled Review of Systems Const Details: Review of Systems Constitutional: Denies fever, chills, weight loss ENT: Denies vision changes, eye pain or eye redness, dental caries, dry mouth GI: Denies nausea, vomiting, diarrhea, abdominal pain, change in BM Pulm: Denies SOB, MEJIA, hemoptysis, wheezing Cards: Denies chest pain, palpitations Skin: Denies Raynaud's, rash, nail changes, photosensitivity, VP HR DIVERSITY: Denies headaches, weakness, paresthesias, recurrent falls MSK: as per HPI All other systems reviewed and are unremarkable except noted above Physical Exam Vital Signs: Last Vital Signs Pulse 72 09/12/24 11:26 BP 134/82 09/12/24 11:26 Pulse Ox 98 09/12/24 11:26 Oxygen Delivery Method Room Air 09/12/24 11:26 BMI result Body Mass Index 32.9 Vital signs reviewed Physical Examination CONSTITUITIONAL Patient alert and cooperative. Well appearing and in no apparent painful distress HEENT Conjunctiva and sclera clear. ?Pupils equal round and reactive to light. ?No lymphadenopathy. ? CHEST/RESPIRATORY SYSTEM Normal respiratory effort and able to speak in complete sentences. ?Clear to auscultation bilaterally. ?No crackles, rales, rhonchi, wheezes heard. CARDIAC SYSTEM Regular rate and rhythm. ?S1 and S2 heard no murmurs. ?Radial pulses intact bilaterally MSK Hands: ?Able to make a fist. No synovitis noted to the MCPs, PIPs or DIPs. ?No tenderness to palpation of these joints. Prominent herbeden's nodes Wrists: ?Full range of motion at the wrists without pain. ?No tenderness to palpation or synovitis noted to the wrists. Elbows: Full range of motion without pain. No tenderness, weakness, swelling, increased warmth or erythema. Shoulders: Decreased ROM to bilateral shoulders up to about 90 degrees Knees: ?Full range of motion. ?No tenderness, swelling, increased warmth or erythema.?Crepitations felt in the left knee Ankles: Full range of motion. ?No tenderness, swelling, increased warmth or erythema.? Feet: ?Negative squeeze test. ?No tenderness to palpation or swelling of the MTPs. Tender points:?No tenderness to palpation of the bilateral trapezius, supraspinatus, greater trochanters, anterior costochondral junctions, bilateral gluteal areas, bilateral suboccipital muscle insertions SKIN Skin intact without rashes. Results Reviewed Results Reviewed: Laboratory Tests 06/06/24 09:02 WBC 5.1 RBC 4.36 Hgb 13.8 Hct 43.0 Plt Count 207 ESR 3 Sodium 143 Potassium 4.6 Chloride 106 Carbon Dioxide 31 H BUN 13 Creatinine 0.67 Random Glucose 115 Calcium 9.5 D Total Bilirubin 0.3 AST 29 ALT 38 H C-Reactive Protein < 0.04 Laboratory Tests 02/05/23 10:30 Hepatitis A IgM Ab Nonreactive Hep Bs Antigen Negative Hep Bs Antibody NONREACTIVE Hep B Core Total Ab Nonreactive Hepatitis C Ab (EIA) Nonreactive TB Test (T-Spot) Com Negative DEXA 06/2024 FINDINGS: The bone mineral density of the lumbar spine is 0.957 with a T-score of -1.7, and a Z-score of -1.3. This represents a BMD change of -0.1% compared to the prior exam. This is not statistically significant. The bone mineral density of the left total hip is 0.896 with a T-score of -0.9, and a Z-score of -0.5. This represents BMD change of 4.4% compared to the prior exam. This is statistically significant. The bone mineral density of the left femoral neck is 0.827 with a T-score of -1.5, and a Z-score of -0.8. This represents BMD change of 8.0% compared to the prior exam. The FRAX index suggests a ten year probability of major osteoporotic fracture of 27.2%, and of hip fracture 3.6%. Assessment & Plan Assessment & Plan (1) Seropositive rheumatoid arthritis: Comment: ++RF++CCP Dx in 2010. Humira- injection site reaction Enbrel- injection site reaction- prior to 2013 Orencia- 02/2014-07/2020 discontinued due to active synovitis 09/23-02/2021 Kevzara - 09/2020 -injection site reaction and was started back on Orencia Actemra - 02/2021- present MTX self DC 2022 with no resultant flare Code(s): M05.9 - Rheumatoid arthritis with rheumatoid factor, unspecified Category: Medical Plan: #Seropositive RA Patient is a 63 y.o. female with seropositive RA here today for follow up. Currently in remission on Actemra monotherapy, weekly. We will continue to decrease/taper her prednisone Plan - Decrease prednisone to 2mg daily - Actemra 162mg weekly SC - Labs today: CBC, CMP, ESR, CRP, Lipid panel - RTC 4 months (2) Osteopenia with high risk of fracture: Comment: DEXA 05/2021: AP spine -1.5, Left femur neck -2.0, Left femur total -1.2 FRAX 50.5/5.4 DEXA 06/2024: AP spine -1.7, Left femur neck -1.5, Left femur total -0.9 FRAX 27.2/3.6 Alendonate 05/2021 - 09/2024. Drug holiday in the setting of dental procedures Code(s): M85.80 - Other specified disorders of bone density and structure, unspecified site Category: Medical Plan: #Osteopenia with high FRAX Patient with osteopenia and high FRAX. Patient has not been consistent with taking her alendronate. Despite this she has had overall improvement in her bone density. Her spine bone density is about the same whereas her hip bone density has improved 4-8%. I think it is okay for her to hold the alendronate and she has been on it for the past 3 years. Encouraged and reinforced weight-bearing exercises and having her sharepoint trainer, with the exercise plan that we will increase weight-bearing exercises to hip and spine Plan - Hold Alendronate - DEXA 05/2026 - Continue Vit D supplementation (3) Polyarticular osteoarthritis: Code(s): M15.9 - Polyosteoarthritis, unspecified Plan: #Polyarticular OA Patient with polyarticular osteoarthritis. Known severe osteoarthritis of bilateral shoulders. Follows with ortho. 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: Code(s): Z79.52 - pharmaceutical assistant (current) use of systemic steroids Category: Medical Plan: #Long-term Use of Steroids Discussed with patient the risks and benefits of steroid for managing the rheumatic condition Benefits include: - Reduced pain, improved mobility, increased participation in activities, and decreased progression of disease Risks include: - GI upset, potential ultrasound worsening or formation (especially in patients > 65 years old), elevated blood pressure/worsening hypertension, elevated blood sugar/worsening diabetes control, worsening of bone density, elevated lipids/worsening triglycerides, cataract formation, weight gain Recommended using proton pump inhibitors (PPIs) for the duration of steroid use to reduce the risk of gastric ulcers and vitamin-D daily to reduce the risk of osteoporosis Labs checked: ?A1c, T spot, hepatitis-B and C serologies Pneumocystis jiroveci prophylaxis: ?Patient with risk factors including steroids greater than 50 mg for more than 30 days, age greater than 60 years, and lung involvement from underlying rheumatic disease requires prophylaxis and will be given so (5) Encounter for monitoring tocilizumab therapy: Code(s): Z51.81 - Encounter for therapeutic drug level monitoring; Z79.620 - pharmaceutical assistant (current) use of immunosuppressive biologic Plan: #Long-term Use of Tocilizumab Discussed the risks and benefits of tocilizumab with the management of this patient's rheumatic condition. ? Benefits include decreased pain, improved mortality, improved quality of life Risks include LFT abnormalities, elevated triglycerides, GI perforations Contraindicated in a patient with history of diverticulitis Monitoring: ?CBC, CMP, triglycerides Plan I spent 30 minutes reviewing the record and labs, taking a history, examining the patient, discussing the treatment plan, ordering diagnostic work up and documenting in the medical record Orders: Orders Complete Blood Count Auto Diff Today M05.9 - Rheumatoid arthritis with rheumatoid factor, unspecified C Reactive Protein Today M05.9 - Rheumatoid arthritis with rheumatoid factor, unspecified Erythrocyte Sedimentation Rate Today M05.9 - Rheumatoid arthritis with rheumatoid factor, unspecified Lipid Panel Today M05.9 - Rheumatoid arthritis with rheumatoid factor, unspecified Comprehensive Met. Panel Today M05.9 - Rheumatoid arthritis with rheumatoid factor, unspecified Vitamin D 25-OH Total Today E55.9 - Vitamin D deficiency, unspecified Medications: Changed From prednisone 2 mg (2 x 1 mg) PO DAILY 180 tabs 1RF M05.9 - Rheumatoid arthritis with rheumatoid factor, unspecified To prednisone 2 mg (2 x 1 mg) PO DAILY 90 days 180 tabs 1RF M05.9 - Rheumatoid arthritis with rheumatoid factor, unspecified Refilled tocilizumab (Actemra ACTPen) 162 mg (0.9 mL) subcut QWEEK 3.6 mL 5RF M05.9 - Rheumatoid arthritis with rheumatoid factor, unspecified Discontinued alendronate Take 1 tab once weekly, 1st thing in the morning, on an empty stomach, with a large glass of water (at least 6 oz) and stay upright for 30 minutes Discontinued Reason: Doctor's Order 70 mg PO QWEEK 12 tabs 1RF Coding Level of Care Code Est Pt Level 4 (45824) Complex EM visit Add On G2211 Diagnoses Seropositive rheumatoid arthritis M05.9 Osteopenia with high risk of fracture M85.80 Polyarticular osteoarthritis M15.9 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
[2024-09-12 11:26] VITALS: BP 134/82; PULSE 72; O2SAT 98; BMI 32.9
--- OUTSIDE RECORDS SUMMARY | 2024-09-12 13:27 | XMS_ITS | Clinical Summary ---
Author Organization [facility] Address [address] [place] [phone] Phone Care Team Providers Care [employer] Law Clerk Name Role Phone Ming Leung MD Primary Care Provider [phone] Allergies Active Allergy Reactions Criticality Noted Date Comments Amoxicillin-Pot Clavulanate Anaphylaxis High 025 Ibuprofen Anaphylaxis,Rash High 07/19/2024 Penicillins Anaphylaxis High 07/19/2024 Medications predniSONE (DELTASONE) 1 mg tablet Take 2 tablets (2 mg total) by mouth 1 (one) time each day. 5 Active amLODIPine-benaz epril (LOTREL) 5-10 mg per capsule Take 1 capsule by mouth 1 (one) time each day. 5 Active azithromycin (ZITHROMAX) 250 mg tablet TAKE 2 TABLETS BY MOUTH FOR 1 DAY THEN TAKE 1 TABLET BY MOUTH DAILY FOR 4 DAYS 4 Active clindamycin (CLEOCIN) 300 mg capsule TAKE 2 CAPSULES BY MOUTH 1 HOUR BEFORE DENTAL APPOINTMENT 5 Active folic acid (FOLVITE) 1 mg tablet Take 1 tablet (1,000 mcg total) by mouth 1 (one) time each day. Active Nystop 100,000 unit/gram powder 4 Active Actemra ACTPen subcutaneous injection 5 Active Active Problems Problem Noted Date Diagnosed Date Basal cell carcinoma (BCC) of left side of nose 07/19/2024 Encounters Date Type Department Care Team Description 08/21/2024 9:30 AM EDT Office Visit Plastic & Reconstructive Surgery [facility] [address] [facility] [address] [place] [address] Gerardo Ackerman PA Aftercare following surgery of the skin or subcutaneous tissue (Primary Dx) 08/14/2024 7:30 AM EDT - 08/14/2024 9:00 AM EDT Surgery [facility] Main OR [address] [place] [id number] Jose Antonio Chavez DO EXCISION LESION *left nose WITH FROZEN [35634 (CPT??)] 08/14/2024 7:08 AM EDT - 08/14/2024 8:58 AM EDT Hospital Encounter [facility] OR [address] [place] [id number] Jose Antonio Chavez DO Basal cell carcinoma (BCC) of left side of nose Discharge Disposition: Home or Self Care 08/01/2024 Telephone General Surgery [facility] [address] [facility] [address] [place] [phone] Jos eAntonio Chavez DO surgery letter (08/01/24 mailed surgery letter) 07/19/2024 2:30 PM EDT Office Visit Plastic & Reconstructive Surgery [facility] [address] [facility] [address] [place] [address] Gerardo Ackerman PA Basal cell carcinoma (BCC) of left side of nose (Primary Dx) from Last 3 Months Social History Tobacco Use Types Packs/Day Years Used Date Smoking Tobacco: Former Cigarettes Q uit: 1994 Smokeless Tobacco: Never Tobacco Cessation:Counseling Given: Not Answered Alcohol Use Standard Drinks/Week Comments Yes 2 (1 standard drink = 0.6 oz pur e alcohol) Comments Unknown Sex and Gender Information Value Date Recorded Sex Assigned at Not on file Legal Sex Female 12:23 AM EST Gender Identity Not on file Sexual Orientation Not on file Obstetrics History Last Filed Vital Signs Vital Sign Reading Time Taken Comments Blood Pressure 142/75 08/14/2024 8:54 AM EDT Pulse 57 08/14/2024 8:54 AM EDT Temperature 36.1 ??C (97 ??F) 08/14/2024 8:54 AM EDT Respiratory Rate 19 08/14/2024 8:54 AM EDT Oxygen Saturation 97% 08/14/2024 8:54 AM EDT Inhaled Oxygen Concentration - - Weight 96.5 kg (212 lb 12.8 oz) 07/19/2024 2:13 PM EDT Height 165.1 cm (5' 5 ) 07/19/2024 2:13 PM EDT Body Mass Index 35.41 07/19/2024 2:13 PM EDT Plan of Treatment Health Maintenance Due Date Last Done Comments Breast Cancer Screening 1960 DTaP,Tdap,and Td Vaccines (1 - Tdap) 11/05/1979 Pneumococcal Vaccine: 50+ Years (1 of 2 - PCV) 11/05/1979 Pneumococcal Vaccine: Pediatrics (0 to 5 Years) and At-Risk Patients (6 to 64 Years) (1 of 2 - PCV) 11/05/1979 Zoster Vaccines (1 of 2) 11/05/1979 Cervical Cancer Screening: P ap Smear 1981 COVID-19 Vaccine (3 - Pfizer risk series) 08/05/2020 07/08/2020, 06/14/2020 Colorectal Cancer Screening: Colonoscopy 03/08/2022 Depression Screening 03/08/2022 HIV Screening 03/08/2022 Hepatitis C Screening 03/08/2022 Osteoporosis Screening (Bone Density Screening) 03/08/2022 Social Influencers of Health Screening 03/08/2022 Influenza Vaccine (Season Ended) 2024 Cholesterol Screening (Lipid Panel) 09/08/2025 09/08/2020 RSV Immunization Adult Patients (1 - 1-dose 75+ series) 11/05/2035 HIB Vaccines Aged Out No longer eligi ble based on patient's age to complete this topic HPV Vaccines Aged Out No longer eligi ble based on patient's age to complete this topic Hepatitis A Vaccines Aged Out No long er eligible based on patient's age to complete this topic Hepatitis B Vaccines Aged Out No long er eligible based on patient's age to complete this topic IPV Vaccines Aged Out No longer eligi ble based on patient's age to complete this topic MMR Vaccines Aged Out No longer eligi ble based on patient's age to complete this topic Meningococcal ACWY Vaccine Aged Out N o longer eligible based on patient's age to complete this topic Meningococcal B Vaccine Aged Out No l onger eligible based on patient's age to complete this topic RSV Immunization Patients Under 20 months Aged Out No longer eligible b ased on patient's age to complete this topic Varicella Vaccines Aged Out No longer eligible based on patient's age to complete this topic Procedures Procedure Name Priority Date/Time Associated Diagnosis Comments TISSUE EXAM Routine 08/14/2024 7:51 AM EDT Basal cell carcinoma (BCC) of left side of nose TN ADJ TISS XFER OR REARNG EYELIDS/NOSE/EARS /LIPS DFCT 10.1SQ CM-30.0SQ CM 08/14/2024 7:30 AM EDT Basal cell carcinoma (BCC) of left side of nose Case Notes WITH FROZEN Special Needs Minor room with frozen 75 min with 15 min clean TN EXCISION MALIGNANT LESION FACE/EARS/EYELIDS /NOSE/LIPS 1.1 - 2.0 CM 08/14/2024 7:30 AM EDT Basal cell carcinoma (BCC) of left side of nose Case Notes WITH FROZEN Special Needs Minor room with frozen 75 min with 15 min clean LIPID PANEL Routine 09/08/2020 from Last 3 Months or Most Recently Relevant to Health Maintenance Results * Tissue exam (08/14/2024 7:51 AM EDT) Final Diagnosis A, B Skin, left alar base-excision and reexcision additional margin 12 o'clock: -BASAL CELL CARCINOMA, NODULAR TYPE -Final margins negative 08/15/2024 9:38 AM EDT [facility] Gross Description A. Nose, bcc left alar base ink at 12 o clock: Labeled nose, BCC left . Received fresh for frozen section diagnosis is a 1.4 x 1 cm oriented león-white skin ellipse excised to a depth of 0.6 cm. There is ink on one tip designating 12:00 per the requisition. The 12-3-6 o'clock margin is inked blue, the 6-9-12 o'clock margin is inked black, and the epidermis of the 12:00 tip is inked green. The specimen is trisected and entirely submitted for frozen section diagnosis. The frozen section remnant is submitted in one cassette, three pieces. B. Nose, bcc left alar base additional margin 12 o clock ink at new 12: Labeled ID: 2, nose, BCC left . Received in formalin is a 0.7 x 0.1 x 0.1 cm irregular león-white skin fragment with a dot of new inked of blue ink designating new margin per the requisition. The dot of blue ink is overinked by the prosector. The specimen is submitted between sponges in one cassette, one piece. TAY 08/15/2024 9:38 AM EDT [facility] Intraoperative Consultation A. Nose, bcc left alar base ink at 12 o clock: FS BCC 12 O'CLOCK POSTITIVE Remaining margins negative 08/15/2024 9:38 AM EDT [facility] Disclaimer Unless otherwise specified, all tissue is 10% NB formalin fixed and paraffin embedded. 08/15/2024 9:38 AM EDT [facility] Tissue Nasal structure / Unknown 08/14/2024 7:51 AM EDT 08/14/2024 8:09 AM EDT Tissue specimen (specimen) Nasal structure / Unknown 08/14/2024 8:42 AM EDT 08/14/2024 10:04 AM EDT Jose Antonio Chavez DO LAB PATHOLOGY ORDERABLES Fin al Result [facility] [address] [place] [address], * Lipid panel (09/08/2020) Cholesterol 196 10 - 220 mg/dL Blood Venous blood specimen / Unknown us Historical Provider LAB BLOOD ORDERABLES Camille l Result from Last 3 Months or Most Recently Relevant to Health Maintenance Insurance MEDICARE MEDICAID - [place] Care Teams [employer] Law Clerk Relationship Specialty Start Date End Date Ming Leung MD [address] [place] [address] Rd [address] [place], [place] PCP - General Internal Medicine 05/25/24
== END 2024-09-12 12:08 | disposition home or self-care (01) ==
LOC: HO.RHE 11:13
PROVIDERS: PCP Nurse Practitioner; Visit Provider Student in an Organized Health Care Education/Training Program
DX: M05.79 Rheumatoid arthritis with rheumatoid factor of multiple sites without organ or systems involvement (principal); M85.88 Other specified disorders of bone density and structure, other site; M15.9 Polyosteoarthritis, unspecified; Z79.52 Long term (current) use of systemic steroids; Z51.81 Encounter for therapeutic drug level monitoring; Z79.620 Long term (current) use of immunosuppressive biologic
CPT/HCPCS: 99214

== ENCOUNTER → 2024-09-12 11:13 | Outpatient (BNVA) | payer MEDICAID, SELFPAY | PROVIDERS: PCP Nurse Practitioner; Visit Provider Student in an Organized Health Care Education/Training Program | DX: M05.9 Rheumatoid arthritis with rheumatoid factor, unspecified (principal); M85.80 Other specified disorders of bone density and structure, unspecified site; M15.9 Polyosteoarthritis, unspecified; Z79.52 Long term (current) use of systemic steroids; Z51.81 Encounter for therapeutic drug level monitoring; Z79.620 Long term (current) use of immunosuppressive biologic | CPT/HCPCS: 99212 ==

== ENCOUNTER 2025-01-01 14:40 | Outpatient (REF) | payer MEDICAID, SELFPAY ==
[2025-01-01 14:59] LABS: MANUAL DIFF FLAG NO
[2025-01-01 15:39] LABS: Hematocrit 42.7 % (37.0-47.0); Hemoglobin 14.0 g/dl (12.0-16.0); Imm Gran Abs Auto 0.03 X10*3/uL (0.00-0.03); Imm Gran Pct Auto 0.5 % (0.0-0.4); Lymphocytes Absolute Auto 1.4 X10*3/uL (1.2-4.9); Mean Corpuscular HGB Conc 32.8 g/dl (31.0-35.0); Mean Corpuscular Hemoglobin 31.8 pg (27.0-33.0); Mean Corpuscular Volume 97.0 fL (80.0-98.0); NRBC Abs Auto 0.000 X10*3/uL (0.0-0.012); NRBC Pct Auto 0.0 /100WBC (0.0-0.2); Platelet Count 244 X10*3/uL (160-400); Red Blood Count 4.40 X10*6/uL (4.20-5.50); White Blood Count 6.6 X10*3/uL (4.8-10.8)
--- OUTSIDE RECORDS SUMMARY | 2025-01-01 16:34 | XMS_ITS | Encounter Summary ---
Author Organization [facility] Address [address] [facility] [address] [place] [phone] Phone Care Team Providers Care Data Engineer Name Role Phone Unknown, Unknown Primary Care Provider Vito lucio Reason for Referral * Consultation (Within 1 month) - Closed Specialty Diagnoses / Procedures Referred By Contac t Referred To Contact Rheumatology Diagnoses RA (rheumatoid arthritis) Jose Foote MD Phone: tel: fax:[phone] [email or web address] Referral ID Status Reason Start Date Expiration Date Visits Re quested Visits Authorized [id number] Closed 06/03/2015 06/02/2016 1 1 Encounter Details Date Type Department Care Team (Late st Contact Info) Description 06/03/2015 Transcribe Orders [facility] Referral Management [address] [place] [address] Jose Foote MD [address] [address] [email or web address] RA (rheumatoid arthritis) (Primary Dx) Social History Tobacco Use Types Packs/Day Years Used Date Smoking Tobacco: Never Assessed Comments Unknown Sex and Gender Information Value Date Recorded Sex Assigned at Not on file Legal Sex Female 12:30 PM EST Gender Identity Not on file Sexual Orientation Not on file documented as of this encounter Plan of Treatment Scheduled Referrals Name Type Priority Associated Diagnoses Order Schedule Ambulatory referral to [facility]ology Outpatient Referral Routine RA (rheumatoid arthritis) Ordered: 06/03/2015 documented as of this encounter Visit Diagnoses Diagnosis RA (rheumatoid arthritis)- Primary Rheumatoid arthritis documented in this encounter Care Teams Data Engineer Relationship Specialty Start Date End Date Unknown, Unknown, MD PCP - General 04/18/15 documented as of this encounter Additional Source Comments The information contained in this document represents components of the legal health record. It is not the complete legal health record.[facility]
--- OUTSIDE RECORDS SUMMARY | 2025-01-01 16:34 | XMS_ITS | Clinical Summary ---
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 Name Role Phone Ming Leung MD Primary Care Provider [phone] Allergies Active Allergy Reactions Criticality Noted Date [...] (BCC) of left side of nose 07/19/2024 Social History Tobacco Use Types Packs/Day Years [...] 57 08/14/2024 8:54 AM EDT Temperature 36.1 C (97 F) 08/14/2024 8:54 AM EDT Respiratory Rate 19 [...] DTaP,Tdap,and Td Vaccines (1 - Tdap) 11/05/1979 Zoster Vaccines (1 of 2) 11/05/1979 Cervical Cancer Screening: P ap Smear 1981 Pneumococcal Vaccine: 50+ Years (1 of 1 - PCV) 2010 COVID-19 Vaccine (3 - Pfizer risk series) 08/05/2020 07/08/2020, 06/14/2020 Colorectal Cancer Screening: Colonoscopy 03/08/2022 HIV Screening 03/08/2022 Hepatitis C Screening 03/08/2022 Osteoporosis Screening (Bone Density Screening) 03/08/2022 Social Influencers of Health Screening 03/08/2022 Depression Screening 04/05/2024 Influenza Vaccine (#1) 2024 Cholesterol Screening (Lipid Panel) 09/08/2025 09/08/2020 [...] Procedure Name Priority Date/Time Associated Diagnosis Comments LIPID PANEL Routine 09/08/2020 from Last 3 Months or Most Recently Relevant to Health Maintenance Results * Lipid panel (09/08/2020) Cholesterol 196 10 - 220 mg/dL Blood Venous blood specimen / Unknown [facility] Provider LAB BLOOD ORDERABLES Camille l Result from Last 3 Months or Most Recently Relevant to Health Maintenance Insurance MEDICARE [place]ICAID - [place] Care Teams Diesel Engine Erector Relationship Specialty Start Date End Date Ming Leung MD [address] [facility] [address] [place], [place] PCP - General Internal Medicine 05/25/24
--- OUTSIDE RECORDS SUMMARY | 2025-01-01 16:34 | XMS_ITS | Clinical Summary ---
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 50 tablet 6 6 Active folic acid (FOLVITE) 1 MG tablet Take 1 tablet (1 mg total) by mouth daily. 30 tablet 6 6 Active predniSONE (DELTASONE) 5 MG tablet Take 1 tablet (5 mg total) by mouth daily. 30 tablet 6 6 Active abatacept (ORENCIA) 125 mg/mL Syrg subcutaneous injection syringe Inject 1 mL (125 mg total) under the skin every 7 days. 4 Syringe 6 6 Active leucovorin (WELLCOVORIN) 5 mg tablet Take 3 tablets (15 mg total) by mouth every 7 days. 12 tablet 6 6 Active Active Problems No known active problems Social History Tobacco Use Types Packs/Day Years Used Date Smoking Tobacco: Never Assessed Education Answer Date Recorded Are you interested in more education? Not on tahira e 07/31/2022 Are you concerned about learning? Not on file 07/31/2022 No 07/31/2022 No 07/31/2022 Digital Access Answer Date Recorded No 08/31/2022 No 08/31/2022 Reliable internet access at home? Not on file 08/31/2022 Device with a working camera? Not on file Comments Unknown Sex and Gender Information Value Date Recorded Sex Assigned at Not on file Legal Sex Female 12:30 PM EST Gender Identity Not on file Sexual Orientation Not on file Last Filed Vital Signs Vital Sign Reading Time Taken Comments Blood Pressure 161/91 09/16/2015 12:36 PM EDT Pulse 60 09/16/2015 12:36 PM EDT Temperature 36.5 C (97.7 F) 09/16/2015 12:36 PM EDT Respiratory Rate 16 09/16/2015 12:36 PM EDT Oxygen Saturation - - Inhaled Oxygen Concentration - - Weight 98.9 kg (218 lb) 09/16/2015 12:36 PM EDT Height 170.2 cm (5' 7 ) 09/16/2015 12:36 PM EDT Body Mass Index 34.14 09/16/2015 12:36 PM EDT Plan of Treatment Health Maintenance Due Date Last Done Comments Adult Td,Tdap Booster 1960 LIPID PANEL 1960 DEPRESSION SCREENING 1972 SMOKING Hx and SMOKELESS TOBACCO SCREENING 1973 HIV ONE-TIME SCREENING (18-6 5 YEARS) 1978 PNEUMOCOCCAL VACCINES (50+ years) (1 of 2 - PCV) 11/05/1979 ZOSTER VACCINES (1 of 2) 11/05/1979 PAP SMEAR 1981 MAMMOGRAM 2000 COLOGUARD 2005 COLONOSCOPY 2005 COLORECTAL CANCER SCREENING 2005 FIT TEST 2005 FOBT 2005 SIGMOIDOSCOPY 2005 VIRTUAL COLONOSCOPY 2005 COVID-19 VACCINE (3 - Pfizer risk series) 08/05/2020 07/08/2020, 06/14/2020 RSV VACCINE (1 - Risk 60-74 years 1-dose series) 2020 INFLUENZA VACCINE (#1) 2024 HEPATITIS C SCREENING Completed 07/05/2015 HEPATITIS A VACCINES Aged Out No long er eligible based on patient's age to complete this topic HIB VACCINES Aged Out No longer eligi ble based on patient's age to complete this topic MENINGOCOCCAL VACCINES (ACWY) Aged Out No longer eligible based on patient's age to complete this topic MENINGOCOCCAL VACCINES (B) Aged Out N o longer eligible based on patient's age to complete this topic Medical Devices Not on file Procedures Procedure Name Priority Date/Time Associated Diagnosis Comments HEPATITIS C ANTIBODY, QUALITATIVE Routine 07/05/2015 12:00 PM EDT Rheumatoid arthritis from Last 3 Months or Most Recently Relevant to Health Maintenance Results * Hepatitis C antibody, qualitative (07/05/2015 12:00 PM EDT) HCV Antibody Negative [facility]G [facility] Comment: Antibodies to HCV not detected. Does not exclude the possibility of exposure to HCV. 07/05/2015 12:0 0 PM EDT 07/05/2015 12:00 PM EDT Comment:BLOOD us Faye Macias MD LAB BLOOD ORDERABLES Final Re sult [facility] [address] [place] [address] from Last 3 Months or Most Recently Relevant to Health Maintenance Insurance [facility] PPO [facility] [place] [address] [place] [address] PPO [facility] PPO [employer]OSS OUT OF STATE PPO BL[employer] OUT OF STATE PPO [employer] OUT OF STATE [place] [address] [address] OUT [facility] PPO [facility] OUT [facility] PPO Care Teams Blasting Coal Miner Relationship Specialty Start Date End Date Unknown, Unknown, MD PCP - General 04/18/15 Additional Source Comments The information contained in this document represents components of the legal health record. It is not the complete legal health record.[facility]
[2025-01-01 16:44] LABS: Alanine Aminotransferase 42 U/L (0-31); Albumin Level 4.6 g/dL (3.5-5.0); Alkaline Phosphatase 67 U/L (39-117); Anion Gap 11 (12-20); Aspartate Amino Transferase 39 U/L (5-31); Blood Urea Nitrogen 13 mg/dL (9-16); Calcium 9.9 mg/dL (8.4-10.2); Carbon Dioxide 30 mmol/L (22-29); Chloride 105 mmol/L (96-108); Cholesterol 273 mg/dL (<200); Estimated Glomerular Filt Rate > 60; HDL Cholesterol 59 mg/dL (>40); Potassium 4.9 mmol/L (3.3-5.1); Sodium 141 mmol/L (135-145); Total Protein 7.2 g/dL (6.5-8.0); Triglycerides 279 mg/dL (<150)
== END 2025-01-01 14:41 | disposition home or self-care (01) ==
LOC: HO.LAB 14:40
PROVIDERS: PCP Nurse Practitioner; Visit Provider Student in an Organized Health Care Education/Training Program
DX: M05.9 Rheumatoid arthritis with rheumatoid factor, unspecified (principal); E55.9 Vitamin D deficiency, unspecified
CPT/HCPCS: 36415; 80053; 80061; 82306; 85025; 85652; 86140

== ENCOUNTER 2025-01-03 14:34 | Outpatient (AMB) | payer MEDICAID, SELFPAY ==
--- NOTE | 2025-01-03 14:40 | MHC.OFFVIS ---
Vital Signs 01/03/25 14:46 Height 5 ft 7 in Weight 207 lb 7.28 oz BMI 32.5 BP 130/70 Blood Pressure Location Lt brachial Position Sitting Pulse 75 Pulse Source Pulse Oximeter Pulse Oximetry (%) 98 Oxygen Delivery Method Room Air Intake Visit Reasons: RA Intake Note: Patient presents for RA follow up. Allergies amoxicillin (Augmentin) Allergy (Severe, Verified 01/03/25 14:43) Anaphylaxis clavulanic acid (Augmentin) Allergy (Severe, Verified 01/03/25 14:43) Anaphylaxis NSAIDS (Non-Steroidal Anti-Inflamma Allergy (Severe, Verified 01/03/25 14:43) Anaphylaxis penicillin V Allergy (Severe, Verified 01/03/25 14:43) Rash hydroxychloroquine (Plaquenil) Allergy (Intermediate, Verified 01/03/25 14:43) rash sarilumab (From Kevzara) Allergy (Verified 01/03/25 14:43) injection site reaction Medication List - Last Reconciled 01/03/25 by Mary Ellen Rodríguez MD acetaminophen 650 mg (2 x 325 mg) PO Q6H PRN 30 days amlodipine-benazepril 5-10 mg 1 cap PO DAILY calcium carbonate (Calcium 600) 600 mg PO DAILY cetirizine (Zyrtec) 10 mg PO DAILY PRN cholecalciferol (vitamin D3) (Vitamin D3) 10 mcg PO DAILY clotrimazole-betamethasone 1-0.05 % 1 appl topical BID folic acid 1 mg PO DAILY multivitamin 1 tab PO DAILY prednisone 2 mg (2 x 1 mg) PO DAILY 90 days sertraline 75 mg PO DAILY tocilizumab (Actemra ACTPen) 162 mg (0.9 mL) subcut QWEEK walker Folding Front wheeled walker HPI Comments Details: Patient is a 64-year-old female with hypertension, osteopenia with high fracture risk, polyarticular osteoarthritis (bilateral shoulder OA) and seropositive rheumatoid arthritis here today for follow up Interval History: Patient last seen 09/12/24 with me - On Actemra 162mg weekly SC and prednisone 2mg daily - No significant change in her symptoms - Has been doing prednisone 3mg/2mg alternating days - Still holding off shoulder replacement for now - 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 Humira- injection site reaction Enbrel- injection site reaction- prior to 2013 Orencia- 02/2014-07/2020 discontinued due to active synovitis 09/23-02/2021 Kevzara - 09/2020 -injection site reaction and was started back on Orencia Actemra - 02/2021- present MTX self DC 2022 with no resultant flare Current Rheumatology Medication(s): Actemra 162mg weekly SC Prenisone 2mg daily PFSH Medical History (Updated 09/12/24 @ 12:35 by Mary Ellen Rodríguez MD) Urinary incontinence Depression Elevated blood pressure reading Osteoarthritis of right knee Post-operative nausea and vomiting Hiatal hernia COVID-19 vaccine series completed Psoriasis Surgical History History of cancer surgery Status post right knee replacement H/O colonoscopy Hx of appendectomy Hx of right knee surgery Hx of tubal ligation Family History Mother Diabetes Father Alzheimer disease Social History Household Members: Spouse Housing: House Are you a primary healthcare associate to a significant other at home: No Do you presently have visiting nurse or other home services: No Alcohol intake: current Alcohol intake frequency: 0-2 drinks per day Patient Tobacco Use Status: Former Tobacco user Tobacco use type: Cigarette Cigarettes Per Day: 15 Years Smoked: 6 service: No Current occupational status: disabled Review of Systems Const Details: Review of Systems Constitutional: Denies fever, chills, weight loss ENT: Denies vision changes, eye pain or eye redness, dental caries, dry mouth GI: Denies nausea, vomiting, diarrhea, abdominal pain, change in BM Pulm: Denies SOB, MEJIA, hemoptysis, wheezing Cards: Denies chest pain, palpitations Skin: Denies Raynaud's, rash, nail changes, photosensitivity, SHIPPING TECHNICIAN: Denies headaches, weakness, paresthesias, recurrent falls MSK: as per HPI All other systems reviewed and are unremarkable except noted above Physical Exam Exam Exam: Vital signs reviewed Physical Examination CONSTITUITIONAL Patient alert and cooperative. Well appearing and in no apparent painful distress MSK Hands Right Hand: Able to make a fist. No swelling or tenderness to palpation of the MCPs, PIPs or DIPs. Left Hand: Able to make a fist. No swelling or tenderness to palpation of the MCPs, PIPs or DIPs. Prominent herbedens nodes noted bilaterally with flexion deformities Wrists Right Wrist: Full ROM to flexion and extension. No swelling or TTP Left Wrist: Full ROM to flexion and extension. No swelling or TTP Elbows Right Elbow: Full ROM. No swelling or TTP. No TTP of the medial epicondyle. No TTP of the lateral epicondyle Left Elbow: Full ROM. No swelling or TTP. No TTP of the medial epicondyle. No TTP of the lateral epicondyle Shoulders Right shoulder: Reduced ROM. No swelling noted. No TTP of the AC joint. TTP of the subacromial bursa. No TTP of the posterior shoulder Left shoulder: Reduced ROM. No swelling noted. No TTP of the AC joint. TTP of the subacromial bursa. No TTP of the posterior shoulder Hip bursa: No tenderness to palpation bilaterally Knees Right knee: Full ROM. No swelling noted. No TTP of the knee joint line. No TTP of pes anserine bursa Left knee: Full ROM. No swelling noted. No TTP of the knee joint line. No TTP of pes anserine bursa. Crepitations felt bilaterally Ankles Right ankle: Good ankle dorsiflexion and plantar flexion. No swelling. No TTP of the ankle joint Left ankle: Good ankle dorsiflexion and plantar flexion. No swelling. No TTP of the ankle joint Feet Right foot: Negative squeeze test Left foot: Negative squeeze test Tender points? No tenderness to palpation of the bilateral trapezius, supraspinatus, anterior costochondral junctions, bilateral suboccipital muscle insertions SKIN No rashes Vital Signs: Last Vital Signs Pulse 75 01/03/25 14:46 BP 130/70 01/03/25 14:46 Pulse Ox 98 01/03/25 14:46 Oxygen Delivery Method Room Air 01/03/25 14:46 BMI result Body Mass Index 32.5 Office Procedures AMB Joint Injection/Aspiration Joint Injection/Aspiration Details: Procedure was explained to the patient and informed consent was obtained. ? Risks associated with the procedure were discussed with the patient including but not limited to bleeding, infection, drug reactions and reactions to the topical anesthetic. Patient made aware of signs to look out for infectious complications. The area of interest was identified and confirmed with patient. ?This was subsequently cleaned with chlorhexidine x 2. ? The area was then anesthetized using ethyl chloride spray. 40 mg Kenalog with 1 cc 1% lidocaine was injected without issue. ?Minimal to no bleeding. ?Patient tolerated procedure. Primary Site: right shoulder Prep: site was prepped using aseptic technique and ethochloride spray was applied Injected: 40 mg of, Kenalog, with 1 mL of and 1% plain lidocaine Procedure: The patient tolerated the procedure well Coding 52111 - Large joint Procedure code (CPT) selection complete AMB Joint Injection/Aspiration Joint Injection/Aspiration Details: Procedure was explained to the patient and informed consent was obtained. ? Risks associated with the procedure were discussed with the patient including but not limited to bleeding, infection, drug reactions and reactions to the topical anesthetic. Patient made aware of signs to look out for infectious complications. The area of interest was identified and confirmed with patient. ?This was subsequently cleaned with chlorhexidine x 2. ? The area was then anesthetized using ethyl chloride spray. 40 mg Kenalog with 1 cc 1% lidocaine was injected without issue. ?Minimal to no bleeding. ?Patient tolerated procedure. Primary Site: left shoulder Prep: site was prepped using aseptic technique and ethochloride spray was applied Injected: 40 mg of, Kenalog, with 1 mL of and 1% plain lidocaine Procedure: The patient tolerated the procedure well Coding 62196 - Large joint Procedure code (CPT) selection complete Office Meds lidocaine (PF) 10 mg/mL (1 %) injection solution Performing Provider: Mary Ellen Rodríguez MD Performing Location: [facility] Administered by: Lane Melgoza RN on 01/03/25 15:35 Dose Route Admin Location Dispensed Lot Number Expiration Date [facility] Cooling System Operator 1 mL Infiltration right shoulder 2 mL [id number] 07/03/26 99279-327-32 [employer] Total Dispensed Waste 2 mL 50 % Kenalog 40 mg/mL suspension for injection Performing Provider: Mary Ellen Rodríguez MD Performing Location: [facility] Administered by: Lane Melgoza RN on 01/03/25 15:35 Dose Route Admin Location Dispensed Lot Number Expiration Date [facility] Cooling System Operator 40 mg intrabursal right shoulder 1 mL [id number] 09/02/26 [address]-8 [employer] Total Dispensed Waste 1 mL 0 % lidocaine (PF) 10 mg/mL (1 %) injection solution Performing Provider: Mary Ellen Rodríguez MD Performing Location: [facility] Administered by: Lane Melgoza RN on 01/03/25 15:35 Dose Route Admin Location Dispensed Lot Number Expiration Date [facility] Cooling System Operator 1 mL Infiltration left shoulder 2 mL [id number] 07/03/26 48961-853-42 [employer] Total Dispensed Waste 2 mL 50 % Kenalog 40 mg/mL suspension for injection Performing Provider: Mary Ellen Rodríguez MD Performing Location: [facility] Administered by: Lane Melgoza RN on 01/03/25 15:35 Dose Route Admin Location Dispensed Lot Number Expiration Date [facility] Cooling System Operator 40 mg intrabursal left shoulder 1 mL [id number] 09/02/26 [address]-4 [employer] Total Dispensed Waste 1 mL 0 % Results Reviewed Results Reviewed: Laboratory Tests 01/01/25 14:57 WBC 6.6 RBC 4.40 Hgb 14.0 Hct 42.7 Plt Count 244 ESR 5 Sodium 141 Potassium 4.9 Chloride 105 Carbon Dioxide 30 H BUN 13 Creatinine 0.66 AST 39 H ALT 42 H C-Reactive Protein < 0.04 Triglycerides 279 H Cholesterol 273 H LDL Cholesterol, Calc 159 H 25-OH Vitamin D Total 54.1 Laboratory Tests 02/05/23 10:30 Hepatitis A IgM Ab Nonreactive Hep Bs Antigen Negative Hep Bs Antibody NONREACTIVE Hep B Core Total Ab Nonreactive Hepatitis C Ab (EIA) Nonreactive TB Test (T-Spot) Com Negative Assessment & Plan Assessment & Plan (1) Seropositive rheumatoid arthritis: Comment: ++RF++CCP Dx in 2010. Humira- injection site reaction Enbrel- injection site reaction- prior to 2013 Orencia- 02/2014-07/2020 discontinued due to active synovitis 09/23-02/2021 Kevzara - 09/2020 -injection site reaction and was started back on Orencia Actemra - 02/2021- present MTX self DC 2022 with no resultant flare Code(s): M05.9 - Rheumatoid arthritis with rheumatoid factor, unspecified Category: Medical Plan: #Seropositive RA Patient is a 64 y.o. female with seropositive RA here today for follow up. Currently in remission on Actemra monotherapy, weekly. Doing good on prednisone 2mg daily Will hold at this dose for now Note made of new transaminitis. This could be related to her Actemra injections. We will continue to monitor. Advised patient to reduce her fatty food and high cholesterol food intake. Given steroid injection to bilateral shoulders to help reduce her Tylenol intake Plan - Prednisone to 2mg daily - Actemra 162mg weekly SC - RTC 4 months - Labs before visit: CBC, CMP, ESR, CRP, Hepatitis panel and T spot (2) Osteopenia with high risk of fracture: Comment: DEXA 05/2021: AP spine -1.5, Left femur neck -2.0, Left femur total -1.2 FRAX 50.5/5.4 DEXA 06/2024: AP spine -1.7, Left femur neck -1.5, Left femur total -0.9 FRAX 27.2/3.6 Alendonate 05/2021 - 09/2024. Drug holiday in the setting of dental procedures Code(s): M85.80 - Other specified disorders of bone density and structure, unspecified site Category: Medical Plan: #Osteopenia with high FRAX Patient with osteopenia and high FRAX. Patient has not been consistent with taking her alendronate. Despite this she has had overall improvement in her bone density. Her spine bone density is about the same whereas her hip bone density has improved 4-8%. I think it is okay for her to hold the alendronate and she has been on it for the past 3 years. Encouraged and reinforced weight-bearing exercises and having her outdoor fitness trainer, with the exercise plan that we will increase weight-bearing exercises to hip and spine Plan - DEXA 05/2026 - Continue Vit D supplementation (3) Polyarticular osteoarthritis: Code(s): M15.9 - Polyosteoarthritis, unspecified Plan: #Polyarticular OA Patient with polyarticular osteoarthritis. Known severe osteoarthritis of bilateral shoulders. Follows with ortho. 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: Code(s): Z79.52 - correction (current) use of systemic steroids Category: Medical Plan: #Long-term Use of Steroids Discussed with patient the risks and benefits of steroid for managing the rheumatic condition Benefits include: - Reduced pain, improved mobility, increased participation in activities, and decreased progression of disease Risks include: - GI upset, potential ultrasound worsening or formation (especially in patients > 65 years old), elevated blood pressure/worsening hypertension, elevated blood sugar/worsening diabetes control, worsening of bone density, elevated lipids/worsening triglycerides, cataract formation, weight gain Recommended using proton pump inhibitors (PPIs) for the duration of steroid use to reduce the risk of gastric ulcers and vitamin-D daily to reduce the risk of osteoporosis Labs checked: ?A1c, T spot, hepatitis-B and C serologies Pneumocystis jiroveci prophylaxis: ?Patient with risk factors including steroids greater than 50 mg for more than 30 days, age greater than 60 years, and lung involvement from underlying rheumatic disease requires prophylaxis and will be given so (5) Encounter for monitoring tocilizumab therapy: Code(s): Z51.81 - Encounter for therapeutic drug level monitoring; Z79.620 - tank terminal gauger (current) use of immunosuppressive biologic Plan: #Long-term Use of Tocilizumab Discussed the risks and benefits of tocilizumab with the management of this patient's rheumatic condition. ? Benefits include decreased pain, improved mortality, improved quality of life Risks include LFT abnormalities, elevated triglycerides, GI perforations Contraindicated in a patient with history of diverticulitis Monitoring: ?CBC, CMP, triglycerides Plan I spent 30 minutes reviewing the record and labs, taking a history, examining the patient, discussing the treatment plan, ordering diagnostic work up and documenting in the medical record Orders: Orders AMB Joint Injection/Aspiration Today M75.50 - Bursitis of unspecified shoulder Complete Blood Count Auto Diff 4 Months Z.899 - Other dedicated intermodal truck driver (current) drug therapy Erythrocyte Sedimentation Rate 4 Months Z.899 - Other custodial (current) drug therapy T Spot TB 4 Months Z.89 - Other custodial (current) drug therapy Lipid Panel 4 Months Z. - Other custodial (current) drug therapy Hepatitis B,C Profile 4 Months Z.89 - Other dedicated intermodal truck driver (current) drug therapy AMB Joint Injection/Aspiration Today M75.50 - Bursitis of unspecified shoulder Comprehensive Met. Panel 4 Months Z.899 - Other dedicated intermodal truck driver (current) drug therapy C Reactive Protein 4 Months Z79.899 - Other dedicated intermodal truck driver (current) drug therapy Coding Level of Care Code Est Pt Level 4 (47196) Complex EM visit Add On G2211 Diagnoses Seropositive rheumatoid arthritis M05.9 Osteopenia with high risk of fracture M85.80 Polyarticular osteoarthritis M15.9 tank terminal gauger systemic steroid user Z79.52 Encounter for monitoring tocilizumab therapy Z51.81; Z79.620 CPT Codes Coding - 17735 Large joint: 28573 - Large joint ([id number]) Coding - 31009 Large joint: 14928 - Large joint ([id number])
[2025-01-03 14:46] VITALS: BP 130/70; PULSE 75; O2SAT 98; BMI 32.5
--- OUTSIDE RECORDS SUMMARY | 2025-01-03 15:46 | XMS_ITS | Clinical Summary ---
Author Organization [facility] Address [address] [employer] [facility] [address] [place] [phone] Phone Care Team Providers Care Director International Name Role Phone Unknown, Unknown Primary Care [...] 12:00 PM EDT) HCV Antibody Negative [facility]G [facility] Comment: Antibodies to HCV not detected. Does not exclude the possibility of exposure to HCV. 07/05/2015 12:0 0 PM EDT 07/05/2015 12:00 PM EDT Comment:BLOOD us Faye Macias MD LAB BLOOD ORDERABLES Final Re sult [facility] [address] [place] [address] from Last 3 Months or Most Recently Relevant to Health Maintenance Insurance [facility] PPO [facility] [place] [address] [place] [address] PPO [facility] PPO [employer] OUT OF STATE PPO BL[employer] OUT OF STATE PPO [employer] OUT OF STATE [place] [address] [place] [address] OUT [facility] PPO [facility] PPO Care Teams Director International Relationship Specialty Start Date End Date Unknown, Unknown, MD PCP - General 04/18/15 Additional Source Comments The information contained in this document represents components of the legal health record. It is not the complete legal health record.[facility]
--- OUTSIDE RECORDS SUMMARY | 2025-01-03 15:46 | XMS_ITS | Clinical Summary ---
Author Organization 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 Role Phone Ming Leung MD Primary Care Provider [phone] Allergies Active Allergy Reactions Criticality Noted Date [...] Last Done Comments Breast Cancer Screening 1960 Colorectal Cancer Screening: Colonoscopy 1960 DTaP,Tdap,and Td Vaccines (1 - Tdap) 11/05/1979 Zoster Vaccines (1 of 2) 11/05/1979 Cervical Cancer Screening: P ap Smear 1981 Pneumococcal Vaccine: 50+ Years (1 of 1 - PCV) 2010 COVID-19 Vaccine (3 - Pfizer risk series) 08/05/2020 07/08/2020, 06/14/2020 HIV Screening 03/08/2022 Hepatitis C Screening 03/08/2022 [...] mg/dL Blood Venous blood specimen / Unknown [facility] Provider LAB BLOOD ORDERABLES Camille l Result from Last 3 Months or Most Recently Relevant to Health Maintenance Insurance MEDICARE [place] - [place] Care Teams 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
--- OUTSIDE RECORDS SUMMARY | 2025-01-03 15:46 | XMS_ITS | Encounter Summary ---
Author Organization [facility] Address [address] [place] [id number] Phone Care Team Providers Care French Translator Name Role Phone Unknown, Unknown Primary Care Provider Vito lucio Reason for Referral * Consultation (Within 1 month) - Closed Specialty Diagnoses / Procedures Referred By Contac t Referred To Contact Rheumatology Diagnoses RA (rheumatoid arthritis) Jose Foote MD Phone: tel: fax:[phone] [email or web address] Referral ID Status Reason Start Date Expiration Date Visits Re quested Visits Authorized [id number] Closed 06/03/2015 06/02/2016 1 1 Encounter Details Date Type Department Care Team (Late st Contact Info) Description 06/03/2015 Transcribe Orders [facility] Referral Management [address] [place] [address] Jose Foote MD [address] [address] [email or web address] RA (rheumatoid arthritis) (Primary Dx) Social History [...] Associated Diagnoses Order Schedule Ambulatory referral to [facility] Rheumatology Outpatient Referral Routine RA (rheumatoid arthritis) Ordered: 06/03/2015 documented as of this encounter Visit Diagnoses Diagnosis RA (rheumatoid arthritis)- Primary Rheumatoid arthritis documented in this encounter Care Teams French Translator Relationship Specialty Start Date End Date Unknown, Unknown, MD PCP - General 04/18/15 documented as of this encounter Additional Source Comments The information contained in this document represents components of the legal health record. It is not the complete legal health record.[facility]
== END 2025-01-03 15:34 | disposition home or self-care (01) ==
LOC: HO.RHES 14:34
PROVIDERS: PCP Nurse Practitioner; Visit Provider Student in an Organized Health Care Education/Training Program
DX: M05.79 Rheumatoid arthritis with rheumatoid factor of multiple sites without organ or systems involvement (principal); M25.511 Pain in right shoulder; M25.512 Pain in left shoulder; M85.80 Other specified disorders of bone density and structure, unspecified site; M15.9 Polyosteoarthritis, unspecified; Z79.52 Long term (current) use of systemic steroids; Z51.81 Encounter for therapeutic drug level monitoring; Z79.620 Long term (current) use of immunosuppressive biologic
CPT/HCPCS: 20610; 99214

== ENCOUNTER → 2025-01-03 14:34 | Outpatient (BNVA) | payer MEDICAID, SELFPAY | PROVIDERS: PCP Nurse Practitioner; Visit Provider Student in an Organized Health Care Education/Training Program | DX: M05.9 Rheumatoid arthritis with rheumatoid factor, unspecified (principal); M75.50 Bursitis of unspecified shoulder; M85.80 Other specified disorders of bone density and structure, unspecified site; M15.9 Polyosteoarthritis, unspecified; Z51.81 Encounter for therapeutic drug level monitoring; Z79.52 Long term (current) use of systemic steroids; Z79.620 Long term (current) use of immunosuppressive biologic; Z79.899 Other long term (current) drug therapy | CPT/HCPCS: 20610; 99212; J2003; J3301 ==